=== PATIENT | female | born 1965 | race African-American/Black ===

== ENCOUNTER 2021-02-14 08:36 | Outpatient (REF) | payer OTHER, SELFPAY ==
--- NOTE | ~2021-02-14 | XR_ITS ---
EXAMINATION: XR knee LT 3V CLINICAL INFORMATION: Reason for Exam M25.569 - Pain in unspecified knee COMPARISON: None available at the time of this dictation. TECHNIQUE: Bilateral frontal, left lateral and patella sunrise view. FINDINGS: BONES: No fracture or dislocation is present. JOINTS: Mild narrowing of joint spaces suggest mild DJD. SOFT TISSUE: There are heavy vascular calcifications. XR/XR knee LT 3V IMPRESSION: Mild degenerative osteoarthritis involving primarily medial compartment.
== END 2021-02-14 08:37 | disposition home or self-care (01) ==
LOC: HO.HOSX 08:36
PROVIDERS: Visit Provider Physician Assistant
DX: M17.12 Unilateral primary osteoarthritis, left knee (principal); M25.562 Pain in left knee; Z88.1 Allergy status to other antibiotic agents; Z88.8 Allergy status to other drugs, medicaments and biological substances
CPT/HCPCS: 20610; 73562; J1040

== ENCOUNTER 2022-07-15 08:23 | Outpatient (REF) | payer OTHER, SELFPAY ==
--- NOTE | ~2022-07-15 | XR_ITS ---
EXAMINATION: XR HAND, RIGHT CLINICAL INFORMATION: Pain COMPARISON: None TECHNIQUE: PA, lateral, and oblique views of the right hand. FINDINGS: The bones and soft tissues are normal. No fracture. Alignment is anatomic. Joint spaces are maintained. No erosions or soft tissue calcifications. XR/XR hand RT min 3V IMPRESSION: Normal right hand.
== END 2022-07-15 08:24 | disposition home or self-care (01) ==
LOC: HO.HOSX 08:23
PROVIDERS: Visit Provider Orthopaedic Surgery
DX: M65.311 Trigger thumb, right thumb (principal)
CPT/HCPCS: 20550; 73130; J1100

== ENCOUNTER 2023-11-17 08:40 | Outpatient (AMB) | payer OTHER, SELFPAY ==
--- NOTE | 2023-11-17 08:43 | A.OFFVIS_ITS ---
Intake Intake Visit Reasons: Newprob-Left thumb pain- Intake Note: Lisa 58 yr old female who is right hand dominant, presents today for a new problem visit for her Left thumb pain. Patient reports her thumb strated to lock about 4 months ago and is very painful. S/P right thumb trigger injection from 10/15/[address] Flowers. Patient is requesting an injection today. Allergies amoxicillin Allergy (Unknown, Verified 11/17/23 08:51) unk doxycycline Allergy (Unknown, Verified 11/17/23 08:51) unk Erythromycin Allergy (Unknown, Uncoded 11/17/23 08:51) unk HPI Newprob-Left thumb pain- HPI Details Lisa is a 58 year old right hand dominant woman who returns with complaints of new left thumb locking. She says for ~4 months now her left thumb has been locking painfully on her. She found good relief from a right trigger thumb injection on 07/15/22, and would like to discuss an injection today. 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 Review of Systems Const All systems reviewed & are unremarkable except as noted in HPI and below Physical Exam Const General: no acute distress and alert Orientation/consciousness: patient oriented x3 Neuro General: patient oriented x3 Extrem Other: Evaluation of Left Upper Extremity: The patient is alert, oriented, and in no acute distress Neuro: Median, Ulnar, Radial nerves motor and sensory intact and sensation is normal to the tips of all digits Vascular: Cap refill brisk ROM: She can make a fist and extend all her digits Visible and palpable locking & catching of the thumb Tender over the a1 sky of the thumb Psych Appearance: grossly normal Affect: normal affect Attitude: cooperative Office Procedures Fracture Care Details: No fracture, injection Fracture Billing Code: Fracture Billing Code Assessment & Plan Assessment & Plan (1) Trigger thumb, right thumb: Code(s): M65.311 - Trigger thumb, right thumb (2) Trigger thumb, left thumb: Code(s): M65.312 - Trigger thumb, left thumb Plan Assessment & Plan: 1. Left trigger thumb I educated her about this condition I discussed operative and non-operative treatment options She wishes to proceed with an injection Injection #1: The risks and benefits of a steroid injection including but not limited to risk of damage to blood vessels, nerves, tendons, infection, skin bleaching, failure to improve symptoms, increased pain, and possible need for further injections or other intervention were discussed with the patient and the patient wishes to proceed with the steroid injection. Once consent was obtained, I sterilely prepped the area over the A1 sky of the flexor tendon sheath of the left thumb. I then injected the flexor tendon sheath with a combination of 1 mL of dexamethasone (4mg/ml), and 1% lidocaine. The patient tolerated the procedure well with no complications. If the patient continues to have locking and catching 4-6 weeks following this injection, they may call to schedule appointment to be seen for possible A1 sky release. Follow-up prn 2. Right trigger thumb, S/P injection Date of Injection: 07/15/22 Good resolution of her symptoms Scribed for Mae Flowers MD by Kwame Hernandez medical records field technician, on 11/17/23 at 9:10 AM, EST. Coding Level of Care Code Est Pt Level 4 (88108) Diagnoses Trigger thumb, right thumb M65.311 Trigger thumb, left thumb M65.312 CPT Codes Fracture Care - Fracture Billing Code: Fracture Billing Code ([id number])
== END 2023-11-17 09:18 | disposition home or self-care (01) ==
PROVIDERS: PCP Internal Medicine; Visit Provider Orthopaedic Surgery
DX: M65.311 Trigger thumb, right thumb (principal); M65.312 Trigger thumb, left thumb
CPT/HCPCS: 20550; 99213

== ENCOUNTER → 2023-11-17 08:40 | Outpatient (BNVA) | payer OTHER, SELFPAY | PROVIDERS: PCP Internal Medicine; Visit Provider Orthopaedic Surgery | DX: M65.312 Trigger thumb, left thumb (principal); M65.311 Trigger thumb, right thumb | CPT/HCPCS: 20550; J1100 ==

== ENCOUNTER 2024-03-08 12:31 | Outpatient (AMB) | payer OTHER, SELFPAY ==
--- NOTE | 2024-03-08 12:49 | A.OFFVIS_ITS ---
Intake Visit Reasons: OV-left thumb injection-last injection 11/17/23 Intake Note: Lisa 59 yr old female presents today for her left thumb injection s/p trigger injection from 11/17/23. States injection did not help, however she would like to repeat. Allergies amoxicillin Allergy (Unknown, Verified 11/17/23 08:51) unk doxycycline Allergy (Unknown, Verified 11/17/23 08:51) unk Erythromycin Allergy (Unknown, Uncoded 11/17/23 08:51) unk HPI HPI OV-left thumb injection-last injection 11/17/23: Details: Lisa is a 59 year old right hand dominant woman who returns to discuss her le ft trigger thumb, S/P injection on 11/17/23 She says she continues to have pain & locking of her thumb. She found no relief from her previous injection. She would like to try a repeat injection today as she is currently not interested in surgery. She reports numbness in the right thumb, and index finger. Symptoms intermittent, but daily, worse with activities. She denies ever having done a NCS. She found good relief from a right trigger thumb injection on 07/15/22. 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 Physical Exam Const General: no acute distress and alert Orientation/consciousness: patient oriented x3 Neuro General: patient oriented x3 Extrem Other: Evaluation of Left Upper Extremity: The patient is alert, oriented, and in no acute distress Neuro: Median, Ulnar, Radial nerves motor and sensory intact and sensation is normal to the tips of all digits Vascular: Cap refill brisk ROM: She can make a fist and extend all her digits Visible and palpable locking & catching of the thumb Tender over the a1 sky of the thumb Psych Appearance: grossly normal Affect: normal affect Attitude: cooperative Office Procedures Fracture Care Details: No fracture, injection Fracture Billing Code: Fracture Billing Code Assessment & Plan Assessment & Plan (1) Trigger thumb, right thumb: Code(s): M65.311 - Trigger thumb, right thumb Category: Medical (2) Trigger thumb, left thumb: Code(s): M65.312 - Trigger thumb, left thumb Category: Medical (3) Numbness and tingling in right hand: Code(s): R20.0 - Anesthesia of skin; R20.2 - Paresthesia of skin Category: Medical Plan Assessment & Plan: 1. Left trigger thumb, S/P injection Date of Injection: 11/17/23 I educated her about this condition She found no relief from her prior injection I discussed operative and non-operative treatment options The patient would like to proceed with a repeat injection today, as she is not ready to consider surgery. Injection #1: The risks and benefits of a steroid injection including but not limited to risk of damage to blood vessels, nerves, tendons, infection, skin bleaching, failure to improve symptoms, increased pain, and possible need for further injections or other intervention were discussed with the patient and the patient wishes to proceed with the steroid injection. Once consent was obtained, I sterilely prepped the area over the A1 sky of the flexor tendon sheath of the Left thumb. I then injected the flexor tendon sheath with a combination of 1 mL of dexamethasone (4mg/ml), and 1% lidocaine. The patient tolerated the procedure well with no complications. If the patient continues to have locking and catching 4-6 weeks following this injection, they may call to schedule appointment to discuss alternative treatment options 2. Right hand numbness In the median nerve distribution, particularly the thumb & index finger Symptoms intermittent, but daily, worse at night I educated hr about carpal & cubital tunnel syndrome I ordered a NCS to assess for peripheral nerve compression She will follow up when completed for review 3. Right trigger thumb, S/P injection Date of Injection: 07/15/22 Good resolution of her symptoms Scribed for Mae Flowers MD by Kwame Lubanszky, clinical medical transcriptionist, on 03/08/24 at 1:30 PM, EST. Orders: Orders NE nerve conduction velocity Today R20.0 - Anesthesia of skin, R20.2 - Paresthesia of skin NE electromyogram (EMG) Today R20.0 - Anesthesia of skin, R20.2 - Paresthesia of skin Coding Level of Care Code Est Pt Level 3 (01905) Diagnoses Trigger thumb, right thumb M65.311 Trigger thumb, left thumb M65.312 Numbness and tingling in right hand R20.0; R20.2 CPT Codes Fracture Care - Fracture Billing Code: Fracture Billing Code ([id number])
== END 2024-03-08 13:31 | disposition home or self-care (01) ==
PROVIDERS: PCP Internal Medicine; Visit Provider Orthopaedic Surgery
DX: M65.311 Trigger thumb, right thumb (principal); M65.312 Trigger thumb, left thumb; R20.0 Anesthesia of skin; R20.2 Paresthesia of skin
CPT/HCPCS: 20550; 99213

== ENCOUNTER → 2024-03-08 12:31 | Outpatient (BNVA) | payer OTHER, SELFPAY | PROVIDERS: PCP Internal Medicine; Visit Provider Orthopaedic Surgery | DX: M65.312 Trigger thumb, left thumb (principal); M65.311 Trigger thumb, right thumb; R20.0 Anesthesia of skin; R20.2 Paresthesia of skin | CPT/HCPCS: 20550; J1100 ==

== ENCOUNTER 2024-06-09 12:28 | Outpatient (AMB) | payer OTHER, SELFPAY ==
--- NOTE | 2024-06-09 12:30 | MHC.OFFVIS ---
Intake Visit Reasons: New prob right knee pain Intake Note: Lisa is a 59 year old female who presents today for a new problem visit with complaints of right knee pain. Patient reports that the right knee has been painful intermittently for about 4-5 months. She wears a brace for some support which does give he some stability. The knee is stiff after sitting with it bend for long periods of time, and pain is worsened with prolonged sitting or walking. She taked Naproxen and tylenol for her pain. She finds more relief with the Tylenol than naproxen. Allergies acetaminophen [From Percocet] Allergy (Mild, Verified 06/09/24 12:33) Itching oxycodone Allergy (Mild, Verified 06/09/24 12:33) Itching amoxicillin Allergy (Unknown, Verified 11/17/23 08:51) unk doxycycline Allergy (Unknown, Verified 11/17/23 08:51) unk Erythromycin Allergy (Unknown, Uncoded 11/17/23 08:51) unk HPI HPI New prob right knee pain: Details: This is a 59 yo F with several months of right knee pain. She denies injury and states the knee was swelling but has improved. She describes pain when standing from a seated position and the initiation of gait. This improves with time but then returns when she comes down. She denies injury. She is scheduled for spine surgery in the upcoming month and was hoping to get an injection today. She has had injections in her left knee which have been helpful in the past. 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 Negative Casa's. 0-130 degrees of motion. Office Procedures Joint Injection/Aspiration Joint Injection/Aspiration Details: Injected 1 mL of Decadron and 3 mL 1% lidocaine and 3 mL of 0.25% Marcaine. Site was prepped using aseptic technique. Patient tolerated the procedure well. Primary Site: right knee Approach Used: anterolateral Coding - Large joint Procedure code (CPT) selection complete Assessment & Plan Assessment & Plan (1) Localized osteoarthritis of right knee: Code(s): M17.11 - Unilateral primary osteoarthritis, right knee Category: Medical Plan: This is a 59-year-old woman with osteoarthritis of the right knee. I injected her right knee today. I discussed treatment options with her. At this time she is accustomed to living with some discomfort and acknowledges that she has arthritis. Hopefully this injection will be helpful. She can return to see me for repeat injections no sooner than 3 months or if her condition should deteriorate. Coding Level of Care Code Est Pt Level 3 (32052) Diagnoses Localized osteoarthritis of right knee M17.11 CPT Codes Coding - Large joint: 48504 - Large joint ([id number])
== END 2024-06-09 13:04 | disposition home or self-care (01) ==
PROVIDERS: PCP Internal Medicine; Visit Provider Orthopaedic Surgery
DX: M17.11 Unilateral primary osteoarthritis, right knee (principal)
CPT/HCPCS: 20610; 99213

== ENCOUNTER → 2024-06-09 12:28 | Outpatient (BNVA) | payer OTHER, SELFPAY | PROVIDERS: PCP Internal Medicine; Visit Provider Orthopaedic Surgery | DX: M17.11 Unilateral primary osteoarthritis, right knee (principal) | CPT/HCPCS: 20610; J0665; J1100 ==

== ENCOUNTER 2024-08-31 14:15 | Outpatient (AMB) | payer OTHER, SELFPAY ==
--- NOTE | 2024-08-31 14:28 | A.OFFVIS_ITS ---
Intake Visit Reasons: OV - Right Knee OA - Last Injection 06/09/24 Intake Note: Lisa is a 59 year old female who presents today for a follow up of her Right knee OA. She was last seen on 06/09/24 where the right knee was injected. Patient reports that the injection was not helpful and she would like to discuss a lternative treatment options. Allergies acetaminophen [From Percocet] Allergy (Mild, Verified 09/01/24 10:47) Itching oxycodone Allergy (Mild, Verified 09/01/24 10:47) Itching amoxicillin Allergy (Unknown, Verified 09/01/24 10:47) unk doxycycline Allergy (Unknown, Verified 09/01/24 10:47) unk Erythromycin Allergy (Unknown, Uncoded 08/31/24 14:28) unk HPI HPI OV - Right Knee OA - Last Injection 06/09/24: Details: Lisa is a 59 year old female who presents today for a follow up of her Right knee OA. She was last seen on 06/09/24 where the right knee was injected. Patient reports that the injection was not helpful and she would like to discuss alternative treatment options. [facility] Medical History Arthritis Pre-diabetes HTN (hypertension) Surgical History (Updated 09/01/24 @ 10:52 by Mili Myrick CMA) History of back surgery Hx of tonsillectomy History of cholecystectomy History of appendectomy Family History (Updated 09/01/24 @ 10:53 by Mili Myrick CMA) Mother Cancer Hypertension Abdominal seizure Father Family history unknown Social History (Updated 09/01/24 @ 10:52 by Mili Myrick CMA) Alcohol intake: current Alcohol intake frequency: holidays/special occasions only Alcohol type: wine Patient Tobacco Use Status: Never used Tobacco Substance Use Type: Marijuana Current occupational status: employed 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 Negative Casa's. 0-130 degrees of motion. Assessment & Plan Assessment & Plan (1) Localized osteoarthritis of right knee: Code(s): M17.11 - Unilateral primary osteoarthritis, right knee Category: Medical Plan: This is a 59-year-old woman with osteoarthritis of the right knee. Steroid injection was only briefly helpful. We discussed other treatment options and would like to proceed forward with viscosupplementation. Coding Level of Care Code Est Pt Level 3 (91627) Diagnoses Localized osteoarthritis of right knee M17.11
== END 2024-08-31 14:56 | disposition home or self-care (01) ==
PROVIDERS: PCP Internal Medicine; Visit Provider Orthopaedic Surgery
DX: M17.11 Unilateral primary osteoarthritis, right knee (principal)
CPT/HCPCS: 99213

== ENCOUNTER → 2024-08-31 14:15 | Outpatient (BNVA) | payer OTHER, SELFPAY | PROVIDERS: PCP Internal Medicine; Visit Provider Orthopaedic Surgery ==

== ENCOUNTER → 2024-09-01 10:13 | Outpatient (BNVA) | payer OTHER, SELFPAY | PROVIDERS: PCP Internal Medicine; Visit Provider Surgery ==

== ENCOUNTER 2024-09-18 11:36 | Outpatient (AMB) | payer OTHER, SELFPAY ==
--- NOTE | 2024-09-18 11:39 | MHC.OFFVISWM ---
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 *SEE COMMENTS* Allergies acetaminophen [From Percocet] Allergy (Mild, Verified 09/18/24 11:50) Itching oxycodone Allergy (Mild, Verified 09/18/24 11:50) Itching amoxicillin Allergy (Unknown, Verified 09/18/24 11:50) unk doxycycline Allergy (Unknown, Verified 09/18/24 11:50) unk Erythromycin Allergy (Unknown, Uncoded 09/18/24 11:50) unk Medication List - Last Reconciled 09/18/24 by Danial Cowan MD acetaminophen 500 mg PO Q6H PRN atorvastatin 80 mg PO DAILY cholecalciferol (vitamin D3) 50 mcg PO DAILY diazepam 2 mg PO BID PRN diclofenac sodium 75 mg PO BID dulaglutide (Trulicity) 1.5 mg subcut QWEEK fluticasone propionate 50 mcg/actuation (Flonase Allergy Relief) 1 spray intranasal DAILY hydrochlorothiazide 25 mg PO DAILY irbesartan 300 mg PO DAILY loratadine (Allergy Relief (loratadine)) 10 mg PO DAILY metformin 500 mg PO DAILY montelukast 10 mg PO QPM naproxen 375 mg PO BID PRN omeprazole 20 mg PO BID tramadol 50 mg PO DAILY valacyclovir (Valtrex) 1,000 mg PO DAILY HPI Comments Details: Previous weight loss efforts: Weight watchersNancy Wakes up: 6am, Sleeps: 9pm Breakfast: 9am (cereal, pancakes, eggs) Lunch: 12pm (Sandwichwes, soups) Dinner: 6pm (chicke, rice, potatoes, pasta) Snacks: 10am (banana, or apple), 3-4pm (fruit), 8pm (cereal) Exercise: none Fluids: Coffee 1cup/day with splenda, hot tea: 1 cup/day with honey, soda: none, juice: orange 2/wk, ETOH: daily (Sonya) [facility] Medical History (Updated 09/18/24 @ 13:03 by Danial Cowan MD) Non-insulin dependent type 2 diabetes mellitus GERD (gastroesophageal reflux disease) Herpes Anxiety DJD (degenerative joint disease) Hyperlipidemia BMI 35.0-35.9,adult Obesity Arthritis Pre-diabetes HTN (hypertension) Surgical History History of back surgery Hx of tonsillectomy History of cholecystectomy History of appendectomy Family History Mother Cancer Hypertension Abdominal seizure Father Family history unknown Social History Alcohol intake: current Alcohol intake frequency: holidays/special occasions only Alcohol type: wine Patient Tobacco Use Status: Never used Tobacco Substance Use Type: Marijuana Current occupational status: employed 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 , 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 Physical Exam Vital Signs: Last Vital Signs Temp 97.3 F 09/18/24 11:47 Pulse 89 09/18/24 11:47 BP 138/73 09/18/24 11:47 Pulse Ox 100 09/18/24 11:47 Oxygen Delivery Method Room Air 09/18/24 11:47 BMI result Body Mass Index 35.6 GI Inspection: Yes normal to inspection (android ) and Yes obesity Palpation (GI): Soft to palpation Extrem Right lower extremity: normal to inspection Left lower extremity: normal to inspection Assessment & Plan Assessment & Plan (1) Obesity: Code(s): E66.9 - Obesity, unspecified Category: Medical Qualifiers: Obesity type: due to excess calories Obesity classification: adult class 2 (BMI 35 - 39.9) Serious obesity comorbidity presence: with serious comorbidity Body mass index: BMI 35.0-35.9 Qualified Code(s): E66.812 - Obesity, class 2; E66.01 - Morbid (severe) obesity due to excess calories; Z68.35 - Body mass index [BMI] 35.0-35.9, adult Plan: 1.? Plan for lap sleeve gastrectomy. If diaphragmatic or ventral hernias are present at time of surgery, these will be repaired laparoscopically as well. Risks and complications include possible conversion to an open procedure, anastomotic leak, bleeding requiring transfusion, small bowel obstruction, , DVT and pulmonary embolism, cardiac, or pulmonary complications, as skilled nursing complications such as anastomotic ulcer, insufficient weight loss and vitamin deficiencies. I emphasized the importance of close follow-up, adherence to instructions and good communication. 2. You will receive a link of our software angel to generate an individualized nutritional and exercise plan specific for you. Please send me a screenshot of the plans you will generate Meal to include lean meat (beef, fish, pork, turkey, chicken), or bengali yogurt, or egg whites, or beans with a salad with olive oil and fruits (berries, pears, apples, kiwi). Avoid salt, breads, potatoes, rice, pasta, desserts. ?3. If you choose shakes, each shake would be drunk slowly, like coffee in a period of 2 hours. ?4. If you choose bars, cut each bar in 4 pieces and eat each piece in 30min ?to make each bar last 2 hours. ?5. I emphasized the importance of measuring accurately the food portion and measure it when serving the food in plate ?6. The meal portions include a specific number of forks of meat and salad. You always eat the meat portion but you can replace up to half of salad/vegetables portion with rice, potatoes or pasta, or a fruit ?if you like. The less you do it the better weight loss will be. ?7. One full-size fork is what it can be scooped on the fork without falling aside and not what can be bit with the fork. Use regular forks like those you find in a typical restaurant. ?8.? Please buy the body composition scale we discussed and send me weight measurements as soon as possible and then once a week. Always include your diet and exercise plan. 9. The best choice would be to purchase a stationary bike, elliptical or treadmill at home that can track calories. Let me know if you do so I can give you an exercise plan. ?10.?Start the Zepbound when you get your body composition scale once a week. Use a calorie-counting angel to track your daily calories to create a calorie deficit with a target of consuming 2030-1719 calories per day. We discussed the potential side effects of Zepbound such as nausea, vomiting, abdominal pain, diarrhea and constipation and you will need to contact me if any of these symptoms occur or for any other new symptom you may experience ?11. Goal is to lose at least 1.5-2lbs per week ?12. Goal to lose 10% of your weight before surgery, which is about 25lbs. Ultimate weight goal: 225lbs before surgery 13. Please follow the diet plan exactly without any change. If you don't like something about the plan or you feel hungry you need to communicate with me so I can help you revise the plan. You should not change the plan yourself. 14. To be scheduled for EGD due to the history of sleeve gastrectomy and anemia. The possibility of biopsies was discussed. Patient needs to avoid use of NSAIDs and aspirin for 1 week prior to EGD. You must be on liquids only the day before your endoscopy. Risks of perforation and bleeding was discussed with the patient. This will be an outpatient procedure with IV sedation. 15. Emphasized the importance of checking his blood glucose levels frequently and daily and to report to me any blood glucose below 100, so I can adjust his insulin and prevent hypoglycemic episodes. 16. Emphasized the importance of monitoring the blood pressure daily in am when wakes up and two more times throughout the day. If systolic blood pressure is 110 mmHg, or less I explained to the patient that needs to notify me. Also I explained the symptoms of orthostatic hypotension (dizziness and lightheadedness) for which the patient also needs to notify me. Medications: New tirzepatide (weight loss) (Zepbound) for 4 weeks 2.5 mg (0.5 mL) subcut QWEEK 2 mL 0RF E11.9 - Type 2 diabetes mellitus without complications, E66.01 - Morbid (severe) obesity due to excess calories, E66.812 - Obesity, class 2, Z68.35 - Body mass index [BMI] 35.0-35.9, adult
[2024-09-18 11:47] VITALS: BP 134/62; PULSE 83; TEMP 35.4; O2SAT 83; BMI 39.1
--- OUTSIDE RECORDS SUMMARY | 2024-09-20 15:16 | XMS_ITS | Continuity of Care Document ---
Author Organization [facility] [address], [address] [place] [address]- Care Team Providers Care Power And Recovery Supervisor Name Role Phone Diana Rabago MD Primary Care Physician Encounter [facility] Date(s): 07/24/24 - 08/23/[address] [place], [place] [address] Encounter Type: Triage Allergies, Adverse Reactions, Alerts Substance Criticality Severity Reaction Reaction Severity Status doxycycline rash Active clindamycin Active amoxicillin rash Active Percocet itchy Active Bactrim rash Active Peanuts Itch Active Seafood Itch Active oxyCODONE itchy Active erythromycin rash Active angiotensin converting enzym e inhibitors COUGH Active Levaquin rash Active Immunizations Given and Recorded Vaccine Date Status Refusal Reason influenza virus vaccine, inactivated 07/18/24 Give n influenza virus vaccine, inactivated 08/05/23 Hi rded influenza virus vaccine, inactivated 06/26/22 Hi rded influenza virus vaccine, inactivated 1 09/08/21 Gi queta influenza virus vaccine, inactivated 07/30/20 Give n influenza virus vaccine, inactivated 07/05/18 Give n influenza virus vaccine, inactivated 2 08/24/17 Gi queta influenza virus vaccine, inactivated 08/25/16 Give n influenza virus vaccine, inactivated 3 07/11/13 Gi queta influenza virus vaccine, inactivated 4 04/12/13 Gi queta influenza virus vaccine, inactivated 5 08/11/11 Gi queta SARS-CoV-2(COVID-19)mRNA-LNP vac([id number]) 08/05/23 Recorded pneumococcal 20-valent conjugate vaccine 10/19/22 Given [id number] 12y+ bivalent booster vax 06/26/22 Recorded SARS-CoV-2 (COVID-19) mRNA BNT-162b2 vac 08/26/21 Recorded SARS-CoV-2 (COVID-19) mRNA BNT-162b2 vac 01/20/21 Recorded SARS-CoV-2 (COVID-19) mRNA BNT-162b2 vac 12/30/20 Recorded Influenza Virus Vaccine (oldterm) 07/19/19 Recorde d Influenza Virus Vaccine (oldterm) 6 08/09/08 Given tetanus/diphtheria/pertussis, acel(Tdap) 7 10/25/15 Given FluLaval (oldterm) 07/30/10 Given tetanus-diphtheria toxoids (Td) 11/16/05 Given Pneumococcal Vaccine (oldterm) 01/26/05 Given 1Result Comment: [facility] [id number] 2Result Comment: [08/24/2017] [facility] [id number] 3Result Comment: [07/11/2013] given w/o incidense...mh 4Admin Note: per pt 5Admin Note: @ work 6Admin Note: sonofi pasteur, pt denies allergies and cold symptoms, inj given w/o incident 7Result Comment: [10/25/2015] givin with out incident Problem List Condition Confirmation Course Effective Dates Status H ealth Status Informant Abnormal anal Papanicolaou smear 1 Confirmed Active Anemia Confirmed Active Morbid obesity with BMI of 40.0-44.9, adult Confirmed Active Cholecystectomy Confirmed 03/01/06 Active Lumbar spine root compression Confirmed Active Cough variant asthma Confirmed Active Diabetes Confirmed Active Passage of loose stools Confirmed Active Endometrial hyperplasia Confirmed 03/01/06 Active Encounter for diagnostic colonoscopy due to change in bowel habits Confirmed Active MACARIO (generalized anxiety disorder) Confirmed 09/15/13 Active Gastroesophageal reflux disease with cough Confirmed 03/01/06 Active Hip pain Confirmed Active 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 Confirmed Active Hyperlipidemia Confirmed 03/01/06 Active Hypertension Confirmed 03/01/06 Active Lactose intolerance Confirmed 03/01/06 Active Lumbar radiculopathy Confirmed Active Anterolisthesis of lumbar spine Confirmed Active Lumbar spondylosis Confirmed Active Microalbuminuric diabetic nephropathy Confirmed 03/01/06 Active Myofascial pain syndrome Confirmed 03/01/06 Active Lower extremity pain Confirmed Active Severe obesity (BMI 35.0-39.9) with comorbidity Confirmed Active Shoulder pain Confirmed Active Smoker Confirmed Active Low back pain Confirmed Active 1HPV positive Social History Social History Type Response Smoking Status Former smoker; Tobac co user in household: No; Other: 2-3 cigs a dayquit may 2017; entered on: 08/24/17 Sex Sex Representation Female (finding) Patient Care team information Care Team Personnel Name: Juliette North RN Position: [facility] RN Member Role: Primary Care Nurse Name: Diana Rabago MD Position: [facility] Physician - Primary Care Member Role: PCP Address: [address] [place] [address] Adult and Pediatric Medicine [address] Telecom: Name: Annette Morales RN Position: S RN Member Role: Primary Care Nurse Name: Ivett Arroyo RN Position: S RN Member Role: Primary Care Nurse Name: Roseanna Sweet RN Position: S RN Member Role: Primary Care Nurse Name: Alejandra Ovalles RN Position: S RN Member Role: Primary Care Nurse Name: Steve Ibarra Position: S RN Member Role: Primary Care Nurse Name: Delbert Shelton RN Position: S RN Member Role: Primary Care Nurse Name: Jacqui Torre RN Position: [facility] OB RN Member Role: Primary Care Nurse Care Team Related Persons Name: LUCIAN GLEZ Name: LUCIAN GLEZ AND SHAQUILLE Name: CAROLYN CLINE Insurance Providers Guarantor name: EDWIN CLINE [facility] Information #: 1 Payer: [facility] H61 Member Number: NA Policy Number: NA Group Number: NA
--- OUTSIDE RECORDS SUMMARY | 2024-09-20 15:16 | XMS_ITS | Continuity of Care Document ---
Author Organization [facility] Address [address] [place] [address]- Care Team Providers Care System Safety Manager Name Role Phone Diana Rabago MD Primary Care Physician Encounter [facility] Date(s): 08/07/24 - 09/06/24 [facility] [address] [place], [place] [address] Encounter Type: Triage Allergies, Adverse Reactions, Alerts Substance Criticality Severity Reaction Reaction Severity Status doxycycline rash Active clindamycin Active Percocet itchy Active oxyCODONE itchy Active erythromycin rash Active amoxicillin rash Active angiotensin converting enzym e inhibitors COUGH Active Levaquin rash Active Bactrim rash Active Peanuts Itch Active Seafood Itch Active Immunizations Given and Recorded Vaccine Date [...] vaccine, inactivated 5 08/11/11 Gi queta SARS-CoV-2(COVID-19)mRNA-LNP vac([id number]) 08/05/23 Recorded pneumococcal 20-valent conjugate vaccine 10/19/22 Given [id number] 12y+ bivalent booster vax 06/26/22 Recorded SARS-CoV-2 (COVID-19) mRNA BNT-162b2 vac 08/26/21 Recorded SARS-CoV-2 (COVID-19) mRNA BNT-162b2 vac 01/20/21 Recorded SARS-CoV-2 (COVID-19) mRNA BNT-162b2 vac 12/30/20 Recorded Influenza Virus Vaccine (oldterm) 07/19/19 Recorde d Influenza Virus Vaccine (oldterm) 6 08/09/08 Given tetanus/diphtheria/pertussis, acel(Tdap) 7 10/25/15 Given FluLaval (oldterm) 07/30/10 Given tetanus-diphtheria toxoids (Td) 11/16/05 Given Pneumococcal Vaccine (oldterm) 01/26/05 Given 1Result Comment: [facility] [id number] 2Result Comment: [08/24/2017] [facility] [id number] 3Result Comment: [07/11/2013] given w/o incidense...mh 4Admin Note: per pt 5Admin Note: @ work 6Admin Note: sonofi pasteur, pt denies allergies and cold symptoms, inj given w/o incident 7Result Comment: [10/25/2015] theodora with out incident Problem List Condition Confirmation [...] Team Personnel Name: Juliette North RN Position: S RN Member Role: Primary Care Nurse Name: Diana Rabago MD Position: [facility] Physician - Primary Care Member Role: PCP Address: [address] [place] [address] Adult and Pediatric Medicine [address] Telecom: Name: Annette Morales RN Position: [facility] RN Member Role: Primary Care Nurse Name: Ivett Arroyo RN Position: S RN Member Role: Primary Care Nurse Name: Roseanna Sweet RN Position: S RN Member Role: Primary Care Nurse Name: Alejandra Ovalles RN Position: [facility] RN Member Role: Primary Care Nurse Name: Steve Ibarra Position: S RN Member Role: Primary Care Nurse Name: Delbert Shelton RN Position: S RN Member Role: Primary Care Nurse Name: Jacqui Torre RN Position: [facility] OB RN Member Role: Primary Care Nurse Care Team Related Persons Name: LUCIAN GLEZ Name: LUCIAN GLEZ AND SHAQUILLE Name: CAROLYN CLINE Insurance Providers Guarantor name: EDWIN CLINE [facility] Information #: 1 Payer: [facility] H61 Member Number: NA Policy Number: NA Group Number: NA
--- OUTSIDE RECORDS SUMMARY | 2024-09-20 15:17 | XMS_ITS | Continuity of Care Document ---
Author Organization [facility] Address [address] [place] [address] [address], [address] [place] [address]- Care Team Providers Care Continuous Washer Operator Name Role Phone Diana Rabago MD Primary Care Phys[id number] - 08/28/[address] [place], [place] [address] Attending Physician: Anushka Christianson DO Referring Physician: Diana Rabago MD Encounter Type: Office Visit Allergies, Adverse Reactions, Alerts Substance Criticality Severity Reaction Reaction Severity Status doxycycline rash Active clindamycin Active Seafood Itch Active oxyCODONE itchy Active erythromycin rash Active amoxicillin rash Active angiotensin converting enzym e inhibitors COUGH Active Percocet itchy Active Levaquin rash Active Bactrim rash Active Peanuts Itch Active Immunizations Given and Recorded Vaccine [...] vaccine, inactivated 5 08/11/11 Gi queta SARS-CoV-2(COVID-19)mRNA-LNP vac([id number]) 08/05/23 Recorded pneumococcal 20-valent conjugate vaccine 10/19/22 Given [id number] 12y+ bivalent booster vax 06/26/22 Recorded SARS-CoV-2 (COVID-19) mRNA BNT-162b2 vac 08/26/21 Recorded SARS-CoV-2 (COVID-19) mRNA BNT-162b2 vac 01/20/21 Recorded SARS-CoV-2 (COVID-19) mRNA BNT-162b2 vac 12/30/20 Recorded Influenza Virus Vaccine (oldterm) 07/19/19 Recorde d Influenza Virus Vaccine (oldterm) 6 08/09/08 Given tetanus/diphtheria/pertussis, acel(Tdap) 7 10/25/15 Given FluLaval (oldterm) 07/30/10 Given tetanus-diphtheria toxoids (Td) 11/16/05 Given Pneumococcal Vaccine (oldterm) 01/26/05 Given 1Result Comment: [facility] [id number] 2Result Comment: [08/24/2017] [facility] [phone] 3Result Comment: [07/11/2013] given w/o incidense...mh 4Admin [...] Low back pain Confirmed Active 1HPV positive Vital Signs Most recent to oldest [Reference Range]: 1 Height 170.18 cm (08/21/24 11:32 AM) Weight 113 kg (08/21/24 11:32 AM) Body Mass Index [18.5-24.99 kg/m2] 39.02 kg/m2 *>HHI* (08/21/24 11:32 AM) Social History Social History Type Response Smoking Status Former smoker; Tobac co user in household: No; Other: 2-3 cigs a dayquit may 2017; entered on: 08/24/17 Sex Sex Representation Female (finding) Patient Care team information Care Team Personnel Name: Juliette North RN Position: [facility] RN Member Role: Primary Care Nurse Name: Diana Rabago MD Position: [facility] Physician - Primary Care Member Role: PCP Address: [address] [place] [address] Adult and Pediatric [address] Telecom: Name: Annette Morales RN Position: [facility] RN Member Role: Primary Care Nurse [...] Care Nurse Name: Jacqui Torre RN Position: [facility] OB RN Member Role: Primary Care Nurse Care Team Related Persons Name: LUCIAN GLEZ Name: LUCIAN GLEZ AND SHAQUILLE Name: CAROLYN CLINE Insurance Providers Guarantor name: EDWIN CLINE [facility] Information #: 1 Payer: [facility] Member Number: [id number] Policy Number: DIANA Group Number: [id number] Health Plan Information #: 2 Payer: R H61 Member Number: [id number] Policy Number: DIANA Group Number: NA
--- OUTSIDE RECORDS SUMMARY | 2024-09-20 15:17 | XMS_ITS | Continuity of Care Document ---
Author Organization [facility] Address [address] [place] [address]- Care Team Providers Care Oral Pathologist Name Role Phone Diana Rabago MD Primary Care Physician [id number] - 08/24/24 [facility] [address] [place], [place] [address] Attending Physician: Diana Rabago MD Encounter Type: Office Visit Allergies, Adverse Reactions, Alerts Substance Criticality Severity Reaction Reaction Severity Status doxycycline rash Active clindamycin Active oxyCODONE itchy Active erythromycin rash Active [...] vaccine, inactivated 5 08/11/11 Gi queta SARS-CoV-2(COVID-19)mRNA-LNP vac([id number]) 08/05/23 Recorded pneumococcal 20-valent conjugate vaccine 10/19/22 Given [id number] 12y+ bivalent booster vax 06/26/22 Recorded SARS-CoV-2 (COVID-19) mRNA BNT-162b2 vac 08/26/21 Recorded SARS-CoV-2 (COVID-19) mRNA BNT-162b2 vac 01/20/21 Recorded SARS-CoV-2 (COVID-19) mRNA BNT-162b2 vac 12/30/20 Recorded Influenza Virus Vaccine (oldterm) 07/19/19 Recorde d Influenza Virus Vaccine (oldterm) 6 08/09/08 Given tetanus/diphtheria/pertussis, acel(Tdap) 7 10/25/15 Given FluLaval (oldterm) 07/30/10 Given tetanus-diphtheria toxoids (Td) 11/16/05 Given Pneumococcal Vaccine (oldterm) 01/26/05 Given 1Result Comment: [facility] [id number] 2Result Comment: [08/24/2017] [facility] [id number] 3Result Comment: [07/11/2013] given w/o incidense...mh 4Admin [...] oldest [Reference Range]: 1 Height 170.18 cm (08/17/24 3:07 PM) Weight 113.5 kg (08/17/24 3:07 PM) Oxygen Saturation [94-100 %] 100 % (08/17/24 3:07 PM) Pulse Rate [55-90 bpm] 71 bpm (08/17/24 3:07 PM) Body Mass Index [18.5-24.99 kg/m2] 39.19 kg/m2 *>HHI* (08/17/24 3:07 PM) Blood Pressure [90-138/55-84 mm Hg] 138/ 81mm Hg (08/17/24 3:07 PM) Mode of Delivery (Oxygen) Room air (08/17/24 3:07 PM) Blood pressure sites Arm, right (08/17/24 3:07 PM) Dry Weight 113.5 kg (08/17/24 3:07 PM) Weight Obtained Via Standing scale (08/17/24 3:07 PM) Dry Weight Obtained Via Standing scale (08/17/24 3:07 PM) Social History Social History Type Response Smoking Status Former smoker; Tobac co user in household: No; Other: 2-3 cigs a dayquit may 2017; entered on: 08/24/17 Sex Sex Representation Female (finding) Note * Lisbet Patterson: PERFORM Event Display: Patient Education/Instruction Authored Date: [id number] Ambulatory Adult Visit Summary [facility] [address] [place] [address] Name: EDWIN CLINE : 1965?? Visit: 08/17/2024 14:58?? Ambulatory Visit Instructions ?? Your Care Team Primary Care Provider Diana Rabago MD? This Visit Provider Diana Rabago MD Your Diagnosis Severe obesity (BMI 35.0-39.9) with comorbidity Lumbar spondylosis Cough variant asthma Vitals Signs Pulse Rate: 71 bpm Height: 170.18 cm Systolic Blood Pressure: 138 mm Hg Weight: 113.5 kg Diastolic Blood Pressure: 81 mm Hg Body Mass Index:??39.19 kg/m2??Critical Oxygen Saturation: 100 % Body surface area: 2.32 What to do next Instructions From Your Provider INCREASE TRULICITY to 1.5 mcg a week for weight loss use naproxen for??7 days then stop?? headache are related to your jaw.?? Scheduled Follow-Up Appointments Wednesday 11:30 AM EST ?? With: Anushka Christianson DO Where: [address] [place] [address]- Status: Pending Wednesday 1:30 PM EST ?? With: Nasima Carbajal Where: [facility] Status: Pending 2023 12:30 PM EST ?? With: Afua Ortega Where: [facility] Status: Pending Wednesday 3:20 PM EST ?? With: Diana Rabago MD Where: [facility] [address] [place] [address]- Status: Pending Wednesday 11:40 AM EST ?? With: Ashley Christopher MD Where: [facility] [address] [place] [address]- Status: Pending Medications The list below reflects the information in our records and provided by you today along with any changes made during this visit. Please continue your medications until treatment is completed or stopped by your provider. If this is different from the information you have or there are other questions,please contact the prescribing provider. What How Much When Why Instructions Changed Acetaminophen/ Butalbital/ Caffeine (acetaminophen/ butalbital/ caffeine 325 mg-50 mg-40 mg oral tablet) 1 tab(s) Oral Twice a day as needed for as needed Duration: 7 Days not more than 3 days a week ?? Changed Fluticasone Nasal (fluticasone 50 mcg/ inh nasal spray) 2 spray(s) Nasal Daily Severe obesity (BMI 35.0-39.9) with comorbidity Lumbar spondylosis Duration: 30 Days Pickup at [id number] Changed dulaglutide (Trulicity Pen 1.5 mg/ 0.5 mL subcutaneous solution) 0.5 Milliliter Subcutaneous Injection Every week Duration: 90 Days rotate injection sites ?? Printed Prescription Unchanged Acetaminophen (acetaminophen 500 mg oral tablet) 2 tab(s) Oral 3 times a day Unchanged Atorvastatin (atorvastatin 80 mg oral tablet) 1 tab(s) Oral Daily Unchanged Budesonide-Formoterol (Symbicort 160mcg/ 4.5mcg Inhaler) 2 puff(s) Oral Twice a day Duration: 30 Days Unchanged Cholecalciferol (Vitamin D3 1000 intl units oral tablet) 1 tab(s) Oral Daily Unchanged Diazepam (diazepam 2 mg oral tablet) Unchanged Diazepam (diazepam 2 mg oral tablet) 1 tab(s) Oral 3 times a day Unchanged Docusate (Colace sodium 100 mg oral capsule) 1 capsule Oral Twice a day as needed for for constipation Duration: 30 Days Unchanged Fluoxetine (FLUoxetine 40 mg oral capsule) 1 capsule Oral Daily Unchanged Gabapentin (gabapentin 300 mg oral capsule) 2 capsule Oral Twice a day Unchanged Hydrochlorothiazide (hydrochlorothiazide 25 mg oral tablet) 1 tab(s) Oral Daily Unchanged Irbesartan (irbesartan 300 mg oral tablet) 1 tab(s) Oral Daily Unchanged Loratadine (loratadine 10 mg oral tablet) 1 tab(s) Oral Daily rx resent to pharm ?? Unchanged Metformin (metFORMIN 500 mg oral tablet) 1 tab(s) Oral Daily with meals ?? Unchanged Miscellaneous Rx (ONE TOUCH ULTRA METER) See instructions USE TO TEST BLOOD SUGAR ONCE DAILY FOR E11.9. ?? Unchanged Miscellaneous Rx (ONE TOUCH ULTRA TEST STRIPS) See instructions USE TO TEST BLOOD SUGAR ONCE DAILY FOR E11.9. ?? Unchanged Montelukast (montelukast 10 mg oral tablet) 1 tab(s) Oral Daily IN THE PM. ?? Unchanged Omeprazole (omeprazole 20 mg oral enteric coated capsule) See instructions TAKE 1 CAPSULE BY MOUTH TWICE DAILY ?? Unchanged ValACYclovir (Valtrex 500 mg oral tablet) 2 tab(s) Oral Every 24 hours Duration: 30 Days Pharmacy Information [facility] #[id number]: [address] [place], [place] [phone] Medications and Immunizations Administered Medications Given During Visit No medications given during this visit.?? Allergies (NKA means No Known Allergies) Bactrim??(rash) Levaquin??(rash) Peanuts??(Itch) Percocet??(itchy) Seafood??(Itch) amoxicillin??(rash) angiotensin converting enzyme inhibitors??(COUGH) clindamycin doxycycline??(rash) erythromycin??(rash) oxyCODONE??(itchy) Common Emergency Awareness Tips IS IT A STROKE? Act FAST and Check for these signs: FACE Does the face look uneven? ARM Does one arm drift down? SPEECH Does their speech sound strange? TIME Call at any sign of stroke ?? Heart Attack Signs Chest discomfort: Most heart attacks involve discomfort in the center of the chest and lasts more than a few minutes, or goes away and comes back. It can feel like uncomfortable pressure, squeezing, fullness or pain. Discomfort in upper body: Symptoms can include pain or discomfort in one or both arms, back, neck, jaw or stomach. Shortness of breath: With or without discomfort. Other signs: Breaking out in a cold sweat, nausea, or lightheaded. Remember, MINUTES DO MATTER. If you experience any of these heart attack warning signs, call to get immediate medical attention! ?? Smoking can increase your chances of developing chronic health problems and can cause harmful effects to other family members in your house. If you smoke, you are strongly encouraged to quit. Please call [employer] [facility] at [phone] or 6-641-531DNAtriX ([phone]) or log in to [email or web address] for referrals to smoking cessation programs. ?? The National Suicide Prevention Hotline is available 03/05 if you or someone you know needs to find a reason to keep living. By calling 0-632-782-Delphix (4347) you'll be connected to a skilled, trained counselor at a crisis center in your area. [facility] [employer] Portal You can view and manage your care through the patient portal or by using a health care angel of your choosing. [facility] is a website that allows you to securely view your medical information including your hospital discharge summary, office visit summaries, medications and follow-up visits. You can also request appointments, renew medications, and request access to your medical information using a health care angel of your choosing, or just ask a question. You can enroll at [email or web address] or register during your next office visit. [facility], in keeping with [facility] guidance, no longer requires face masks for staff, patientsor visitors in most situations. Similiar to time spent indoors at other locations, there is the chance that you were exposed to repiratory viruses during your time with us (such as flu or COVID-19). If you develop symptoms concerning for a viral respiratory infection, please seek testing (and treatment if indicated) from your medical provider or home test kit. ?? Disclaimer: The information provided is of a general nature and is intended to be used in conjunction with the recommendations and advice of your health care practitioner. Every effort has been made to ensure that the information provided is accurate and complete at the time it is provided to you however, as your needs change, or, as new information becomes available, different or additional instructions may be required. ?? If you have questions, please consult with your primary care provider or pharmacist, as appropriate. This information is not intended to serve as substitution for assessment and evaluation by a qualified health care provider. If you do not have a primary care provider, you may find a [facility] provider by calling [facility] Link at [phone]. Patient Care team information Care Team Personnel Name: Julitete North RN Position: [facility] RN Member Role: Primary Care Nurse Name: Diana Rabago MD Position: [facility] Physician - Primary Care Member Role: PCP Address: [address] [place] [address] Adult and Pediatric [address] Telecom: Name: Annette Morales RN Position: S RN Member Role: Primary Care Nurse Name: Ivett Aroryo RN Position: S RN Member Role: Primary Care Nurse Name: Roseanna Sweet RN Position: S RN Member Role: Primary Care Nurse Name: Alejandra Ovalles RN Position: S RN Member Role: Primary Care Nurse Name: Steve Ibarra Position: S RN Member Role: Primary Care Nurse Name: Delbert Shelton RN Position: S RN Member Role: Primary Care Nurse Name: Jacqui Torre RN Position: [facility] OB RN Member Role: Primary Care Nurse Care Team Related Persons Name: LUCIAN GLEZ Name: LUCIAN GLEZ AND SHAQUILLE Name: CAROLYN CLINE Insurance Providers Guarantor name: EDWIN CLINE Health Plan Information #: 1 Payer: [facility] [id number] Member Number: [id number] Policy Number: NA Group Number: [id number] Health Plan Information #: 2 Payer: [facility] H61 Member Number: [id number] Policy Number: NA Group Number: NA
--- OUTSIDE RECORDS SUMMARY | 2024-09-20 15:17 | XMS_ITS | Continuity of Care Document ---
Author Organization [facility] Address [address] [place] [address]- Care Team Providers Care Nurse Practitioner Name Role Phone Diana Rabago MD Primary Care Physician [place] [facility] [place]17/24 - 09/16/24 [facility] [address] [place], [place] [address] Attending Physician: Denise Delacruz Encounter Type: Triage Allergies, Adverse Reactions, Alerts [...] vaccine, inactivated 5 08/11/11 Gi queta SARS-CoV-2(COVID-19)mRNA-LNP vac([id number]) 08/05/23 Recorded pneumococcal 20-valent conjugate vaccine 10/19/22 Given [id number] 12y+ bivalent booster vax 06/26/22 Recorded SARS-CoV-2 (COVID-19) mRNA BNT-162b2 vac 08/26/21 Recorded SARS-CoV-2 (COVID-19) mRNA BNT-162b2 vac 01/20/21 Recorded SARS-CoV-2 (COVID-19) mRNA BNT-162b2 vac 12/30/20 Recorded Influenza Virus Vaccine (oldterm) 07/19/19 Recorde d Influenza Virus Vaccine (oldterm) 6 08/09/08 Given tetanus/diphtheria/pertussis, acel(Tdap) 7 10/25/15 Given FluLaval (oldterm) 07/30/10 Given tetanus-diphtheria toxoids (Td) 11/16/05 Given Pneumococcal Vaccine (oldterm) 01/26/05 Given 1Result Comment: [facility] [phone] 2Result Comment: [08/24/2017] [facility] [phone] 3Result Comment: [07/11/2013] given w/o incidense...mh 4Admin [...] on: 08/24/17 Sex Sex Representation Female (finding) Laboratory * Event Display: ECHOCARDIOGRAPHER Pap Test Authored Date: [id number] Cardiology * Lian Winter: PERFORM Event Display: Cardiovascular Results Scanned Authored Date: [id number] * Lydia Flores: PERFORM Event Display: Cardiovascular Results Scanned Authored Date: [id number] * Marizol Saldana: PERFORM Event Display: Cardiovascular Results Scanned Authored Date: [id number] Radiology * Anuradha Coburn: PERFORM Event Display: Radiology Results Scanned Authored Date: [id number] * Ramez , Lhea: PERFORM Event Display: Radiology Results Scanned Authored Date: [id number] Patient Care team information Care Team Personnel Name: Juliette North RN Position: [facility] RN Member Role: Primary Care Nurse Name: Diana Rabago MD Position: [facility] Physician - Primary Care Member Role: PCP Address: [address] [place] [address] Adult and Pediatric [address] Telecom: Name: Annette Morales RN Position: [facility] RN Member Role: Primary Care Nurse Name: Ivett Arroyo RN Position: S RN Member Role: Primary Care Nurse Name: Roseanna Sweet RN Position: [facility] RN Member Role: Primary Care Nurse Name: Alejandra Ovalles RN Position: [facility] RN Member Role: Primary Care Nurse Name: Steve Ibarra Position: S RN Member Role: Primary Care Nurse Name: Delbert Shelton RN Position: [facility] RN Member Role: Primary Care Nurse Name: Jacqui Torre RN Position: [facility] OB RN Member Role: Primary Care Nurse Care Team Related Persons Name: LUCIAN GLEZ Name: LUCIAN GLEZ AND SHAQUILLE Name: CAROLYN CLINE Insurance Providers Guarantor name: EDWIN CLINE [facility] Plan Information #: 1 Payer: [facility] H61 Member Number: NA Policy Number: NA Group Number: NA
== END 2024-09-18 13:08 | disposition home or self-care (01) ==
PROVIDERS: PCP Internal Medicine; Visit Provider Surgery
DX: E66.812 Obesity, class 2 (principal); E66.01 Morbid (severe) obesity due to excess calories; Z68.39 Body mass index [BMI] 39.0-39.9, adult
CPT/HCPCS: 99204

== ENCOUNTER 2024-09-18 11:36 | Outpatient (REF) | payer OTHER, SELFPAY ==
--- NOTE | ~2024-09-18 | XR_ITS ---
EXAMINATION: XR CHEST CLINICAL INFORMATION: Body mass index [BMI] 35.0-35.9, adult Z68.35. COMPARISON: None available TECHNIQUE: 2 views of the chest were obtained. FINDINGS: No focal consolidation, pulmonary edema, or pleural effusion. Normal cardiomediastinal silhouette. XR/XR chest 2V IMPRESSION: No acute cardiopulmonary findings. Electronically signed by: Chapincito Hanna MD 10/26/2024 02:[address] [facility]
--- NOTE | 2024-09-18 14:02 | ECG_ITS ---
Test Reason : BMI Blood Pressure : / mmHG Vent. Rate : 068 BPM Atrial Rate : 068 BPM P-R Int : 168 ms QRS Dur : 072 ms QT Int : 396 ms P-R-T Axes : 048 -04 013 degrees QTc Int : 421 ms Normal sinus rhythm Low voltage QRS Cannot rule out Inferior infarct , age undetermined Abnormal ECG No previous ECGs available Referred By: Danial Cowan Electronically Signed By:SENTHIL BOSS MD
== END 2024-09-18 11:37 | disposition home or self-care (01) ==
LOC: HO.XRAY 11:36
PROVIDERS: PCP Internal Medicine; Visit Provider Surgery
DX: E66.812 Obesity, class 2 (principal); Z68.35 Body mass index [BMI] 35.0-35.9, adult; E66.01 Morbid (severe) obesity due to excess calories; E11.9 Type 2 diabetes mellitus without complications; E78.5 Hyperlipidemia, unspecified; I10 Essential (primary) hypertension
CPT/HCPCS: 71046; 93005

== ENCOUNTER → 2024-09-18 14:02 | Outpatient (BNV) | payer OTHER, SELFPAY | PROVIDERS: PCP Internal Medicine; Visit Provider Internal Medicine Cardiovascular Disease | DX: E66.01 Morbid (severe) obesity due to excess calories (principal); Z68.35 Body mass index [BMI] 35.0-35.9, adult | CPT/HCPCS: 93010 ==

== ENCOUNTER 2024-09-21 10:42 | Outpatient (REF) | payer OTHER, SELFPAY ==
[2024-09-21 11:26] LABS: MANUAL DIFF FLAG NO
[2024-09-21 11:44] LABS: Basophils Percent Auto 0.3 % (0-2); Eosinophils Absolute Auto 0.1 X10*3/uL (0.0-0.4); Eosinophils Percent Auto 1.6 % (0-4); Hematocrit 33.1 % (37.0-47.0); Hemoglobin 11.1 g/dl (12.0-16.0); Imm Gran Abs Auto 0.01 X10*3/uL (0.00-0.03); Imm Gran Pct Auto 0.2 % (0.0-0.4); Lymphocytes Absolute Auto 2.9 X10*3/uL (1.2-4.9); Lymphocytes Percent Auto 46.6 % (20-40); Mean Corpuscular HGB Conc 33.5 g/dl (31.0-35.0); Mean Corpuscular Hemoglobin 29.8 pg (27.0-33.0); Mean Corpuscular Volume 88.7 fL (80.0-98.0); Mean Platelet Volume 9.6 fL (9.4-12.3); Monocytes Absolute Auto 0.6 X10*3/uL (0.1-1.2); Monocytes Percent Auto 8.8 % (2-11); Neutrophils Absolute Auto 2.6 x10*3/uL (2.0-8.3); Neutrophils Percent Auto 42.5 % (45-73); Platelet Count 300 X10*3/uL (160-400); Red Blood Count 3.73 X10*6/uL (4.20-5.50); Red Cell Distribution Width 14.4 % (11.0-16.0); White Blood Count 6.2 X10*3/uL (4.8-10.8)
[2024-09-21 11:52] LABS: Estimated Average Glucose 128 mg/dL; Hemoglobin A1c % 6.1 % (<6.0); Total Hemoglobin (HGBA1C) 2865.1244 umol/L
[2024-09-21 12:29] LABS: Alanine Aminotransferase 34 U/L (0-31); Alkaline Phosphatase 116 U/L (39-117); Anion Gap 11 (12-20); Aspartate Amino Transferase 32 U/L (5-31); Bilirubin Total 0.3 mg/dL (0.0-1.0); Blood Urea Nitrogen 13 mg/dL (9-16); C Reactive Protein 1.18 mg/dL (< or = 0.50); Calcium 9.9 mg/dL (8.4-10.2); Carbon Dioxide 29 mmol/L (22-29); Chloride 105 mmol/L (96-108); Cholesterol 167 mg/dL (<200); Estimated Glomerular Filt Rate > 60; Glucose Random 98 mg/dL (60-115); HDL Cholesterol 50 mg/dL (>40); Iron 61 mcg/dL (30-160); LDL Cholesterol Calculated 98 mg/dL (<100); Percent Iron Saturation 20 % (15-50); Potassium 3.8 mmol/L (3.3-5.1); Sodium 141 mmol/L (135-145); Total Iron Binding Capacity 310 mcg/dL (228-428); Total Protein 7.4 g/dL (6.5-8.0); Triglycerides 95 mg/dL (<150); Unsaturated Iron Binding 249 ug/dL
[2024-09-21 12:35] LABS: Ferritin 66 ng/mL (10-250); TSH reflex Free T4 0.75 uIU/mL (0.32-4.0); Vitamin D 25-OH Total 39.9 ng/mL (>30)
[2024-09-21 12:46] LABS: Folate 14.5 ng/mL (> or = 4.0); Vitamin B12 660 pg/mL (200-900)
[2024-09-21 12:59] LABS: Insulin 13 uU/mL (2-29)
[2024-09-23 18:47] LABS: Zinc 72 mcg/dL (60-130)
[2024-09-26 02:53] LABS: Vitamin A 76 mcg/dL (38-98)
[2024-09-28 06:09] LABS: Vitamin B1 11 nmol/L (8-30)
== END 2024-09-21 10:43 | disposition home or self-care (01) ==
LOC: HO.LAB 10:42
PROVIDERS: PCP Internal Medicine; Visit Provider Surgery
DX: E66.812 Obesity, class 2 (principal); Z68.35 Body mass index [BMI] 35.0-35.9, adult; E66.01 Morbid (severe) obesity due to excess calories; E11.9 Type 2 diabetes mellitus without complications; E78.5 Hyperlipidemia, unspecified; I10 Essential (primary) hypertension; E66.9 Obesity, unspecified
CPT/HCPCS: 36415; 80053; 80061; 82306; 82607; 82728; 82746; 83036; 83525; 83540; 84425; 84443; 84590; 84630; 85025; 86140

== ENCOUNTER 2024-09-27 07:27 | Day surgery (SDC) | payer OTHER, SELFPAY ==
--- NOTE | 2024-09-25 13:35 | HO.ANESPROP2 ---
Documented by User: Amber Jiménez NP 09/25/24 13:36 HPI - Anesthesia Eval Consult details Narrative: 59yo F for Upper Endoscopy Anesthesia Pre-Procedure Meds Is the patient on any of the following meds?: GLP1/DPP4 PMFSH Active Problems Active Problems: All Active Problems Abnormal EKG (Acute) Non-insulin dependent type 2 diabetes mellitus (Acute) GERD (gastroesophageal reflux disease) (Acute) Herpes (Acute) Anxiety (Acute) DJD (degenerative joint disease) (Acute) HTN (hypertension) (Acute) Hyperlipidemia (Acute) BMI 35.0-35.9,adult (Acute) Obesity (Acute) Localized osteoarthritis of right knee (Acute) Numbness and tingling in right hand (Acute) Trigger thumb, left thumb (Acute) Trigger thumb, right thumb (Acute) Osteoarthritis of left knee (Acute) Past Medical History Medical History Non-insulin dependent type 2 diabetes mellitus GERD (gastroesophageal reflux disease) Herpes Anxiety DJD (degenerative joint disease) Hyperlipidemia BMI 35.0-35.9,adult Obesity Arthritis Pre-diabetes HTN (hypertension) Family History Family History Mother Cancer Hypertension Abdominal seizure Father Family history unknown Surgical History Surgical History History of back surgery Hx of tonsillectomy History of cholecystectomy History of appendectomy Social History Social History Alcohol intake: current Alcohol intake frequency: holidays/special occasions only Alcohol type: wine Patient Tobacco Use Status: Former Tobacco user Tobacco use type: Cigarette Use of substances other than those prescribed or required for medical reasons: Yes Substance Use Type: Marijuana Are you DNR?: No Advance Directives: No Advance Directives Information Provided: Yes Nutrition Risks: No Nutritional Risk Patient : No Current occupational status: employed 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 , 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 Meds Allergies Allergy/AdvReac Type Severity Reaction Status Date / Time acetaminophen [From Percocet] Allergy Mild Itching Verified 09/18/24 11:50 amoxicillin Allergy Mild Itching Verified 09/27/24 08:06 doxycycline Allergy Mild Itching Verified 09/27/24 08:06 oxycodone Allergy Mild Itching Verified 09/18/24 11:50 Erythromycin Allergy Mild Itching Uncoded 09/27/24 08:06 Home Medications ?Medication ?Instructions ?Recorded ?Confirmed ?Last Taken ?Type cholecalciferol (vitamin D3) 50 50 mcg PO DAILY 02/14/21 09/18/24 Unknown History mcg (2,000 unit) capsule fluticasone propionate 50 1 spray intranasal DAILY 02/14/21 09/18/24 Unknown History mcg/actuation nasal spray,suspension (Flonase Allergy Relief) hydrochlorothiazide 25 mg tablet 25 mg PO DAILY 02/14/21 09/18/24 Unknown History loratadine 10 mg tablet (Allergy 10 mg PO DAILY 02/14/21 09/18/24 Unknown History Relief (loratadine)) naproxen 375 mg tablet 375 mg PO BID PRN 02/14/21 09/18/24 Unknown History omeprazole 20 mg capsule,delayed 20 mg PO BID 02/14/21 09/18/24 Unknown History release valacyclovir 1 gram tablet 1,000 mg PO DAILY 02/14/21 09/18/24 Unknown History (Valtrex) atorvastatin 80 mg tablet 80 mg PO DAILY 07/15/22 09/18/24 Unknown History diclofenac sodium 75 mg 75 mg PO BID 07/15/22 09/18/24 Unknown History tablet,delayed release irbesartan 300 mg tablet 300 mg PO DAILY 07/15/22 09/18/24 Unknown History metformin 500 mg tablet 500 mg PO DAILY 11/17/23 09/18/24 Unknown History acetaminophen 500 mg capsule 500 mg PO Q6H PRN 09/01/24 09/18/24 Unknown History diazepam 2 mg tablet 2 mg PO BID PRN 09/01/24 09/18/24 Unknown History montelukast 10 mg tablet 10 mg PO QPM 09/01/24 09/18/24 Unknown History dulaglutide 1.5 mg/0.5 mL 1.5 mg subcut QWEEK 09/18/24 09/18/24 09/17/24 History subcutaneous pen injector (Trulicity) tramadol 50 mg tablet 50 mg PO DAILY 09/18/24 09/18/24 Unknown History Assessment and Plan Assessment Anesthesia Assessment: Chart Reviewed Documented by User: Lizbeth Ha MD 09/27/24 08:41 HPI - Anesthesia Eval Anesthesia Pre-Procedure Meds Is the patient on any of the following meds?: GLP1/DPP4 (Last dose of dulaglutide 09/17/24) [facility] Past Medical History Medical History Non-insulin dependent type 2 diabetes mellitus GERD (gastroesophageal reflux disease) Herpes Anxiety DJD (degenerative joint disease) Hyperlipidemia BMI 35.0-35.9,adult Obesity Arthritis Pre-diabetes HTN (hypertension) Family History Family History Mother Cancer Hypertension Abdominal seizure Father Family history unknown Family history of problems with anesthesia: No Surgical History Surgical History History of back surgery Hx of tonsillectomy History of cholecystectomy History of appendectomy History of Problems with Anesthesia: No Social History Social History Alcohol intake: current Alcohol intake frequency: holidays/special occasions only Alcohol type: wine Patient Tobacco Use Status: Former Tobacco user Tobacco use type: Cigarette Use of substances other than those prescribed or required for medical reasons: Yes Substance Use Type: Marijuana Are you DNR?: No Advance Directives: No Advance Directives Information Provided: Yes Nutrition Risks: No Nutritional Risk Patient : No Current occupational status: employed 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 , 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 Meds Allergies Allergy/AdvReac Type Severity Reaction Status Date / Time acetaminophen [From Percocet] Allergy Mild Itching Verified 09/18/24 11:50 amoxicillin Allergy Mild Itching Verified 09/27/24 08:06 doxycycline Allergy Mild Itching Verified 09/27/24 08:06 oxycodone Allergy Mild Itching Verified 09/18/24 11:50 Erythromycin Allergy Mild Itching Uncoded 09/27/24 08:06 Home Medications ?Medication ?Instructions ?Recorded ?Confirmed ?Last Taken ?Type cholecalciferol (vitamin D3) 50 50 mcg PO DAILY 02/14/21 09/18/24 Unknown History mcg (2,000 unit) capsule fluticasone propionate 50 1 spray intranasal DAILY 02/14/21 09/18/24 Unknown History mcg/actuation nasal spray,suspension (Flonase Allergy Relief) hydrochlorothiazide 25 mg tablet 25 mg PO DAILY 02/14/21 09/18/24 Unknown History loratadine 10 mg tablet (Allergy 10 mg PO DAILY 02/14/21 09/18/24 Unknown History Relief (loratadine)) naproxen 375 mg tablet 375 mg PO BID PRN 02/14/21 09/18/24 Unknown History omeprazole 20 mg capsule,delayed 20 mg PO BID 02/14/21 09/18/24 Unknown History release valacyclovir 1 gram tablet 1,000 mg PO DAILY 02/14/21 09/18/24 Unknown History (Valtrex) atorvastatin 80 mg tablet 80 mg PO DAILY 07/15/22 09/18/24 Unknown History diclofenac sodium 75 mg 75 mg PO BID 07/15/22 09/18/24 Unknown History tablet,delayed release irbesartan 300 mg tablet 300 mg PO DAILY 07/15/22 09/18/24 Unknown History metformin 500 mg tablet 500 mg PO DAILY 11/17/23 09/18/24 Unknown History acetaminophen 500 mg capsule 500 mg PO Q6H PRN 09/01/24 09/18/24 Unknown History diazepam 2 mg tablet 2 mg PO BID PRN 09/01/24 09/18/24 Unknown History montelukast 10 mg tablet 10 mg PO QPM 09/01/24 09/18/24 Unknown History dulaglutide 1.5 mg/0.5 mL 1.5 mg subcut QWEEK 09/18/24 09/18/24 09/17/24 History subcutaneous pen injector (Trulicity) tramadol 50 mg tablet 50 mg PO DAILY 09/18/24 09/18/24 Unknown History Exam Height,Weight and Vital Signs: Height 5 ft 7 in Weight 111.13 kg Vital Signs Temp Pulse Resp BP Pulse Ox O2 Del Method 09/27/24 08:20 96.8 F 83 16 112/70 99 Room Air Pertinent Lab Results Pertinent Lab Results: Lab Results 09/27/24 Range/Units 08:23 POC Glucose 125 H (60-115) mg/dL Airway Mallampati Class: II TM Dist: >3cm Neck ROM: Full Loose/Missing/Broken Teeth: Yes (Top front tooth chipped. Missing several teeth. Denies loose teeth) Heart: RRR Lungs: CTAB Assessment and Plan Assessment Anesthesia Assessment: Anesthesia Plan Discussed and Chart Reviewed Final Anesthetic Review Family History of Problems with Anesthesia: No History of Problems with Anesthesia: No NPO: Yes ASA Class: III Final Preanesthetic Review: No Changes in Pt Med Stat, Meds/Allgs Chart Reviewed, Consent Obtained/Reviewed and Anes Risks/Benef Reviewed Patient Risk: Intermediate Procedure Risk: Low Assessment/Block/Sedation in SS: Assess/Block/Sedation-SS Anesthetic Plan Anesthetic Plan: TIVA Disposition: Standard PACU
--- OUTSIDE RECORDS SUMMARY | 2024-09-27 07:30 | XMS_ITS | Continuity of Care Document ---
Author Organization [facility] Address [address] [place], [place] [address]rishi galaviz, [address] [place] [address]- Care Team Providers Care Police Communications Operator Name Role Phone Diana Rabago MD Primary Care Physician [phone] Encounter [facility] Date(s): 08/22/24 - 09/21/[address] [place], [place] [address] Encounter Type: Triage Allergies, Adverse Reactions, Alerts Substance Criticality Severity Reaction Reaction Severity Status doxycycline rash Active clindamycin Active erythromycin rash Active angiotensin converting enzym e inhibitors COUGH Active Percocet itchy Active oxyCODONE itchy Active amoxicillin rash Active Levaquin rash Active Bactrim rash Active [...] vaccine, inactivated 5 08/11/11 Gi queta SARS-CoV-2(COVID-19)mRNA-LNP vac([id number]) 08/05/23 Recorded pneumococcal 20-valent conjugate vaccine 10/19/22 Given [id number] 12y+ bivalent booster vax 06/26/22 Recorded SARS-CoV-2 (COVID-19) mRNA BNT-162b2 vac 08/26/21 Recorded SARS-CoV-2 (COVID-19) mRNA BNT-162b2 vac 01/20/21 Recorded SARS-CoV-2 (COVID-19) mRNA BNT-162b2 vac 12/30/20 Recorded Influenza Virus Vaccine (oldterm) 07/19/19 Recorde d Influenza Virus Vaccine (oldterm) 6 08/09/08 Given tetanus/diphtheria/pertussis, acel(Tdap) 7 10/25/15 Given FluLaval (oldterm) 07/30/10 Given tetanus-diphtheria toxoids (Td) 11/16/05 Given Pneumococcal Vaccine (oldterm) 01/26/05 Given 1Result Comment: [facility] [phone] 2Result Comment: [08/24/2017] [facility] [phone] 3Result Comment: [07/11/2013] given w/o incidense...mh 4Admin [...] Team Personnel Name: Juliette North RN Position: [facility] RN Member Role: Primary Care Nurse Name: Diana Rabago MD Position: [facility] Physician - Primary Care Member Role: PCP Address: [address] [place] [address] Adult and Pediatric Medicine [address] Telecom: Name: Annette Morales RN Position: [...] Care Nurse Name: Jacqui Torre RN Position: [facility] OB RN Member Role: Primary Care Nurse Care Team Related Persons Name: LUCIAN GLEZ Name: LUCIAN GLEZ AND SHAQUILLE Name: CAROLYN CLINE Insurance Providers Guarantor name: EDWIN CLINE Health Plan Information #: 1 Payer: [facility] H61 Member Number: NA Policy Number: NA Group Number: NA
[2024-09-27 07:59] VITALS: BMI 38.4
[2024-09-27 08:20] VITALS: BP 112/70; PULSE 83; RESP 16; TEMP 36; O2SAT 99
[2024-09-27 08:27] LABS: Glucose, Whole Blood 125 mg/dL (60-115)
--- NOTE | 2024-09-27 08:29 | MHC.SHP ---
Pre-Procedural Eval Section A - 24 Hr Update-Section A only Date of Service: 09/27/24 The patient is an INPATIENT: No The patient has been examined within 24 hours of the surgical procedure. The History & Physical has been completed within 30 days and I have reviewed it.: No Section B - Complete if H&P > 30 days Chief Complaint: Morbid (severe) obesity due to excess calories Details of Present Illness: GERD Relevant Family History (Specify if Yes): No Relevant Social History: None Present Medications: None Medical History: No relevant PMH History of Previous Operations: No relevant previous surgery Allergies: Allergies Allergy/AdvReac Type Severity Reaction Status Date / Time acetaminophen [From Percocet] Allergy Mild Itching Verified 09/18/24 11:50 amoxicillin Allergy Mild Itching Verified 09/27/24 08:06 doxycycline Allergy Mild Itching Verified 09/27/24 08:06 oxycodone Allergy Mild Itching Verified 09/18/24 11:50 Erythromycin Allergy Mild Itching Uncoded 09/27/24 08:06 Review of Systems Sugical H&P ROS: Negative: Constitution, Cardiovascular, Respiratory, Neurological, Psychiatric, Hem-Onc, Allergic/Immunologic, Gastrointestinal, Genitourinary, Musculoskeletal, Integumentary, Endocrine and Eyes/Ears/Nose/Throat Exam Surgical H&P Exam: Normal: HEENT, Normal: Heart, Normal: Lungs, Normal: Extremities, Normal: Abdomen, Normal: Skin and Normal: Neurological Plan Diagnosis/Plan: Unchanged (EGD to assess etiology of GERD. Risks of bleeding and perforation were discussed with the patient and she is in agreement with the plan.) I have reviewed the history and physical and performed a pertinent physical examination on my patient. No changes have occurred unless specified. Time Spent With Patient Time: Total time managing care of this patient today ____ minutes.
[2024-09-27] MEDS: Lactated Ringers 1,000 ML 80 ML IVCONT (08:33)
--- NOTE | 2024-09-27 08:34 | P.BOP_ITS ---
Brief Operative Note Date of Service: 09/27/24 Pre-op diagnosis: GERD Post-op diagnosis: same (& diaphragmatic hernia) Procedure: PROCEDURE DATE: 09/26/2024 PREOPERATIVE DIAGNOSIS: GERD POSTOPERATIVE DIAGNOSIS: ?Same as above. 1) Diaphragmatic hernia PROCEDURE: Smnobjdm-[id number]-[id number] with biopsies Surgeon: ?Ferdinand Cowan M.D.. Ph.D. Customer Relations Consultant: None ? Anesthesia: IV sedation Estimated blood loss: ?Minimal FINDINGS AND PROCEDURE: ? OPERATIVE INDICATIONS: ?The patient is a 59 year old female known to me who is interested in bariatric surgery. The patient has GERD. Based on this information I recommended an upper endoscopy to evaluate the patient's symptoms. Risks and complications of the surgery were discussed with the patient in advance particularly the possibility of perforation or bleeding that may require surgical intervention. The patient understood the risks and was in agreement with the plan. ? PROCEDURE: After informed consent was obtained by the patient, the patient was ?transferred to the Operating Room and was placed in the supine position.? After successful induction of IV sedation, a mouth block was inserted and the patient was placed in the left lateral decubitus position. An upper endoscopy was performed next, the oropharynx and esophagus appeared within the normal limits. There was a small 2-3cm diaphragmatic hernia. The z- line was smooth. Two biopsies were obtained from the distal esophagus 2-3 cm proximal to the GE junction and two additional biopsies from the GE junction. The stomach was entered and it appeared to be of normal size. There was no gastr itis. There was no stricture or ulcer. A biopsy was obtained from the gastric fundus and antrum. No significant bleeding was noted from any of the biopsy sites. Retroflexion of the scope confirmed the presence of a small diaphragmatic hernia. The scope was then advanced into the duodenum which appeared to be normal as well. At that point the duodenum ?and the stomach were decompressed and the scope was withdrawn from the patient's mouth. The patient extubated and was transferred in stable condition to the Recovery Room for further care. I was present and performed all steps of the procedure. There were no residents to assist with this case. Ferdinand Cowan M.D., Ph.D. Surgeon: Danial Cowan MD Anesthesia: local Was an Customer Relations Consultant used for this Procedure?: No Estimated blood loss (mL): 0 IV fluids (mL): 400 Urine output (mL): 0 (No Connelly to record output) Pathology: other (1) antrum x1, 2) fundus x1, 3) GE junction x2, 4) distal esophagus x2) Condition: stable Disposition: PACU
[2024-09-27 09:13] VITALS: BP 98/87; PULSE 89; RESP 16; TEMP 36.2; O2SAT 99
[2024-09-27 09:28] VITALS: BP 108/69; PULSE 73; RESP 16; TEMP 36.3; O2SAT 99
== END 2024-09-27 10:21 | disposition home or self-care (01) ==
PROVIDERS: PCP Internal Medicine; Visit Provider Surgery
PROC: 0DJ08ZZ Inspection of Upper Intestinal Tract, Via Natural or Artificial Opening Endoscopic (ICD-10-PCS; CPT 43235; principal; 2024-09-27 08:50)
DX: K21.9 Gastro-esophageal reflux disease without esophagitis (principal); K44.9 Diaphragmatic hernia without obstruction or gangrene; E66.01 Morbid (severe) obesity due to excess calories; Z68.35 Body mass index [BMI] 35.0-35.9, adult; E11.9 Type 2 diabetes mellitus without complications; I10 Essential (primary) hypertension; F41.9 Anxiety disorder, unspecified; M19.90 Unspecified osteoarthritis, unspecified site; B00.9 Herpesviral infection, unspecified; Z79.1 Long term (current) use of non-steroidal anti-inflammatories (NSAID); Z79.84 Long term (current) use of oral hypoglycemic drugs; Z79.85 Long-term (current) use of injectable non-insulin antidiabetic drugs; Z79.899 Other long term (current) drug therapy; Z88.1 Allergy status to other antibiotic agents; Z88.5 Allergy status to narcotic agent; Z90.49 Acquired absence of other specified parts of digestive tract; Z98.890 Other specified postprocedural states; Z87.891 Personal history of nicotine dependence
CPT/HCPCS: 43239; 82947; 88305; 88313; 88342; J1596; J2704

== ENCOUNTER → 2024-09-27 07:27 | Outpatient (BNV) | payer OTHER, SELFPAY | PROVIDERS: PCP Internal Medicine; Visit Provider Surgery | DX: K44.9 Diaphragmatic hernia without obstruction or gangrene (principal) | CPT/HCPCS: 43239 ==

== ENCOUNTER → 2024-09-29 11:53 | Outpatient (BNVA) | payer OTHER, SELFPAY | PROVIDERS: PCP Internal Medicine; Visit Provider Counselor Mental Health ==

== ENCOUNTER → 2024-09-29 11:53 | Outpatient (AMB) | payer OTHER, SELFPAY ==
--- OUTSIDE RECORDS SUMMARY | 2024-09-29 11:55 | XMS_ITS | Continuity of Care Document ---
Author Organization [facility] Address [address] [address]- Care Team Providers Care Die Stamping Press Operator Name Role Phone Diana Rabago MD Primary Care Physician Encounter [facility] Date(s): 08/29/24 - 09/28/24 [facility] [address] [place] [id number] Encounter Type: Triage Allergies, Adverse Reactions, Alerts Substance Criticality Severity Reaction Reaction Severity Status doxycycline rash Active clindamycin Active erythromycin rash Active amoxicillin rash Active angiotensin converting enzym e inhibitors COUGH Active Percocet itchy Active Levaquin rash Active Bactrim rash Active Peanuts Itch Active Seafood Itch Active oxyCODONE itchy Active Immunizations Given and Recorded Vaccine Date [...] influenza virus vaccine, inactivated 4 04/12/13 Gi qeuta influenza virus vaccine, inactivated 5 08/11/11 Gi queta SARS-CoV-2(COVID-19)mRNA-LNP vac(sxy614) 08/05/23 Recorded pneumococcal 20-valent conjugate vaccine 10/19/22 Given [id number] 12y+ bivalent booster vax 06/26/22 Recorded SARS-CoV-2 (COVID-19) mRNA BNT-162b2 vac 08/26/21 Recorded SARS-CoV-2 (COVID-19) mRNA BNT-162b2 vac 01/20/21 Recorded SARS-CoV-2 (COVID-19) mRNA BNT-162b2 vac 12/30/20 Recorded Influenza Virus Vaccine (oldterm) 07/19/19 Recorde d Influenza Virus Vaccine (oldterm) 6 08/09/08 Given tetanus/diphtheria/pertussis, acel(Tdap) 7 10/25/15 Given FluLaval (oldterm) 07/30/10 Given tetanus-diphtheria toxoids (Td) 11/16/05 Given Pneumococcal Vaccine (oldterm) 01/26/05 Given 1Result Comment: [facility] [phone] 2Result Comment: [08/24/2017] [facility] [phone] 3Result Comment: [07/11/2013] given w/o incidense...mh 4Admin [...] Team Personnel Name: Juliette North RN Position: [facility] RN Member Role: Primary Care Nurse Name: Diana Rabago MD Position: [facility] Physician - Primary Care Member Role: PCP Address: [address] [place] [address] Adult and Pediatric Medicine [address] Telecom: Name: Annette Morales RN Position: [...] Care Nurse Name: Jacqui Torre RN Position: [facility] OB RN Member Role: Primary Care Nurse Care Team Related Persons Name: LUCIAN GLEZ Name: LUCIAN GLEZ AND SHAQUILLE Name: CAROLYN CLINE Insurance Providers Guarantor name: EDWIN CLINE [facility] Information #: 1 Payer: [facility] H61 Member Number: NA Policy Number: NA Group Number: NA
--- OUTSIDE RECORDS SUMMARY | 2024-09-29 11:55 | XMS_ITS | Continuity of Care Document ---
Author Organization [facility] Address [address] [address]- Care Team Providers Care Orchestra Conductor Name Role Phone Diana Rabago MD Primary Care Physician [phone] En[place] [facility] Date(s): 08/29/24 - 09/28/24 [facility] [address] [place] [address] Encounter Type: Triage Allergies, Adverse Reactions, Alerts [...] vaccine, inactivated 5 08/11/11 Gi queta SARS-CoV-2(COVID-19)mRNA-LNP vac([id number]) 08/05/23 Recorded pneumococcal 20-valent conjugate vaccine 10/19/22 Given [id number] 12y+ bivalent booster vax 06/26/22 Recorded SARS-CoV-2 (COVID-19) mRNA BNT-162b2 vac 08/26/21 Recorded SARS-CoV-2 (COVID-19) mRNA BNT-162b2 vac 01/20/21 Recorded SARS-CoV-2 (COVID-19) mRNA BNT-162b2 vac 12/30/20 Recorded Influenza Virus Vaccine (oldterm) 07/19/19 Recorde d Influenza Virus Vaccine (oldterm) 6 08/09/08 Given tetanus/diphtheria/pertussis, acel(Tdap) 7 10/25/15 Given FluLaval (oldterm) 07/30/10 Given tetanus-diphtheria toxoids (Td) 11/16/05 Given Pneumococcal Vaccine (oldterm) 01/26/05 Given 1Result Comment: [facility] [id number] 2Result Comment: [08/24/2017] [facility] [phone] 3Result Comment: [07/11/2013] given w/o incidense...mh 4Admin [...] Team Personnel Name: Juliette North RN Position: [facility] RN Member Role: Primary Care Nurse Name: Diana Rabago MD Position: [facility] Physician - Primary Care Member Role: PCP Address: [address] [place] [address] Adult and Pediatric Medicine [address] Telecom: Name: Annette Morales RN Position: [...] Care Nurse Name: Jacqui Torre RN Position: [facility] OB RN Member Role: Primary Care Nurse Care Team Related Persons Name: LUCIAN GLEZ Name: LUCIAN GLEZ AND SHAQUILLE Name: CAROLYN CLINE Insurance Providers Guarantor name: EDWIN CLINE [facility] Information #: 1 Payer: [facility] H61 Member Number: NA Policy Number: NA Group Number: NA
--- OUTSIDE RECORDS SUMMARY | 2024-09-29 11:55 | XMS_ITS | Continuity of Care Document ---
Author Organization [facility] Address [address] [place] [address]- Care Team Providers Care Automobile Parker Name Role Phone Diana Rabago MD Primary Care Physician [place] [facility] [place] 08/29/24 - 09/28/24 [facility] [address] [place], [place] [address] Encounter Type: Triage Allergies, Adverse Reactions, [...] vaccine, inactivated 5 08/11/11 Gi queta SARS-CoV-2(COVID-19)mRNA-LNP vac([id number]) 08/05/23 Recorded pneumococcal 20-valent conjugate vaccine 10/19/22 Given [id number] 12y+ bivalent booster vax 06/26/22 Recorded SARS-CoV-2 (COVID-19) mRNA BNT-162b2 vac 08/26/21 Recorded SARS-CoV-2 (COVID-19) mRNA BNT-162b2 vac 01/20/21 Recorded SARS-CoV-2 (COVID-19) mRNA BNT-162b2 vac 12/30/20 Recorded Influenza Virus Vaccine (oldterm) 07/19/19 Recorde d Influenza Virus Vaccine (oldterm) 6 08/09/08 Given tetanus/diphtheria/pertussis, acel(Tdap) 7 10/25/15 Given FluLaval (oldterm) 07/30/10 Given tetanus-diphtheria toxoids (Td) 11/16/05 Given Pneumococcal Vaccine (oldterm) 01/26/05 Given 1Result Comment: [facility] [id number] 2Result Comment: [08/24/2017] [facility] [phone] 3Result Comment: [07/11/2013] given w/o incidense...mh 4Admin [...] Team Personnel Name: Juliette North RN Position: [facility] RN Member Role: Primary Care Nurse Name: Diana Rabago MD Position: [facility] Physician - Primary Care Member Role: PCP Address: [address] [place] [address] Adult and Pediatric Medicine [address] Telecom: Name: Annette Morales RN Position: [...] CLINE Insurance Providers Guarantor name: EDWIN CLINE [facility] Information #: 1 Payer: [facility] H61 Member Number: NA Policy Number: NA Group Number: NA
--- OUTSIDE RECORDS SUMMARY | 2024-09-29 11:55 | XMS_ITS | Continuity of Care Document ---
Author Organization 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 [address] [place], [place] [address] Encounter Diagnosis Diabetes(Discharge Diagnosis) - 09/20/24 Cough variant asthma(Discharge Diagnosis) - 09/20/24 MACARIO (generalized anxiety disorder)(Discharge Diagnosis) - 09/20/24 Morbid obesity with BMI of 40.0-44.9, adult(Discharge Diagnosis) - 09/20/24 Attending Physician: Diana Rabago MD Encounter Type: Office Visit Allergies, Adverse Reactions, Alerts Substance Criticality Severity Reaction Reaction Severity Status doxycycline rash Active clindamycin Active angiotensin converting enzym e inhibitors COUGH Active Percocet itchy Active oxyCODONE itchy Active erythromycin rash Active amoxicillin rash Active Levaquin rash Active [...] vaccine, inactivated 5 08/11/11 Gi queta SARS-CoV-2(COVID-19)mRNA-LNP vac([id number]) 08/05/23 Recorded pneumococcal 20-valent conjugate vaccine 10/19/22 Given [id number] 12y+ bivalent booster vax 06/26/22 Recorded SARS-CoV-2 [...] (oldterm) 01/26/05 Given 1Result Comment: [facility] [id number] 2Result Comment: [08/24/2017] [facility] [phone] 3Result Comment: [07/11/2013] given w/o incidense... 4Admin Note: per pt 5Admin Note: @ [...] Low back pain Confirmed Active 1HPV positive Diagnosis Diagnosis Type Effective Dates Health Status Cl inical Service Informant Diabetes Discharge Diagnosis 09/20/24 Cough variant asthma Discharge Diagnosis 09/20/24 MACARIO (generalized anxiety disorder) Discharge Diagnosis 09/20/24 Morbid obesity with BMI of 40.0-44.9, adult Discharge Diagnosis 09/20/24 Vital Signs Most recent to oldest [Reference Range]: 1 Height 170.18 cm (09/20/24 3:24 PM) Weight 114.6 kg (09/20/24 3:24 PM) Oxygen Saturation [94-100 %] 98 % (09/20/24 3:24 PM) Pulse Rate [55-90 bpm] 98 bpm *H* (09/20/24 3:24 PM) Body Mass Index [18.5-24.99 kg/m2] 39.57 kg/m2 *>HHI* (09/20/24 3:24 PM) Blood Pressure [90-138/55-84 mm Hg] 122/ 74mm Hg (09/20/24 3:24 PM) Blood pressure sites Arm, left (09/20/24 3:24 PM) Weight Obtained Via Standing scale (09/20/24 3:24 PM) Social History Social History Type Response Smoking Status Former smoker; Tobac co user in household: No; Other: 2-3 cigs a dayquit may 2017; entered on: 08/24/17 Sex Sex Representation Female (finding) Note * Lisbet Patterson: PERFORM Event Display: Patient Education/Instruction Authored Date: Ambulatory Adult Visit Summary [facility] [address] [place], [place] [id number] Name: EDWIN CLINE : 1965?? Visit: 09/20/2024 15:15?? Ambulatory Visit Instructions ?? Your Care Team Primary Care Provider Diana Rabago MD? This Visit Provider Diana Rabago MD Your Diagnosis Diabetes Cough variant asthma MACARIO (generalized anxiety disorder) Morbid obesity with BMI of 40.0-44.9, adult Vitals Signs Pulse Rate:??98 bpm??High Height: 170.18 cm Systolic Blood Pressure: 122 mm Hg Weight: 114.6 kg Diastolic Blood Pressure: 74 mm Hg Body Mass Index:??39.57 kg/m2??Critical Oxygen Saturation: 98 % Body surface area: 2.33 What to do next Instructions From Your Provider once Ozempic gets approved stop Trulicity to??Ozempic??0.5 mg once a week for 1 month; if minimal weight loss < 4 lb; call for dose increase?? Scheduled Follow-Up Appointments 2023 12:00 PM EST ?? With: Kwame Pate Where: [facility] Status: Pending Wednesday 12:45 PM EST ?? With: Anushka Christianson DO Where: [facility] [address] [place] [address] [place] [address]- Status: Pending Wednesday 2:00 PM EST ?? Where: [address] [place] [address]- Status: Pending Wednesday 11:40 AM EST ?? With: Ashley Christopher MD Where: [facility] [address] [place] [address]- Status: Pending Future Orders Basic Metabolic Panel - Routine, Once, 09/20/24 15:46:00 EST, Order for Today, [facility], Blood?? Hemoglobin A1C (Monitoring) - Routine, Once, 09/20/24 15:46:00 EST, Order for Today, [facility], Blood?? Medications The list below reflects the information in our records and provided by you today along with any changes made during this visit. Please continue your medications until treatment is completed or stopped by your provider. If this is different from the information you have or there are other questions,please contact the prescribing provider. What How Much When Why Instructions New semaglutide (Ozempic 2 mg/ 3 mL (0.25 mg or 0.5 mg dose) subcutaneous solution) 0.5 Milligram Subcutaneous Injection Every week Refills: 2 rotate injection sites ?? Pickup at [email or web address] #[email or web address] Unchanged Acetaminophen (acetaminophen 500 mg oral tablet) 2 tab(s) Oral 3 times a day Unchanged Atorvastatin (atorvastatin 80 mg oral tablet) 1 tab(s) Oral Daily Pickup at [email or web address] #[id number] Unchanged Budesonide-Formoterol (Symbicort 160mcg/ 4.5mcg Inhaler) 2 puff(s) Oral Twice a day Duration: 30 Days Unchanged Cholecalciferol (Vitamin D3 1000 intl units oral tablet) 1 tab(s) Oral Daily Unchanged Docusate (docusate sodium 100 mg oral capsule) 1 capsule Oral Twice a day Pickup at [email or web address] #28084 Unchanged Fluoxetine (FLUoxetine 40 mg oral capsule) 1 capsule Oral Daily Pickup at [email or web address] #48880 Unchanged Fluticasone Nasal (fluticasone 50 mcg/ inh nasal spray) 2 spray(s) Nasal Daily Severe obesity (BMI 35.0-39.9) with comorbidity Lumbar spondylosis Duration: 30 Days Unchanged Gabapentin (gabapentin 300 mg oral capsule) [...] tab(s) Oral Daily IN THE PM. ?? Pickup at [email or web address] #21654 Unchanged Naproxen (naproxen 500 mg oral tablet) 1 tab(s) Oral Twice a day Pickup at [facility] #[id number] Unchanged Omeprazole (omeprazole 20 mg oral enteric coated capsule) See instructions TAKE 1 CAPSULE BY MOUTH TWICE DAILY ?? Unchanged ValACYclovir (Valtrex 500 mg oral tablet) 2 tab(s) Oral Every 24 hours Duration: 30 Days Pharmacy Information [facility] #[id number]: [address], [place] [id number] [phone] ?? What How Much When Comments Stop Taking Diazepam (diazepam 2 mg oral tablet) Stop Taking Diazepam (diazepam 2 mg oral tablet) 1 tab(s) Oral 3 times a day Test Performed Below is a partial list of the tests performed during your Visit. You may have had other tests and procedures not included in this list. Please discuss all test results with your provider. Basic Metabolic Panel?-- Results Pending -- Hemoglobin A1C (Monitoring)?-- Results Pending -- Medications and Immunizations Administered Medications Given During [...] are strongly encouraged to quit. Please call [facility] at [phone] or [phone] ([phone]) or log in to [email or web address] for referrals to smoking cessation programs. ?? The National Suicide Prevention Hotline is available 03/05 if you or someone you know needs to find a reason to keep living. By calling 3-492-904-[facility] (5380) you'll be connected to a skilled, trained counselor at a crisis center in your area. [facility] You can view and manage your care through the patient portal or by using a health care angel of your choosing. [employer] is a website that allows you to securely view your medical information including your hospital discharge summary, office visit summaries, medications and follow-up visits. You can also request appointments, renew medications, and request access to your medical information using a health care angel of your choosing, or just ask a question. You can enroll at [email or web address] or register during your next office visit. [facility], in keeping with [facility] guidance, [...] primary care provider, you may find a [facility] provider by calling [facility] at [phone]. Patient Care team information Care Team Personnel Name: uJliette North RN Position: [facility] RN Member Role: Primary Care Nurse Name: Diana Rabago MD Position: [facility] Physician - Primary Care Member Role: PCP Address: [address] [place] [address] Adult and Pediatric Medicine [place], [place] [address] Telecom: Name: Annette Morales RN Position: [facility] RN Member Role: Primary Care Nurse Name: Ivett Arroyo RN Position: S RN Member Role: Primary Care Nurse Name: Roseanna Sweet RN Position: S RN Member Role: Primary Care Nurse Name: Alejandra Ovalles RN Position: [facility] RN Member Role: Primary Care Nurse Name: Steve Ibarra Position: S RN Member Role: Primary Care Nurse Name: Delbert Shelton RN Position: S RN Member Role: Primary Care Nurse Name: Jacqui Torre RN Position: [facility] OB RN Member Role: Primary Care Nurse Care Team Related Persons Name: LUCIAN GLEZ Name: LUCIAN GLEZ AND SHAQUILLE Name: CAROLYN CLINE Insurance Providers Guarantor name: EDWIN CLINE Health Plan Information #: 1 Payer: [facility] H61 Member Number: [id number] Policy Number: NA Group Number: [id number] Health Plan Information #: 2 Payer: [facility] H61 Member Number: [id number] Policy Number: NA Group Number: NA
--- NOTE | 2024-09-29 12:00 | A.OFFWM_ITS ---
Intake Intake Visit Reasons: OV BH Intake Allergies acetaminophen [From Percocet] Allergy (Mild, Verified 09/18/24 11:50) Itching amoxicillin Allergy (Mild, Verified 09/27/24 08:06) Itching doxycycline Allergy (Mild, Verified 09/27/24 08:06) Itching oxycodone Allergy (Mild, Verified 09/18/24 11:50) Itching Erythromycin Allergy (Mild, Uncoded 09/27/24 08:06) Itching PFSH Medical History Non-insulin dependent type 2 diabetes mellitus GERD (gastroesophageal reflux disease) Herpes Anxiety DJD (degenerative joint disease) Hyperlipidemia BMI 35.0-35.9,adult Obesity Arthritis Pre-diabetes HTN (hypertension) Surgical History History of back surgery Hx of tonsillectomy History of cholecystectomy History of appendectomy Family History Mother Cancer Hypertension Abdominal seizure Father Family history unknown Social History Alcohol intake: current Alcohol intake frequency: holidays/special occasions only Alcohol type: wine Patient Tobacco Use Status: Former Tobacco user Tobacco use type: Cigarette Substance Use Type: Marijuana Current occupational status: employed 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 Presenting Concerns Referral Source [facility] - Provider. Reason for referral Completion of behavioral health assessment as part of process for weight-loss surgery. Precipitating Event Obesity. 249Lbs as of 09/18/2024 Living Situation Current Living Situation Own At risk of losing current housing? No Satisfied with current living situation? Yes Comments PT lives with her and sister. she owns a duplex and another sister lives in the other side. Food/Weight/Diet Expectations of change Initial goal to lose 10% of her weight before surgery, which is about 25lbs. Ultimate weight goal: 225lbs before surgery Most recent weight 245Lbs PT is implementing the following: Current meal plan: Using the angel. Mostly doing modest plan. combination of shakes and 1 meal at day. Exercise plan: Walking. History/Relationship with food Example of meals before starting the program: Breakfast: Lunch: Dinner: Snacks: Drinks/Liquids: History/Relationship with weight In the last 10 years, the patient's Lowest weight was and highest History/Relationship with dieting WW, did it for 9 months. Lost 40Lbs. Atkins, did 2 phases. Lost couple Lbs. Intermittent fasting, recently. Was losing 3Lbs at week. Did it off and on for couple months. Portion Control diets. Social History Family history and relationship PT is over 30 years ago. No children. She has 9 siblings. 2 Mother . Never met father. She gets along well with family. Parental/Familial sludge control attendant obligations None. Developmental history and status None reported. Currently WNL. Social support . Community support Some co-worker, family. Worship/Spirituality Christianity. Legal Involvement and History Current or historical involvement with the legal system? None. Education Highest grade completed 12th. GED. Preferred learning style Auditory, Verbal, Written, Learn by doing and Visual Currently enrolled in educational program? No Educational Interests/Skills Healthcare. 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 She's scheduled to return in October. ) Wants help to find employment? No Meaningful activities Cooking, read. Financial Situation Describe current financial situation Comfortable and Occasional struggle Financial assistance? None Service Service? No Mental Health and Addiction Treatment Comments Alcohol:1-2 times every other week. Before back surgery she was drinking daily. 1-2 shots of roman and 1 can of beer. Cigarettes/Tobacco: None currently. Was a smoker. Cannabis/Edibles: Both. Edibles 1 at night daily, smokes 1 joint at week. Current/Past addictive behavior concerns? No (Does scratch tickets daily.) Psychiatric history PT denies ever been counseling, or any type of MH treatment, also never in crisis or inpatient for mental health. There is no history and/or current concern about SI/SA and self-harm or other harm. Questionnaires PHQ-9 Over the last 2 weeks, how often have you been bothered by any of the following problems? 1. Little interest or pleasure in doing things: not at all 2. Feeling down, depressed, or hopeless: several days 3. Trouble falling or staying asleep, or sleeping too much: several days 4. Feeling tired or having little energy: several days 5. Poor appetite or overeating: several days 6. Feeling bad about yourself - or that you are a failure or have let yourself or your family down: not at all 7. Trouble concentrating on things, such as reading the newspaper or watching television: not at all 8. Moving or speaking so slowly that other people could have noticed. Or the opposite - being so fidgety or restless that you have been moving around a lot more than usual: several days 9. Thoughts that you would be better off or of hurting yourself in some way: not at all Total score: 5 Depression Screening Interpretation: Positive Depression Screening Done: Yes Source: Developed by Drs. Wang Prado, Shivani Alvarez, Giacomo Ladd and colleagues, with an educational evelyn from [email or web address]. Binge Eating Scale Group 1 A. I don't feel self-conscious about my wt. or body size when I'm with others. B. I feel concerned about how I look to others, but it normally does not make me fell disappointed with myself C. I do get self-conscious about my appearance and wt. which makes me feel disappointed in myself. D. I feel very self-conscious about my wt. and frequently I feel intense shame and disgust for myself. I try to avoid social contacts because of my self- consciousness. Response Group 1: A Group 2 A. I don't have any difficulty eating slowly in the proper manner. B. Although I seem to gobble down foods, I don't end up feeling stuffed because of eating to much. C. At times, I tend to eat quickly and then, I feel uncomfortably full afterwards. D. I have the habit of bolting down my food, without really chewing it. When this happens I usually feel uncomfortably stuffed because I've eaten to much. Response Group 2: A Group 3 A. I feel capable to control my eating urges when I want to. B. I feel like I have failed to control my eating more than the average person. C. I feel utterly helpless when it comes to feeling in control of my eating urges. D. Because I feel so helpless about controlling my eating I have become very desperate about trying to get control. Response Group 3: B Group 4 A. I don't have the habit of eating when I'm bored. B. I sometimes eat when I'm bored, but often I'm able to get busy and get my mind off food. C. I have a regular habit of eating when I'm bored, but occasionally, I can use some other activity to get my mind off eating. D. I have a strong habit of eating when I'm bored. Nothing seems to help me breath the habit. Response Group 4: A Group 5 A. I'm usually physically hungry when I eat something. B. Occasionally, I eat something on impulse even though I really am not hungry. C. I have the regular habit of eating foods, that I might not really enjoy, to satisfy a hungry feeling even though physically, I don't need the food. D. Although I'm not physically hungry, I get a hungry feeling in my mouth that only seems to be satisfied when I eat a food, like sandwich, that fills my mouth. Sometimes, when I eat the food to satisfy my mouth hunger, I then spit the food out so I won't gain weight. Response Group 5: A Group 6 A. I don't feel any guilt or self-hate after I overeat. B. After I overeat, occasionally I feel guilt or self-hate. C. Almost all the time I experience strong guilt or self-hate after I overeat. Response Group 6: A Group 7 A. I don't lose total control of my eating when dieting even after periods when I overeat. B. Sometimes when I eat a forbidden food on a diet, I feel like I blew it and eat even more. C. Frequently, I have the habit of saying to myself, I've blown it now, why not go all the way, when I overeat on a diet. When that happens I eat more. D. I have a regular habit of starting a strict diets for myself but I break the diets by going on an eating binge. My life seems to be either a feast or famine. Response Group 7: A Group 8 A. I rarely eat so much food that I feel uncomfortably stuffed afterwards. B. Usually about once a month, I each such a quantity of food, I end up feeling very stuffed. C. I have regular periods during the month when I eat large amounts of food, either at mealtime or at snacks. D. I eat so much food that I regularly feel quite uncomfortable after eating and sometimes a bit nauseous. Response Group 8: B Group 9 A. My level of calorie intake does not go up very high or go down very low on a regular basis. B. Sometimes after I overeat, I will try to reduce my caloric intake to almost nothing to compensate for the excess calories I've eaten. C. I have a regular habit of overeating during the night. It seems that my routine is not to be hungry in the morning but overeat in the evening. D. In my adult years, I have had week-long periods where I practically starve myself. This follows periods when I overeat. It seems I live a life of either feast or famine. Response Group 9: B Group 10 A. I usually am able to stop eating when I want to. I know when enough is enough. B. Every so often, I experience a compulsion to eat which I can't seem to control. C. Frequently, I experience strong urges to eat which I seem unable to control, but at other times I can control my eating urges. D. I feel incapable of controlling urges to eat. I have a fear of not being able to stop eating voluntarily. Response Group 10: C Group 11 A. I don't have any problem stopping eating when I feel full. B. I usually can stop eating when I feel full but occasionally overeat leaving me feeling uncomfortably stuffed. C. I have a problem stopping eating once I start and usually I feel uncomfortably stuffed after I eat a meal. D. Because I have a problem not being able to stop eating when I want, I sometimes have to induce vomiting to relieve my stuffed feeling. Response Group 11: B Group 12 A. I seem to eat just as much when I'm with others, Family social gatherings as when I'm by myself. B. Sometimes, when I'm with other persons, I don't eat as much as I want to eat because I'm self-conscious about my eating. C. Frequently, I eat only a small amount of food when others are present, because I'm very embarrassed about my eating. D. I feel so ashamed about overeating that I pick times to overeat when I know no one will see me. I feel like a closet eater. Response Group 12: A Group 13 A. I eat three meals a day with only an occasional between meal snack. B. I eat 3 meals a day, but I also normally snack between meals. C. When I am snacking heavily, I get in the habit of skipping regular meals. D. There are regular periods when I seem to be continually eating, with no planned meals. Response Group 13: A Group 14 A. I don't think much about trying to control unwanted eating urges. B. At least some of the time, I feel my thoughts are pre-occupied with trying to control my eating urges. C. I feel that frequently I spend much time thinking about how much I ate or about trying not to eat anymore. D. It seems to me that most of my waking hours are pre-occupied by thoughts about eating or not eating. I feel like I'm constantly struggling not to eat. Response Group 14: C Group 15 A. I don't think about food a great deal. B. I have strong craving for food but they last only for brief periods of time. C. I have days when I can't seem to think about anything else but food. D. Most of my days seem to be pre-occupied with thoughts about food. I feel like I live to eat. Response Group 15: B Group 16 A. I usually know whether or not I'm physically hungry. I take the right portion of food to satisfy me. B. Occasionally, I feel uncertain about knowing whether or not I'm physically hungry. A these times it's hard to know how much food I should take to satisfy me. C. Even though I might know how many calories I should eat, I don't have any idea what is a normal amount of food for me. Response Group 16: A Binge Eating Score: 9 Score less than 17 Minimal Risk Score between 18-26 Moderate Risk Score between 27-46 High Risk Assessment & Plan Assessment & Plan (1) Adjustment disorder, unspecified: Code(s): F43.20 - Adjustment disorder, unspecified Plan PT not cleared yet, she will be seen again to continue assessment. PT informed she needs to work on quitting cigarettes and cannabis before surgery. [facility] C[facility] Level of Care Code New Pt Psy Diag Eval (15826) Patient Type New Diagnoses Adjustment disorder, unspecified F43.20 Time Spent (min) 60
== END ==
PROVIDERS: PCP Internal Medicine; Visit Provider Counselor Mental Health
DX: F43.20 Adjustment disorder, unspecified (principal)
CPT/HCPCS: 90791

== ENCOUNTER 2024-10-02 14:20 | Outpatient (AMB) | payer OTHER, SELFPAY ==
--- NOTE | 2024-10-02 14:29 | A.OFFVIS_ITS ---
Intake Visit Reasons: Inj-Right Knee Durolane Intake Note: Lisa is a 59 year old female who presents today for a Right Knee Durolane injection. Allergies acetaminophen [From Percocet] Allergy (Mild, Verified 09/18/24 11:50) Itching amoxicillin Allergy (Mild, Verified 09/27/24 08:06) Itching doxycycline Allergy (Mild, Verified 09/27/24 08:06) Itching oxycodone Allergy (Mild, Verified 09/18/24 11:50) Itching Erythromycin Allergy (Mild, Uncoded 09/27/24 08:06) Itching HPI HPI Inj-Right Knee Durolane: Details: Lisa is a 59 year old female who presents today for a Right Knee Durolane injection. [facility] Medical History Non-insulin dependent type 2 diabetes mellitus GERD (gastroesophageal reflux disease) Herpes Anxiety DJD (degenerative joint disease) Hyperlipidemia BMI 35.0-35.9,adult Obesity Arthritis Pre-diabetes HTN (hypertension) Surgical History History of back surgery Hx of tonsillectomy History of cholecystectomy History of appendectomy Family History Mother Cancer Hypertension Abdominal seizure Father Family history unknown Social History Alcohol intake: current Alcohol intake frequency: holidays/special occasions only Alcohol type: wine Patient Tobacco Use Status: Former Tobacco user Tobacco use type: Cigarette Substance Use Type: Marijuana Current occupational status: employed 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 Site was prepped using aseptic technique. Patient tolerated the procedure well. Shoulders, Hips, Knees, Knee Large Joint Injection [id number]: Right Knee Coding Procedure code (CPT) selection complete Assessment & Plan Assessment & Plan (1) Localized osteoarthritis of right knee: Code(s): M17.11 - Unilateral primary osteoarthritis, right knee Category: Medical Plan: Injected right knee Durolane. Coding Level of Care Code Est Pt Level 2 (02686) Diagnoses Localized osteoarthritis of right knee M17.11 CPT Codes Shoulders, Hips, Knees, - Knee Large Joint Injection : Right Knee ([id number])
== END 2024-10-02 15:17 | disposition home or self-care (01) ==
PROVIDERS: PCP Internal Medicine; Visit Provider Orthopaedic Surgery
DX: M17.11 Unilateral primary osteoarthritis, right knee (principal)
CPT/HCPCS: 20610

== ENCOUNTER → 2024-10-02 14:20 | Outpatient (BNVA) | payer OTHER, SELFPAY | PROVIDERS: PCP Internal Medicine; Visit Provider Orthopaedic Surgery | DX: M17.11 Unilateral primary osteoarthritis, right knee (principal) | CPT/HCPCS: 20610; J7318 ==

== ENCOUNTER 2024-10-03 09:13 | Outpatient (REF) | payer OTHER, SELFPAY ==
--- OUTSIDE RECORDS SUMMARY | 2024-10-03 09:17 | XMS_ITS | Continuity of Care Document ---
Author Organization [facility] y Address [address] [place] [address] [address], [address] [place] [address]- Care Team Providers Care [employer] Certified Network Professional Name Role Phone Diana Rabago MD Primary [id number] Date[facility]s): [facility]/25/24 - 10/02/24 [facility] [address] [place] [address] Drive [address] [place], [place] [address] Attending Physician: Anushka Christianson DO Referring Physician: [...] vaccine, inactivated 5 08/11/11 Gi queta SARS-CoV-2(COVID-19)mRNA-LNP vac([id number]) 08/05/23 Recorded pneumococcal 20-valent conjugate vaccine 10/19/22 Given [id number] 12y+ bivalent booster vax 06/26/22 Recorded SARS-CoV-2 (COVID-19) mRNA BNT-162b2 vac 08/26/21 Recorded SARS-CoV-2 (COVID-19) mRNA BNT-162b2 vac 01/20/21 Recorded SARS-CoV-2 (COVID-19) mRNA BNT-162b2 vac 12/30/20 Recorded Influenza Virus Vaccine (oldterm) 07/19/19 Recorde d Influenza Virus Vaccine (oldterm) 6 08/09/08 Given tetanus/diphtheria/pertussis, acel(Tdap) 7 10/25/15 Given FluLaval (oldterm) 07/30/10 Given tetanus-diphtheria toxoids (Td) 11/16/05 Given Pneumococcal Vaccine (oldterm) 01/26/05 Given 1Result Comment: [facility] [id number] 2Result Comment: [08/24/2017] [facility] [id number] 3Result Comment: [07/11/2013] given w/o incidense...mh 4Admin [...] oldest [Reference Range]: 1 Height 170.18 cm (09/25/24 12:34 PM) Weight 114 kg (09/25/24 12:34 PM) Body Mass Index [18.5-24.99 kg/m2] 39.36 kg/m2 *>HHI* (09/25/24 12:34 PM) Social History Social History Type Response Smoking Status Former smoker; Tobac co user in household: No; Other: 2-3 cigs a dayquit may 2017; entered on: 08/24/17 Sex Sex Representation Female (finding) Patient Care team information Care Team Personnel Name: Juliette North RN Position: [facility] RN Member Role: Primary Care Nurse Name: Diana Rabago MD Position: [facility] Physician - Primary Care Member Role: PCP Address: [address] [place] [address] Adult and Pediatric [address] Telecom: Name: Annette Morales RN Position: [facility] RN Member Role: Primary Care Nurse [...] Care Nurse Name: Jacqui Torre RN Position: [facility] OB RN Member Role: Primary Care Nurse Care Team Related Persons Name: LUCIAN GLEZ Name: LUCIAN GLEZ AND SHAQUILLE Name: CAROLYN CLINE Insurance Providers Guarantor name: EDWIN CLINE [facility] Information #: 1 Payer: [facility] Member Number: 1922 Policy Number: DIANA Group Number: [id number] Health Plan Information #: 2 Payer: [id number] Member Number: [id number] Policy Number: DIANA Group Number: NA
== END 2024-10-03 09:14 | disposition home or self-care (01) ==
LOC: HO.US 09:13
PROVIDERS: PCP Internal Medicine; Visit Provider Surgery
DX: E66.812 Obesity, class 2 (principal); E66.01 Morbid (severe) obesity due to excess calories; Z68.35 Body mass index [BMI] 35.0-35.9, adult; E11.9 Type 2 diabetes mellitus without complications; E78.5 Hyperlipidemia, unspecified; I10 Essential (primary) hypertension
CPT/HCPCS: 76700; 76981

== ENCOUNTER → 2024-10-03 09:18 | Outpatient (BNV) | payer OTHER, SELFPAY | PROVIDERS: PCP Internal Medicine; Visit Provider Radiology Diagnostic Radiology | DX: R16.0 Hepatomegaly, not elsewhere classified (principal); K76.0 Fatty (change of) liver, not elsewhere classified | CPT/HCPCS: 76700; 76981 ==

== ENCOUNTER → 2024-10-10 07:41 | Outpatient (REF) | payer OTHER, SELFPAY ==
--- NOTE | 2024-10-10 07:46 | CA_ITS ---
Transthoracic Echocardiogram Patient (Last, First, Middle): Lisa Villatoro, Gender: Female Date of : 1965 Age: 59 Procedure Date: 10/10/2024 Procedure Type: Transthoracic Echocardiogram Location: OP Height: 170.18 cm Weight: 109.32 kg BSA: 2.19 m2 Heart Rate: bpm BP: 118 / 70 mmHg Hide Selector: TO Referring MD: Danial Cowan MD Accounts Specialist: Isidro Moon MD Symptoms: R94.31 - Abnormal electrocardiogram [ECG] [EKG] Study Quality: Adequate w contrast ECG Rhythm: Sinus Conclusions: - Mildly enlarged left atrium otherwise normal study Findings Procedure Information Contrast agent, definity, is being given per protocol without apparent complications. Left Ventricle Normal left ventricular size, thickness, and systolic function. The visually estimated ejection fraction is between 60-65%. Spectral Doppler is indicative of a normal filling pattern. Right Ventricle Normal right ventricular cavity size. Atria The left atrium is mildly dilated. Interatrial shunt cannot be excluded. The right atrium is normal in size. Aortic Valve Normal aortic valve structure and function. There is no aortic valve stenosis. There is no aortic valve regurgitation. Mitral Valve Normal mitral valve structure and function. There is trace mitral valve regurgitation. There is no mitral valve stenosis. Pulmonic Valve The pulmonic valve was not well visualized. Tricuspid Valve Likely normal tricuspid valve structure and function. There is trace tricuspid valve regurgitation. The right ventricular systolic pressure is normal. The right ventricular systolic pressure is 26 mmHg. Normal right atrial pressure. There is no evidence of pulmonary hypertension. Great Vessels All visible segments of the aorta are normal in size. The pulmonary artery was not well visualized. There is no dilatation of the ascending aorta measuring 2.70 cm. Venous The inferior vena cava is normal in size and collapses greater than 50% with inspiration. Pericardium/Pleural There is no evidence of pericardial effusion. Prior Study Comparison No prior study available for comparison. Measurements 2D Linear Measurements IVSd: 0.84 0.6-0.9/0.6-1.0 cm LVIDd: 4.56 3.9-5.3/4.2-5.9 cm LVIDd Index: 2.08 2.4-3.2/2.2-3.1 cm/m2 LVIDs: 3.16 2.0-3.6 cm LVPWd: 0.74 0.7-1.1 cm LA Diam: 3.60 2.7-3.8/3.0-4.0 cm LAIDs Index: 1.64 1.5-2.3 cm/m2 LV Mass: 142.12 67-162/88-224 g LV Mass Index: 64.90 43-95/49-115 g/m2 LVOT Diam: 2.10 3.0+(-)1.3 cm 2D Systolic Function EF 4C: 68.00 >55% EF 2C: 60.00 >55% EF BiP: 64.30 >55% Mitral Valve MV Pk E: 0.63 MV PK A: 0.49 MV Decel Time: 150.00 E/A: 1.30 E'Lateral: 6.96 E'Medial: 5.87 E/E' Med: 10.70 E/E' Lat: 9.10 PHT: 44.00 MVA PHT: 5.00 Decel Marin: 4.20 Aortic Valve AoV Pk Surjit: 1.42 AoV Mn Surjit: 0.91 AoV VTI: 0.29 AoV Pk Grad: 8.00 Aov Mn Grad: 4.00 SILAS Cont.VTI: 2.56 LVOT LVOT Pk Surjit: 1.04 LVOT Mn Surjit: 0.63 LVOT VTI: 0.22 LVOT Pk Grad: 4.00 LVOT Mn Grad: 2.00 LVOT Diam: 2.10 LVOT Area: 3.46 Diastolic Function MV Pk E: 0.63 MV Pk A: 0.49 E/A: 1.30 E'Medial: 5.87 E/E' Med: 10.70 E' Laterial: 6.96 E/E' Lat: 9.10 Right Ventricle TAPSE (mm): 21.70 TVS' Surjit: 10.20 Tricuspid Valve TR Pk Surjit: 2.40 TR Pk Grad: 23.00 RA Press: 3.00 RVSP: 26.00 Great Vessels Aorta Sinus of Valsalva: 3.13 2.0-3.5 cm Ao Asc: 2.70 2.1-3.4 cm Updated in Other Vendor System with Status of Final Isidro Moon MD electronically signed on 10/10/2024 12:29:13 PM with status of Final
== END ==
LOC: HO.CARD 07:41
PROVIDERS: PCP Internal Medicine; Visit Provider Surgery
DX: R94.31 Abnormal electrocardiogram [ECG] [EKG] (principal)
CPT/HCPCS: 93306; Q9957

== ENCOUNTER → 2024-10-10 07:46 | Outpatient (BNV) | payer OTHER, SELFPAY | PROVIDERS: PCP Internal Medicine; Visit Provider Internal Medicine Cardiovascular Disease | DX: I51.7 Cardiomegaly (principal); R94.31 Abnormal electrocardiogram [ECG] [EKG] | CPT/HCPCS: 93306 ==

== ENCOUNTER 2024-11-01 09:17 | Outpatient (AMB) | payer OTHER, SELFPAY ==
--- NOTE | 2024-11-01 09:05 | A.OFFWM_ITS ---
Intake Intake Visit Reasons: VIDEO Intake Part 2 Allergies acetaminophen [From Percocet] Allergy (Mild, Verified 09/18/24 11:50) Itching amoxicillin Allergy (Mild, Verified 09/27/24 08:06) Itching doxycycline Allergy (Mild, Verified 09/27/24 08:06) Itching oxycodone Allergy (Mild, Verified 09/18/24 11:50) Itching Erythromycin Allergy (Mild, Uncoded 09/27/24 08:06) Itching PFSH Medical History Non-insulin dependent type 2 diabetes mellitus GERD (gastroesophageal reflux disease) Herpes Anxiety DJD (degenerative joint disease) Hyperlipidemia BMI 35.0-35.9,adult Obesity Arthritis Pre-diabetes HTN (hypertension) Surgical History History of back surgery Hx of tonsillectomy History of cholecystectomy History of appendectomy Family History Mother Cancer Hypertension Abdominal seizure Father Family history unknown Social History Alcohol intake: current Alcohol intake frequency: holidays/special occasions only Alcohol type: wine Patient Tobacco Use Status: Former Tobacco user Tobacco use type: Cigarette Substance Use Type: Marijuana Current occupational status: employed 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 PT reports that her motivation for weight-loss surgery is to improve her quality of life and address her back issues. She notes that she has been obese for most of her life, but it has not been a major concern for her, despite some associated medical issues. PT indicates that she cannot pursue weight-loss surgery in the immediate future due to a recent back surgery and limited paid time off (PTO). She plans to proceed with surgery after February 2025. The patient denies any history of mental health treatment or previous hospitalizations or crises related to behavioral health. She also denies any recent or past concerns regarding suicidal ideation, self-harm, or harm to others. PT reports that she was granted a medical cannabis card a few years ago to manage arthritis-related pain. She also disclosed that she used to drink alcohol almost daily before her back surgery last year. However, she has recognized the benefits of alcohol abstinence and has no intention of drinking in the future. Regarding cannabis use, she reports limiting consumption due to increased hunger when smoking. There is no evidence of significant stress or emotional eating, and the Binge Eating Scale (BES) scores suggest a low risk for binge eating behavior. Additionally, the PHQ-9 scores show no active symptoms or concerns related to depression. The mental status exam is within normal limits, indicating that the patient?s functioning is not impaired. At this time, the patient is cleared from a behavioral health standpoint and will be seen for follow-up 1-2 weeks post-operatively for ongoing support. Presenting Concerns Referral Source [facility] - Provider. Reason for referral Completion of behavioral health assessment as part of process for weight-loss surgery. Precipitating Event Obesity. 249Lbs as of 09/18/2024 Living Situation Current Living Situation Own At risk of losing current housing? No Satisfied with current living situation? Yes Comments PT lives with her and sister. she owns a duplex and another sister lives in the other side. Food/Weight/Diet Expectations of change The initial goal to lose 10% of her weight before surgery, which is about 25lbs. Ultimate weight goal: 225lbs before surgery. Initial weight was 249Lbs as of 09/18/2024 Current weight 10/30/2024: 236Lbs PT is implementing the following: Current meal plan: Using the angel. Mostly doing modest plans. combination of shakes and 1 meal a day. Exercise plan: Walking. History/Relationship with food PT reports she likes to cook, has recipe books, and enjoys food. However, she has noticed when she smokes cannabis, she gets hungrier. Also in the past, she used to eat very fast. And was eating cereal at night. PT reports she doesn't use food to reward herself or uplift her mood. However, at times, when upset, she tends to eat more. At work, she does some cooking activities such as preparing food or baking things like cookies. Example of meals before starting the program: Breakfast: coffee and a banana - if at home would be eggs and toast. Lunch: soup, sandwich, or leftovers. Dinner: rice, beans, chicken, veggies. Depends on her mood. She likes fresh foods. Night eating: sweets like reeses, snickers, popsicles. Drinks/Liquids: water, favor water, coffee or tea. History/Relationship with weight PT reports she has always been overweight. in 7th grade she was 170Lbs. In HS she become less active. PT reports she doesn't remember the last time she was under 200 lbs. In the last 10 years, the patient's Lowest weight was 230Lbs and highest 253Lbs History/Relationship with dieting WW, did it for 9 months. Lost 40Lbs. Atkins, did 2 phases. Lost couple Lbs. Intermittent fasting, recently. Was losing 3Lbs at week. Did it off and on for couple months. Portion Control diets. Binge Eating Do you frequently eat large amounts of food in short periods of time, not feeling physically hungry? No Do you feel out of control when you eat a large amount of food in a short period of time? No Do you eat large amounts of food rapidly and typically alone? No Night Eating Do you wake up at least once during the night to eat? No If you wake up in the night, do you find that it is necessary to eat something in order to fall back asleep? No Do you have little or no appetite in the morning and feel very hungry in the evening, often overeating between dinner and when you go to bed? Yes Social History Family history and relationship PT is over 30 years ago. No children. She has 9 siblings. 2 Mother . Never met father. She gets along well with family. Parental/Familial ophthalmology surgical technician obligations None. Developmental history and status None reported. Currently WNL. Social support . Community support Some co-worker, family. Christian/Spirituality Tenriism. Cultural/Ethnic information . Legal Involvement and History Current or historical involvement with the legal system? None. Education Highest grade completed 12th. GED. Preferred learning style Auditory, Verbal, Written, Learn by doing and Visual Currently enrolled in educational program? No Educational Interests/Skills Healthcare. 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 She's scheduled to return by the end of October. ) Wants help to find employment? No Meaningful activities Cooking, read. Financial Situation Describe current financial situation Comfortable and Occasional struggle Financial assistance? None Service Service? No Mental Health and Addiction Treatment Comments Alcohol:1-2 times every other week. Before back surgery she was drinking daily. 1-2 shots of roman and 1 can of beer. Cigarettes/Tobacco: None currently. Was a smoker. Cannabis/Edibles: Both. Edibles 1 at night daily, smokes 1 joint at week. Current/Past addictive behavior concerns? No (Does scratch tickets daily.) Psychiatric history PT denies ever been counseling, or any type of MH treatment, also never in crisis or inpatient for mental health. There is no history and/or current concern about SI/SA and self-harm or other harm. Medical and Physical Health Summary Additional Medical History not covered in history None additional. Sexual History concerns None reported. Physical exam in the last year? Yes (PT follows up with her PCP every 4 months. ) Pain Screening Current pain? Yes Pain in the last few months? Yes Comments PT has back issues, she had a surgery last year and has some restrictions still. She is also still out of work. Unable to lift more than 10Lbs. Medications Is the patient compliant with medications? Yes Does the patient have Nix Guardian in place? Not applicable Does the patient use complimentary health approaches? Yes (PT has the medical card for cannabis due to arthritis.) Trauma/Abuse History History of trauma? No Questionnaires PHQ-9 Over the last 2 weeks, how often have you been bothered by any of the following problems? 1. Little interest or pleasure in doing things: several days 2. Feeling down, depressed, or hopeless: several days (due to pain.) 3. Trouble falling or staying asleep, or sleeping too much: several days (Having a disorganized sleep schedule due to being off of work and pain.) 4. Feeling tired or having little energy: not at all 5. Poor appetite or overeating: several days ( Poor appetite) 6. Feeling bad about yourself - or that you are a failure or have let yourself or your family down: not at all 7. Trouble concentrating on things, such as reading the newspaper or watching television: not at all 8. Moving or speaking so slowly that other people could have noticed. Or the opposite - being so fidgety or restless that you have been moving around a lot more than usual: not at all 9. Thoughts that you would be better off or of hurting yourself in some way: not at all Total score: 4 Depression Screening Interpretation: Negative Depression Screening Done: Yes 90904 - PHQ-9 Billing: Yes Source: Developed by Drs. Wang Prado, Shivani Alvarez, Giacomo Ladd and colleagues, with an educational evelyn from [employer]. Binge Eating Scale Group 1 A. I don't feel self-conscious about my wt. or body size when I'm with others. B. I feel concerned about how I look to others, but it normally does not make me fell disappointed with myself C. I do get self-conscious about my appearance and wt. which makes me feel disappointed in myself. D. I feel very self-conscious about my wt. and frequently I feel intense shame and disgust for myself. I try to avoid social contacts because of my self- consciousness. Response Group 1: A Group 2 A. I don't have any difficulty eating slowly in the proper manner. B. Although I seem to gobble down foods, I don't end up feeling stuffed because of eating to much. C. At times, I tend to eat quickly and then, I feel uncomfortably full afterwards. D. I have the habit of bolting down my food, without really chewing it. When this happens I usually feel uncomfortably stuffed because I've eaten to much. Response Group 2: A Group 3 A. I feel capable to control my eating urges when I want to. B. I feel like I have failed to control my eating more than the average person. C. I feel utterly helpless when it comes to feeling in control of my eating urges. D. Because I feel so helpless about controlling my eating I have become very desperate about trying to get control. Response Group 3: B Group 4 A. I don't have the habit of eating when I'm bored. B. I sometimes eat when I'm bored, but often I'm able to get busy and get my mind off food. C. I have a regular habit of eating when I'm bored, but occasionally, I can use some other activity to get my mind off eating. D. I have a strong habit of eating when I'm bored. Nothing seems to help me breath the habit. Response Group 4: A Group 5 A. I'm usually physically hungry when I eat something. B. Occasionally, I eat something on impulse even though I really am not hungry. C. I have the regular habit of eating foods, that I might not really enjoy, to satisfy a hungry feeling even though physically, I don't need the food. D. Although I'm not physically hungry, I get a hungry feeling in my mouth that only seems to be satisfied when I eat a food, like sandwich, that fills my mouth. Sometimes, when I eat the food to satisfy my mouth hunger, I then spit the food out so I won't gain weight. Response Group 5: A Group 6 A. I don't feel any guilt or self-hate after I overeat. B. After I overeat, occasionally I feel guilt or self-hate. C. Almost all the time I experience strong guilt or self-hate after I overeat. Response Group 6: A Group 7 A. I don't lose total control of my eating when dieting even after periods when I overeat. B. Sometimes when I eat a forbidden food on a diet, I feel like I blew it and eat even more. C. Frequently, I have the habit of saying to myself, I've blown it now, why not go all the way, when I overeat on a diet. When that happens I eat more. D. I have a regular habit of starting a strict diets for myself but I break the diets by going on an eating binge. My life seems to be either a feast or famine. Response Group 7: A Group 8 A. I rarely eat so much food that I feel uncomfortably stuffed afterwards. B. Usually about once a month, I each such a quantity of food, I end up feeling very stuffed. C. I have regular periods during the month when I eat large amounts of food, either at mealtime or at snacks. D. I eat so much food that I regularly feel quite uncomfortable after eating and sometimes a bit nauseous. Response Group 8: B Group 9 A. My level of calorie intake does not go up very high or go down very low on a regular basis. B. Sometimes after I overeat, I will try to reduce my caloric intake to almost nothing to compensate for the excess calories I've eaten. C. I have a regular habit of overeating during the night. It seems that my routine is not to be hungry in the morning but overeat in the evening. D. In my adult years, I have had week-long periods where I practically starve myself. This follows periods when I overeat. It seems I live a life of either feast or famine. Response Group 9: B Group 10 A. I usually am able to stop eating when I want to. I know when enough is enough. B. Every so often, I experience a compulsion to eat which I can't seem to control. C. Frequently, I experience strong urges to eat which I seem unable to control, but at other times I can control my eating urges. D. I feel incapable of controlling urges to eat. I have a fear of not being able to stop eating voluntarily. Response Group 10: C Group 11 A. I don't have any problem stopping eating when I feel full. B. I usually can stop eating when I feel full but occasionally overeat leaving me feeling uncomfortably stuffed. C. I have a problem stopping eating once I start and usually I feel uncomfortably stuffed after I eat a meal. D. Because I have a problem not being able to stop eating when I want, I sometimes have to induce vomiting to relieve my stuffed feeling. Response Group 11: B Group 12 A. I seem to eat just as much when I'm with others, Family social gatherings as when I'm by myself. B. Sometimes, when I'm with other persons, I don't eat as much as I want to eat because I'm self-conscious about my eating. C. Frequently, I eat only a small amount of food when others are present, because I'm very embarrassed about my eating. D. I feel so ashamed about overeating that I pick times to overeat when I know no one will see me. I feel like a closet eater. Response Group 12: A Group 13 A. I eat three meals a day with only an occasional between meal snack. B. I eat 3 meals a day, but I also normally snack between meals. C. When I am snacking heavily, I get in the habit of skipping regular meals. D. There are regular periods when I seem to be continually eating, with no planned meals. Response Group 13: A Group 14 A. I don't think much about trying to control unwanted eating urges. B. At least some of the time, I feel my thoughts are pre-occupied with trying to control my eating urges. C. I feel that frequently I spend much time thinking about how much I ate or about trying not to eat anymore. D. It seems to me that most of my waking hours are pre-occupied by thoughts about eating or not eating. I feel like I'm constantly struggling not to eat. Response Group 14: C Group 15 A. I don't think about food a great deal. B. I have strong craving for food but they last only for brief periods of time. C. I have days when I can't seem to think about anything else but food. D. Most of my days seem to be pre-occupied with thoughts about food. I feel like I live to eat. Response Group 15: B Group 16 A. I usually know whether or not I'm physically hungry. I take the right portion of food to satisfy me. B. Occasionally, I feel uncertain about knowing whether or not I'm physically hungry. A these times it's hard to know how much food I should take to satisfy me. C. Even though I might know how many calories I should eat, I don't have any idea what is a normal amount of food for me. Response Group 16: A Binge Eating Score: 9 Score less than 17 Minimal Risk Score between 18-26 Moderate Risk Score between 27-46 High Risk Assessment & Plan Assessment & Plan (1) Adjustment disorder, unspecified: Code(s): F43.20 - Adjustment disorder, unspecified Plan At this time, the patient is cleared from a behavioral health standpoint and will be seen for follow-up 1-2 weeks post-operatively for ongoing support. Telehealth Telehealth Telehealth Platform: [employer] Location of provider rendering services: other Location of patient: address on file Patient Identification confirmed using: Name, : Yes Telehealth method: video Patient verbally consented to treatment: Yes Patient verbally consented to billing insurance company: Yes Patient informed of any privacy concerns related to visit: Yes Minutes spent on Phone/Video with Pt.: 55 Coding Level of Care Code Established Pt Tele Psytx >53 mins ([id number]) Patient Type Established Diagnoses Adjustment disorder, unspecified F43.20 Additional Codes PHQ-9 - 62574 - PHQ-9 Billing: Yes ([id number]) Time Spent (min) 55
--- OUTSIDE RECORDS SUMMARY | 2024-11-01 09:47 | XMS_ITS ---
Author Organization [facility] Address Unknown Allergies, Adverse Reactions, Alerts Substance Reaction Status Noted Date Resolved Date Seafood active 06/29/2024 Percocet active 06/29/2024 Peanuts active 06/29/2024 oxyCODONE active 06/29/2024 Levaquin active 06/29/2024 Erythromycin active 06/29/2024 Doxycycline active 06/29/2024 Clindamycin active 06/29/2024 Bactrim active 06/29/2024 angiotensin converting enzyme inhibitors active 06/29/2024 Amoxicillin active 06/29/2024 Problems Problem Status Start Date End Date ENCOUNTER FOR SURGICAL AFTER CARE FOLLOWING SURGERY ON THE NERVOUS SYSTEM (Primary) (Z48.811 - ICD-10-CM) ACTIVE 06/29/2024 SPONDYLOLISTHESIS, LUMBAR REGION (M43.16 - ICD-10-CM) ACTIVE 06/29/2024 MUSCLE WEAKNESS (GENERALIZED) (M62.81 - ICD-10-CM) ACT MARYCHUY 06/30/2024 UNSTEADINESS ON FEET (R26.81 - ICD-10-CM) ACTIVE 06/30/2024 TYPE 2 DIABETES MELLITUS WIT H DIABETIC NEUROPATHY, UNSPECIFIED (E11.40 - ICD-10-CM) ACTIVE 06/29/2024 HERPESVIRAL INFECTION, UNSPECIFIED (B00.9 - ICD-10-CM) ACTIVE 06/29/2024 ESSENTIAL (PRIMARY) HYPERTENSION (I10 - ICD-10-CM) ACT MARYCHUY 06/29/2024 HYPERLIPIDEMIA, UNSPECIFIED (E78.5 - ICD-10-CM) ACTIVE 06/29/2024 GASTRO-ESOPHAGEAL REFLUX DIS EASE WITHOUT ESOPHAGITIS (K21.9 - ICD-10-CM) ACTIVE 06/29/2024 ANEMIA, UNSPECIFIED (D64.9 - ICD-10-CM) ACTIVE 0 06/29/2024 GENERALIZED ANXIETY DISORDER (F41.1 - ICD-10-CM) ACTIV E 06/29/2024 TYPE 2 DIABETES MELLITUS WIT HOUT COMPLICATIONS (E11.9 - ICD-10-CM) ACTIVE 06/29/2024 UNSPECIFIED ASTHMA, UNCOMPLICATED (J45.909 - ICD-10-CM ) ACTIVE 06/29/2024 OBSTRUCTIVE SLEEP APNEA (YAMILETH LT) (PEDIATRIC) (G47.33 - ICD-10-CM) ACTIVE 06/29/2024 INTERVERTEBRAL DISC DISORDER S WITH RADICULOPATHY, LUMBAR REGION (M51.16 - ICD-10-CM) ACTIVE 06/29/2024 Encounters Encounter Performer Performer Role Encounter Diagnoses Location Date Discharge - Discharged to home or self care - [facility] [place] - Private home/apt. with home health services [facility] 06/29/2024 06:36 pm EDT - 07/07/2024 04:30 pm EDT Immunizations Vaccine Date SARS-COV-2 (COVID-19) 01/20/2021 12:00 a m EDT SARS-COV-2 (COVID-19) 12/30/2020 12:00 a m EDT Prevnar 20 Pneumococcal conjugate (PCV20 ) 10/19/2022 12:00 am EST SARS-COV-2 (COVID-19 BOOSTER) 08/05/2023 12:00 am EDT SARS-COV-2 (COVID-19 BOOSTER) 06/26/2022 12:00 am EDT SARS-COV-2 (COVID-19 BOOSTER) 08/26/2021 12:00 am EST influenza, unspecified formulation 08/05 12:00 am EDT Social History
--- OUTSIDE RECORDS SUMMARY | 2024-11-01 09:47 | XMS_ITS | Continuity of Care Document ---
Author Organization [facility] Address [address] [place] [address]- Care Team Providers Care Cardiovascular Or Nurse Name Role Phone Diana Rabago MD Primary Care Physician Encounter [facility] [place](s): 09/13/24 - 10/13/24 [facility] [address] [place], [place] [address] Encounter Type: Triage Allergies, Adverse Reactions, [...] Gi queta influenza virus vaccine, inactivated 5 11/1/11 Gi queta SARS-CoV-2(COVID-19)mRNA-LNP vac([id number]) 08/05/23 Recorded pneumococcal 20-valent conjugate vaccine 10/19/22 Given [id number] 12y+ bivalent booster vax 06/26/22 Recorded SARS-CoV-2 (COVID-19) mRNA BNT-162b2 vac 08/26/21 Recorded SARS-CoV-2 (COVID-19) mRNA BNT-162b2 vac 01/20/21 Recorded SARS-CoV-2 (COVID-19) mRNA BNT-162b2 vac 12/30/20 Recorded Influenza Virus Vaccine (oldterm) 07/19/19 Recorde d Influenza Virus Vaccine (oldterm) 6 08/09/08 Given tetanus/diphtheria/pertussis, acel(Tdap) 7 10/25/15 Given FluLaval (oldterm) 07/30/10 Given tetanus-diphtheria toxoids (Td) 11/16/05 Given Pneumococcal Vaccine (oldterm) 01/26/05 Given 1Result Comment: [facility] [id number] 2Result Comment: [08/24/2017] [facility] [id number] 3Result Comment: [07/11/2013] given w/o incidense...mh 4Admin [...] Team Personnel Name: Juliette North RN Position: [facility] RN Member Role: Primary Care Nurse Name: Diana Rabago MD Position: [facility] Physician - Primary Care Member Role: PCP Address: [address] [place] [address] Adult and Pediatric Medicine [address] Telecom: Name: Annette Morales RN Position: [facility] RN Member Role: Primary Care [...] Care Nurse Name: Jacqui Torre RN Position: [facility] OB RN Member Role: Primary Care Nurse Care Team Related Persons Name: LUCIAN GLEZ Name: LUCIAN GLEZ AND SHAQUILLE Name: CAROLYN CLINE Insurance Providers Guarantor name: [facility] Information #: 1 Payer: [facility] H61 Member Number: NA Policy Number: NA Group Number: NA
--- OUTSIDE RECORDS SUMMARY | 2024-11-01 09:47 | XMS_ITS | Continuity of Care Document ---
Author Organization [facility] Neurosurger y [address], [address] [place] [address]- Care Team Providers Care Pocket Creaser Name Role Phone Diana Rabago MD Primary Care Physician [place] [facility] [place] 09/19/24 - 10/19/[address] [place], [place] [address] Encounter Type: Triage Allergies, Adverse Reactions, Alerts Substance Criticality Severity Reaction Reaction Severity Status doxycycline rash Active clindamycin Active Peanuts Itch Active oxyCODONE itchy Active erythromycin rash Active amoxicillin rash Active angiotensin converting enzym e inhibitors COUGH Active Percocet itchy Active Levaquin rash Active Bactrim rash Active Seafood Itch Active Immunizations Given and [...] vaccine, inactivated 5 08/11/11 Gi queta SARS-CoV-2(COVID-19)mRNA-LNP vac([id number]) 08/05/23 Recorded pneumococcal 20-valent conjugate vaccine 10/19/22 Given [id number] 12y+ bivalent booster vax 06/26/22 Recorded SARS-CoV-2 (COVID-19) mRNA BNT-162b2 vac 08/26/21 Recorded SARS-CoV-2 (COVID-19) mRNA BNT-162b2 vac 01/20/21 Recorded SARS-CoV-2 (COVID-19) mRNA BNT-162b2 vac 12/30/20 Recorded Influenza Virus Vaccine (oldterm) 07/19/19 Recorde d Influenza Virus Vaccine (oldterm) 6 08/09/08 Given tetanus/diphtheria/pertussis, acel(Tdap) 7 10/25/15 Given FluLaval (oldterm) 07/30/10 Given tetanus-diphtheria toxoids (Td) 11/16/05 Given Pneumococcal Vaccine (oldterm) 01/26/05 Given 1Result Comment: [facility] 60996-606-00 2Result Comment: [08/24/2017] [facility] 56146-276-48 3Result Comment: [07/11/2013] given w/o incidense...mh 4Admin [...] Team Personnel Name: Juliette North RN Position: [facility] RN Member Role: Primary Care Nurse Name: Diana Rabago MD Position: [facility] Physician - Primary Care Member Role: PCP Address: [address] [place] [address] Adult and Pediatric Medicine [address] Telecom: Name: Annette Morales RN Position: [...] Care Nurse Name: Jacqui Torre RN Position: [facility] OB RN Member Role: Primary Care Nurse Care Team Related Persons Name: LUCIAN GLEZ Name: LUCIAN GLEZ AND SHAQUILLE Name: CAROLYN CLINE Insurance Providers Guarantor name: EDWIN CLINE [facility] Information #: 1 Payer: [facility] H61 Member Number: NA Policy Number: NA Group Number: NA
--- OUTSIDE RECORDS SUMMARY | 2024-11-01 09:47 | XMS_ITS | Continuity of Care Document ---
Author Organization [facility] Neurosurger y [address], [address] [place] [address]- Care Team Providers Care Medical Laboratory Assistant Name Role Phone Diana Rabago MD Primary Care Physician [phone] [place]counter [facility] Date(s): 09/26/24 - 10/26/[address] [place], [place] [address] Encounter Type: Triage Allergies, Adverse Reactions, Alerts [...] vaccine, inactivated 5 08/11/11 Gi queta SARS-CoV-2(COVID-19)mRNA-LNP vac([id number]) 08/05/23 Recorded pneumococcal 20-valent conjugate vaccine 10/19/22 Given [id number] 12y+ bivalent booster vax 06/26/22 Recorded SARS-CoV-2 (COVID-19) mRNA BNT-162b2 vac 08/26/21 Recorded SARS-CoV-2 (COVID-19) mRNA BNT-162b2 vac 01/20/21 Recorded SARS-CoV-2 (COVID-19) mRNA BNT-162b2 vac 12/30/20 Recorded Influenza Virus Vaccine (oldterm) 07/19/19 Recorde d Influenza Virus Vaccine (oldterm) 6 08/09/08 Given tetanus/diphtheria/pertussis, acel(Tdap) 7 10/25/15 Given FluLaval (oldterm) 07/30/10 Given tetanus-diphtheria toxoids (Td) 11/16/05 Given Pneumococcal Vaccine (oldterm) 01/26/05 Given 1Result Comment: [facility] 32475-876-75 2Result Comment: [08/24/2017] [facility] [phone] 3Result Comment: [07/11/2013] given w/o incidense...mh 4Admin [...] Team Personnel Name: Juliette North RN Position: [facility] RN Member Role: Primary Care Nurse Name: Diana Rabago MD Position: [facility] Physician - Primary Care Member Role: PCP Address: [address] [place] [address] Adult and Pediatric Medicine [address] Telecom: Name: Annette Morales RN Position: [...] Care Nurse Name: Jacqui Torre RN Position: [facility] OB RN Member Role: Primary Care Nurse Care Team Related Persons Name: LUCIAN GLEZ Name: LUCIAN GLEZ AND [place]QUILLE Name: CAROLYN CLINE Insurance Providers Guarantor name: EDWIN CLINE [facility] Information #: 1 Payer: [facility] H61 Member Number: NA Policy Number: NA Group Number: NA
--- OUTSIDE RECORDS SUMMARY | 2024-11-01 09:47 | XMS_ITS | Continuity of Care Document ---
Author Organization [facility] Neurosurger y [address], [address] [place] [address]- Care Team Providers Care Quill Fixer Name Role Phone Diana Rabago MD Primary Care Physician Encounter [facility] Date(s): 09/27/24 - 10/27/[address] [place], [place] [address] Encounter Type: Triage Allergies, Adverse [...] vaccine, inactivated 5 08/11/11 Gi queta SARS-CoV-2(COVID-19)mRNA-LNP vac([id number]) 08/05/23 Recorded pneumococcal 20-valent conjugate vaccine 10/19/22 Given [id number] 12y+ bivalent booster vax 06/26/22 Recorded SARS-CoV-2 (COVID-19) mRNA BNT-162b2 vac 08/26/21 Recorded SARS-CoV-2 (COVID-19) mRNA BNT-162b2 vac 01/20/21 Recorded SARS-CoV-2 (COVID-19) mRNA BNT-162b2 vac 12/30/20 Recorded Influenza Virus Vaccine (oldterm) 07/19/19 Recorde d Influenza Virus Vaccine (oldterm) 6 08/09/08 Given tetanus/diphtheria/pertussis, acel(Tdap) 7 10/25/15 Given FluLaval (oldterm) 07/30/10 Given tetanus-diphtheria toxoids (Td) 11/16/05 Given Pneumococcal Vaccine (oldterm) 01/26/05 Given 1Result Comment: [facility] [phone] 2Result Comment: [08/24/2017] [facility] [phone] 3Result Comment: [07/11/2013] given w/o incidense...mh 4Admin [...] Team Personnel Name: Juliette North RN Position: [facility] RN Member Role: Primary Care Nurse Name: Diana Rabago MD Position: [facility] Physician - Primary Care Member Role: PCP Address: [address] [place] [address] Adult and Pediatric Medicine [address] Telecom: Name: Annette Morales RN Position: [...] Care Nurse Name: Jacqui Torre RN Position: [facility] OB RN Member Role: Primary Care Nurse Care Team Related Persons Name: LUCIAN LGEZ Name: LUCIAN GLEZ AND SHAQUILLE Name: CAROLYN CLINE Insurance Providers Guarantor name: EDWIN CLINE [facility] Information #: 1 Payer: [facility] H61 Member Number: NA Policy Number: NA Group Number: NA
--- OUTSIDE RECORDS SUMMARY | 2024-11-01 09:47 | XMS_ITS | Continuity of Care Document ---
Author Organization [facility] Address [address] [place] [address]- Care Team Providers Care Improvement Manager Name Role Phone Diana Rabago MD Primary Care Physician Encounter [facility] Date(s): 09/23/24 - 10/23/24 [facility] [address] [place], [place] [address] Encounter Type: Triage Allergies, Adverse Reactions, [...] vaccine, inactivated 5 11/1/11 Gi queta SARS-CoV-2(COVID-19)mRNA-LNP vac([id number]) 08/05/23 Recorded pneumococcal 20-valent conjugate vaccine 10/19/22 Given [id number] 12y+ bivalent booster vax 06/26/22 Recorded SARS-CoV-2 (COVID-19) mRNA BNT-162b2 vac 08/26/21 Recorded SARS-CoV-2 (COVID-19) mRNA BNT-162b2 vac 01/20/21 Recorded SARS-CoV-2 (COVID-19) mRNA BNT-162b2 vac 12/30/20 Recorded Influenza Virus Vaccine (oldterm) 07/19/19 Recorde d Influenza Virus Vaccine (oldterm) 6 08/09/08 Given tetanus/diphtheria/pertussis, acel(Tdap) 7 10/25/15 Given FluLaval (oldterm) 07/30/10 Given tetanus-diphtheria toxoids (Td) 11/16/05 Given Pneumococcal Vaccine (oldterm) 01/26/05 Given 1Result Comment: [facility] [phone] 2Result Comment: [08/24/2017] [facility] [phone] 3Result Comment: [07/11/2013] given w/o incidense...mh 4Admin [...] Team Personnel Name: Juliette North RN Position: [facility] RN Member Role: Primary Care Nurse Name: Diana Rabago MD Position: [facility] Physician - Primary Care Member Role: PCP Address: [address] [place] [address] Adult and Pediatric Medicine [address] Telecom: Name: Annette Morales RN Position: [facility] RN Member Role: Primary Care [...] Care Nurse Name: Jacqui Torre RN Position: [facility] OB RN Member Role: Primary Care Nurse Care Team Related Persons Name: LUCIAN GLEZ Name: LUCIAN GLEZ AND SHAQUILLE Name: CAROLYN CLINE Insurance Providers Guarantor name: EDWIN CLINE [facility] Information #: 1 Payer: [facility] H61 Member Number: NA Policy Number: NA Group Number: NA
== END 2024-11-01 10:15 | disposition home or self-care (01) ==
LOC: HO.HBST 09:17
PROVIDERS: PCP Internal Medicine; Visit Provider Counselor Mental Health
DX: F43.20 Adjustment disorder, unspecified (principal)
CPT/HCPCS: 90837

== ENCOUNTER → 2024-11-01 09:17 | Outpatient (BNVA) | payer OTHER, SELFPAY | PROVIDERS: PCP Internal Medicine; Visit Provider Counselor Mental Health ==

== ENCOUNTER 2024-12-07 14:28 | Outpatient (AMB) | payer OTHER, SELFPAY ==
--- NOTE | 2024-12-07 14:30 | MHC.OFFVIS ---
Intake Visit Reasons: OV- Right Knee OA follow up Intake Note: Lisa is a 59 year old female who presents today for a follow up of her Right Knee OA. Right Knee Durolane injection was administered on 10/02/24. Patient reports that the gel injection was helpful but is has become less helpful recently. Her pain is mostly felt in the posterior aspect of the knee and at night. She has been wearing a brace which has been helpful. She is taking Naproxen for her pain, which does help. Allergies acetaminophen [From Percocet] Allergy (Mild, Verified 09/18/24 11:50) Itching amoxicillin Allergy (Mild, Verified 09/27/24 08:06) Itching doxycycline Allergy (Mild, Verified 09/27/24 08:06) Itching oxycodone Allergy (Mild, Verified 09/18/24 11:50) Itching Erythromycin Allergy (Mild, Uncoded 09/27/24 08:06) Itching HPI HPI OV- Right Knee OA follow up: Details: Gerardo was doing well for about 2 months after her recent viscosupplementation injection but started having pain again. She controls that with ibuprofen. She describes swelling and pain that have improved over the past week. She states she felt good after the viscosupplementation and was doing well for about 2 months. Her primary care told her to take NSAIDs all the time. She has using them sparingly. [facility] Medical History Non-insulin dependent type 2 diabetes mellitus GERD (gastroesophageal reflux disease) Herpes Anxiety DJD (degenerative joint disease) Hyperlipidemia BMI 35.0-35.9,adult Obesity Arthritis Pre-diabetes HTN (hypertension) Surgical History History of back surgery Hx of tonsillectomy History of cholecystectomy History of appendectomy Family History Mother Cancer Hypertension Abdominal seizure Father Family history unknown Social History Alcohol intake: current Alcohol intake frequency: holidays/special occasions only Alcohol type: wine Patient Tobacco Use Status: Former Tobacco user Tobacco use type: Cigarette Substance Use Type: Marijuana Current occupational status: employed 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 Walking comfortably. Assessment & Plan Assessment & Plan (1) Localized osteoarthritis of right knee: Code(s): M17.11 - Unilateral primary osteoarthritis, right knee Category: Medical Plan: Is a very pleasant 59-year-old woman with right knee osteoarthritis. She has been managed with intermittent viscosupplementation. I would recommend that she could see me back in 4 months and we can continue this treatment. If her pain drastically worsened she can come back sooner her steroids but she has not found these helpful and she is diabetic Coding Level of Care Code Est Pt Level 3 (88672) Diagnoses Localized osteoarthritis of right knee M17.11
--- OUTSIDE RECORDS SUMMARY | 2024-12-07 17:41 | XMS_ITS | Continuity of Care Document ---
Author Organization [facility] Address [address] [place] [address]- Care Team Providers Care Set Up And Charger Name Role Phone Diana Rabago MD Primary Care Physician Encounter [facility] Date(s): 11/02/24 - 12/02/24 [facility] [address] [place], [place] [address] Attending Physician: Denise Delacruz Encounter Type: Triage [...] vaccine, inactivated 5 08/11/11 Gi queta SARS-CoV-2(COVID-19)mRNA-LNP vac([id number]) 08/05/23 Recorded pneumococcal 20-valent conjugate vaccine 10/19/22 Given [id number] 12y+ bivalent booster vax 06/26/22 Recorded SARS-CoV-2 (COVID-19) mRNA BNT-162b2 vac 08/26/21 Recorded SARS-CoV-2 (COVID-19) mRNA BNT-162b2 vac 01/20/21 Recorded SARS-CoV-2 (COVID-19) mRNA BNT-162b2 vac 12/30/20 Recorded Influenza Virus Vaccine (oldterm) 07/19/19 Recorde d Influenza Virus Vaccine (oldterm) 6 08/09/08 Given tetanus/diphtheria/pertussis, acel(Tdap) 7 10/25/15 Given FluLaval (oldterm) 07/30/10 Given tetanus-diphtheria toxoids (Td) 11/16/05 Given Pneumococcal Vaccine (oldterm) 01/26/05 Given 1Result Comment: [facility] 84159-797-05 2Result Comment: [08/24/2017] [facility] [phone] 3Result Comment: [07/11/2013] given w/o incidense...mh 4Admin [...] Representation Female (finding) Laboratory * Event Display: Non BH Lab Results Authored Date: * Event Display: Non BH Lab Results Authored Date: * Event Display: Non BH Lab Results Authored Date: * Event Display: Non BH Lab Results Authored Date: * Event Display: PIPE MACHINE OPERATOR Pap Test Authored Date: Cardiology * Lian Winter: PERFORM Event Display: Cardiovascular Results Scanned Authored Date: * Lydia Flores: PERFORM Event Display: Cardiovascular Results Scanned Authored Date: * Marizol Saldana: PERFORM Event Display: Cardiovascular Results Scanned Authored Date: Radiology * Event Display: Ultrasound Abdomen, Non-BH Authored Date: * Anuradha Coburn: PERFORM Event Display: Radiology Results Scanned Authored Date: * Colon , Lhea: PERFORM Event Display: Radiology Results Scanned Authored Date: Patient Care team information Care Team Personnel Name: Juliette North RN Position: S RN Member Role: Primary Care Nurse Name: Diana Rabago MD Position: S Physician - Primary Care Member Role: PCP Address: [address] [place] [address] Adult and Pediatric Medicine [address] Telecom: Name: Annette Morales RN Position: S RN Member Role: Primary Care Nurse Name: Ivett Arroyo RN Position: [facility] RN Member Role: Primary Care Nurse Name: Roseanna Sweet RN Position: S RN Member Role: Primary Care Nurse Name: Alejandra Ovalles RN Position: [facility] RN Member Role: Primary Care Nurse Name: Steve Ibarra Position: [facility] RN Member Role: Primary Care Nurse Name: Delbert Shelton RN Position: [facility] RN Member Role: Primary Care Nurse Name: Jacqui Torre RN Position: [facility] OB RN Member Role: Primary Care Nurse Care Team Related Persons Name: LUCIAN GLEZ Name: LUCIAN GLEZ AND SHAQUILLE Name: CAROLYN CLINE Insurance Providers Guarantor name: EDWIN [facility] Information #: 1 Payer: [facility] H61 Member Number: NA Policy Number: NA Group Number: NA
--- OUTSIDE RECORDS SUMMARY | 2024-12-07 17:41 | XMS_ITS | Continuity of Care Document ---
Author Organization [facility] Address [address] [place] [address]- Care Team Providers Care Bumper And Painter Name Role Phone Diana Rabago MD Primary Care Physician [phone] [place] [facility] Date(s): 11/06/24 - 12/06/[address] [address]- Encounter Type: Triage Allergies, Adverse Reactions, Alerts [...] vaccine, inactivated 5 08/11/11 Gi queta SARS-CoV-2(COVID-19)mRNA-LNP vac([id number]) 08/05/23 Recorded pneumococcal 20-valent conjugate vaccine 10/19/22 Given [id number] 12y+ bivalent booster vax 06/26/22 Recorded SARS-CoV-2 (COVID-19) mRNA BNT-162b2 vac 08/26/21 Recorded SARS-CoV-2 (COVID-19) mRNA BNT-162b2 vac 01/20/21 Recorded SARS-CoV-2 (COVID-19) mRNA BNT-162b2 vac 12/30/20 Recorded Influenza Virus Vaccine (oldterm) 07/19/19 Recorde d Influenza Virus Vaccine (oldterm) 6 08/09/08 Given tetanus/diphtheria/pertussis, acel(Tdap) 7 10/25/15 Given FluLaval (oldterm) 07/30/10 Given tetanus-diphtheria toxoids (Td) 11/16/05 Given Pneumococcal Vaccine (oldterm) 01/26/05 Given 1Result Comment: [facility] [id number] 2Result Comment: [08/24/2017] [facility] [phone] 3Result Comment: [07/11/2013] given w/o incidense...mh 4Admin Note: per pt 5Admin Note: @ work 6Admin Note: sonofi pasteur, pt denies allergies and cold symptoms, inj given w/o incident 7Result Comment: [10/25/2015] gijessica with out incident Problem List Condition Confirmation [...] Name: Juliette North RN Position: [facility] RN Member Role: Primary Care Nurse Name: Diana Rabago MD Position: [facility] Physician - Primary Care Member Role: PCP Address: [address] [place] [address] Adult and Pediatric Medicine [address] Telecom: Name: Annette Morales RN Position: [facility] RN Member Role: Primary Care Nurse [...] Name: Jacqui Torre RN Position: [facility] OB RN Member Role: Primary Care Nurse Care Team Related Persons Name: LUCIAN GLEZ Name: LUCIAN GLEZ AND SHAQUILLE Name: CAROLYN CLINE Insurance Providers Guarantor name: EDWIN CLINE [facility] Information #: 1 Payer: [facility] H61 Member Number: NA Policy Number: NA Group Number: NA
--- OUTSIDE RECORDS SUMMARY | 2024-12-07 17:41 | XMS_ITS | Continuity of Care Document ---
Author Organization [facility] Address [address] [place] [address]- Care Team Providers Care Appeals Specialist Name Role Phone Diana Rabago MD Primary Care Physician Encounter [facility] Date(s): 11/01/24 - 12/01/24 [facility] [address] [place], [place] [address] Encounter Type: Triage Allergies, Adverse [...] vaccine, inactivated 5 11/1/11 Gi queta SARS-CoV-2(COVID-19)mRNA-LNP vac([id number]) 08/05/23 Recorded pneumococcal 20-valent conjugate vaccine 10/19/22 Given [id number] 12y+ bivalent booster vax 06/26/22 Recorded SARS-CoV-2 (COVID-19) mRNA BNT-162b2 vac 08/26/21 Recorded SARS-CoV-2 (COVID-19) mRNA BNT-162b2 vac 01/20/21 Recorded SARS-CoV-2 (COVID-19) mRNA BNT-162b2 vac 12/30/20 Recorded Influenza Virus Vaccine (oldterm) 07/19/19 Recorde d Influenza Virus Vaccine (oldterm) 6 08/09/08 Given tetanus/diphtheria/pertussis, acel(Tdap) 7 10/25/15 Given FluLaval (oldterm) 07/30/10 Given tetanus-diphtheria toxoids (Td) 11/16/05 Given Pneumococcal Vaccine (oldterm) 01/26/05 Given 1Result Comment: [facility] [phone] 2Result Comment: [08/24/2017] [facility] [phone] 3Result Comment: [07/11/2013] given w/o incidense...mh 4Admin [...] Team Personnel Name: Juliette North RN Position: [facility] RN Member Role: Primary Care Nurse Name: Diana Rabago MD Position: [facility] Physician - Primary Care Member Role: PCP Address: [address] [place] [address] Adult and Pediatric Medicine [address] Telecom: Name: Annette Morales RN Position: [facility] RN Member Role: Primary Care Nurse [...] Care Nurse Name: Jacqui Torre RN Position: [facility] OB RN Member Role: Primary Care Nurse Care Team Related Persons Name: LUCIAN GLEZ Name: LUCIAN GLEZ AND SHAQUILLE Name: CAROLYN CLINE Insurance Providers Guarantor name: EDWIN CLINE [facility] Information #: 1 Payer: [facility] H61 Member Number: NA Policy Number: NA Group Number: NA
--- OUTSIDE RECORDS SUMMARY | 2024-12-07 17:41 | XMS_ITS | Continuity of Care Document ---
Author Organization [facility] Address [address] [place] [address]- Care Team Providers Care Medical Transcription Editor Name Role Phone Diana Rabago MD Primary Care Physician [phone] Encounter [facility] Date(s): 10/18/24 - 11/17/24 [facility] [address] [place], [place] [address] Encounter Type: Triage Allergies, [...] vaccine, inactivated 5 11/1/11 Gi queta SARS-CoV-2(COVID-19)mRNA-LNP vac([id number]) 08/05/23 Recorded pneumococcal 20-valent conjugate vaccine 10/19/22 Given [id number] 12y+ bivalent booster vax 06/26/22 Recorded SARS-CoV-2 [...] Given 1Result Comment: [facility] [phone] 2Result Comment: [08/24/2017] [facility] [phone] 3Result Comment: [07/11/2013] given w/o incidense...mh 4Admin [...] Primary Care Member Role: PCP Address: [address] [place] [address] Adult and Pediatric Medicine [address] Telecom: Name: Annette Morales RN Position: [...] EDWIN CLINE [facility] Information #: 1 Payer: [facility] H61 Member Number: NA Policy Number: NA Group Number: NA
--- OUTSIDE RECORDS SUMMARY | 2024-12-07 17:41 | XMS_ITS | Continuity of Care Document ---
Author Organization [facility] y [address], [address] [place] [address]- Care Team Providers Care Quality Control Assessor Name Role Phone Diana Rabago MD Primary Care Physician [phone] Encounter [facility] Date(s): 11/06/24 - 11/13/[address] [place], [place] [address] Attending Physician: Anushka Christianson DO Encounter Type: Office Visit Allergies, Adverse Reactions, [...] vaccine, inactivated 5 08/11/11 Gi queta SARS-CoV-2(COVID-19)mRNA-LNP vac([id number]) 08/05/23 Recorded pneumococcal 20-valent conjugate vaccine 10/19/22 Given [id number] 12y+ bivalent booster vax 06/26/22 Recorded SARS-CoV-2 (COVID-19) mRNA BNT-162b2 vac 08/26/21 Recorded SARS-CoV-2 (COVID-19) mRNA BNT-162b2 vac 01/20/21 Recorded SARS-CoV-2 (COVID-19) mRNA BNT-162b2 vac 12/30/20 Recorded Influenza Virus Vaccine (oldterm) 07/19/19 Recorde d Influenza Virus Vaccine (oldterm) 6 08/09/08 Given tetanus/diphtheria/pertussis, acel(Tdap) 7 10/25/15 Given FluLaval (oldterm) 07/30/10 Given tetanus-diphtheria toxoids (Td) 11/16/05 Given Pneumococcal Vaccine (oldterm) 01/26/05 Given 1Result Comment: [facility] [id number] 2Result Comment: [08/24/2017] [facility] [id number] 3Result Comment: [07/11/2013] given w/o incidense...mh 4Admin [...] oldest [Reference Range]: 1 Height 170.18 cm (11/06/24 2:16 PM) Weight 114 kg (11/06/24 2:16 PM) Body Mass Index [18.5-24.99 kg/m2] 39.36 kg/m2 *>HHI* (11/06/24 2:16 PM) Social History Social History Type Response Smoking Status Former smoker; Tobac co user in household: No; Other: 2-3 cigs a dayquit may 2017; entered on: 08/24/17 Sex Sex Representation Female (finding) Patient Care team information Care Team Personnel Name: Juliette North RN Position: [facility] RN Member Role: Primary Care Nurse Name: Diana Rabago MD Position: [facility] Physician - Primary Care Member Role: PCP Address: [address] [place] [address] Adult and Pediatric Medicine [address] Telecom: Name: Annette Morales RN Position: [facility] RN Member Role: Primary Care Nurse Name: Ivett Arroyo RN Position: [facility] RN Member Role: Primary Care Nurse Name: Roseanna Sweet RN Position: [facility] RN Member Role: Primary Care Nurse Name: Alejandra Ovalles RN Position: [facility] RN Member Role: Primary Care Nurse Name: Steve Ibarra Position: S RN Member Role: Primary Care Nurse Name: Delbert Shelton RN Position: S RN Member Role: Primary Care Nurse Name: Jacqui Torre RN Position: [facility] OB RN Member Role: Primary Care Nurse Care Team Related Persons Name: LUCIAN GLEZ Name: LUCIAN GLEZ AND SHAQUILLE Name: CAROLYN CLINE Insurance Providers Guarantor name: EDWIN HALL Health Plan Information #: 1 Payer: [facility] H61 Member Number: [id number] Policy Number: NA Group Number: [id number] Health Plan Information #: 2 Payer: [facility] H61 Member Number: [id number] Policy Number: NA Group Number: NA
--- OUTSIDE RECORDS SUMMARY | 2024-12-07 17:41 | XMS_ITS | Continuity of Care Document ---
Author Organization [facility] Address [address] [place] [address]- Care Team Providers Care Stunt Double Name Role Phone Diana Rabago MD Primary Care Physician [phone] Encounter [facility] Date(s): 10/12/24 - 11/11/24 [facility] [address] [place], [place] [address] Encounter Type: Triage Allergies, Adverse Reactions, [...] vaccine, inactivated 5 08/11/11 Gi queta SARS-CoV-2(COVID-19)mRNA-LNP vac([id number]) 08/05/23 Recorded pneumococcal 20-valent conjugate vaccine 10/19/22 Given [id number] 12y+ bivalent booster vax 06/26/22 Recorded SARS-CoV-2 (COVID-19) mRNA BNT-162b2 vac 08/26/21 Recorded SARS-CoV-2 (COVID-19) mRNA BNT-162b2 vac 01/20/21 Recorded SARS-CoV-2 (COVID-19) mRNA BNT-162b2 vac 12/30/20 Recorded Influenza Virus Vaccine (oldterm) 07/19/19 Recorde d Influenza Virus Vaccine (oldterm) 6 08/09/08 Given tetanus/diphtheria/pertussis, acel(Tdap) 7 10/25/15 Given FluLaval (oldterm) 07/30/10 Given tetanus-diphtheria toxoids (Td) 11/16/05 Given Pneumococcal Vaccine (oldterm) 01/26/05 Given 1Result Comment: [facility] [phone] 2Result Comment: [08/24/2017] [facility] [phone] 3Result Comment: [07/11/2013] given w/o incidense...mh 4Admin [...] Team Personnel Name: Juliette North RN Position: [facility] RN Member Role: Primary Care Nurse Name: Diana Rabago MD Position: [facility] Physician - Primary Care Member Role: PCP Address: [address] [place] [address] Adult and Pediatric Medicine [address] Telecom: Name: Annette Morales RN Position: [facility] RN Member Role: Primary Care [...] Care Nurse Name: Jacqui Torre RN Position: [facility] OB RN Member Role: Primary Care Nurse Care Team Related Persons Name: LUCIAN GLEZ Name: LUCIAN GLEZ AND [place]QUIL[place] Name: CAROLYN CLINE Insurance Providers Guarantor name: EDWIN CLINE [facility] Information #: 1 Payer: [facility] H61 Member Number: NA Policy Number: NA Group Number: NA
--- OUTSIDE RECORDS SUMMARY | 2024-12-07 17:41 | XMS_ITS | Continuity of Care Document ---
Author Organization [facility] Address [address] [place] [address]- Care Team Providers Care Registry Rn Name Role Phone Diana Rabago MD Primary Care Physician Encounter [facility] Date(s): 10/13/24 - 11/12/24 [facility] [address] [place], [place] [address] Encounter Type: Triage Allergies, Adverse [...] vaccine, inactivated 5 11/1/11 Gi queta SARS-CoV-2(COVID-19)mRNA-LNP vac([id number]) 08/05/23 Recorded pneumococcal 20-valent conjugate vaccine 10/19/22 Given [id number] 12y+ bivalent booster vax 06/26/22 Recorded SARS-CoV-2 (COVID-19) mRNA BNT-162b2 vac 08/26/21 Recorded SARS-CoV-2 (COVID-19) mRNA BNT-162b2 vac 01/20/21 Recorded SARS-CoV-2 (COVID-19) mRNA BNT-162b2 vac 12/30/20 Recorded Influenza Virus Vaccine (oldterm) 07/19/19 Recorde d Influenza Virus Vaccine (oldterm) 6 08/09/08 Given tetanus/diphtheria/pertussis, acel(Tdap) 7 10/25/15 Given FluLaval (oldterm) 07/30/10 Given tetanus-diphtheria toxoids (Td) 11/16/05 Given Pneumococcal Vaccine (oldterm) 01/26/05 Given 1Result Comment: [facility] [id number] 2Result Comment: [08/24/2017] [facility] [phone] 3Result Comment: [07/11/2013] given w/o incidense...mh 4Admin [...] Name: Juliette North RN Position: [facility] RN Member Role: Primary Care Nurse Name: Diana Rabago MD Position: [facility] Physician - Primary Care Member Role: PCP Address: [address] [place] [address] Adult and Pediatric Medicine [address] Telecom: Name: Annette Morales RN Position: [facility] RN Member Role: Primary Care Nurse Name: [...] Name: Jacqui Torre RN Position: [facility] OB RN Member Role: Primary Care Nurse Care Team Related Persons Name: LUCIAN GLEZ Name: LUCIAN GLEZ AND [place]QUIL[place] Name: CAROLYN CLINE Insurance Providers Guarantor name: EDWIN CLINE [facility] Information #: 1 Payer: [facility] H61 Member Number: NA Policy Number: NA Group Number: NA
--- OUTSIDE RECORDS SUMMARY | 2024-12-07 17:41 | XMS_ITS | Continuity of Care Document ---
Author Organization [facility] Address [address] [place] [address]- Care Team Providers Care Materials Clerk Name Role Phone Diana Rabago MD Primary Care Physician [phone] Encounter [facility] Date(s): 08/08/24 - 12/06/24 [facility] [address] [address] Attending Physician: Ashley Christopher MD Admitting Physician: Ashley Christopher MD Referring Physician: Diana Rabago MD Encounter Type: Pre-OutPatient One Time Allergies, Adverse Reactions, Alerts Substance Criticality Severity Reaction Reaction Severity Status doxycycline rash Active clindamycin Active oxyCODONE itchy Active Seafood Itch Active erythromycin rash Active amoxicillin rash Active [...] vaccine, inactivated 5 08/11/11 Gi queta SARS-CoV-2(COVID-19)mRNA-LNP vac([id number]) 08/05/23 Recorded pneumococcal 20-valent conjugate vaccine 10/19/22 Given [id number] 12y+ bivalent booster vax 06/26/22 Recorded SARS-CoV-2 (COVID-19) mRNA BNT-162b2 vac 08/26/21 Recorded SARS-CoV-2 (COVID-19) mRNA BNT-162b2 vac 01/20/21 Recorded SARS-CoV-2 (COVID-19) mRNA BNT-162b2 vac 12/30/20 Recorded Influenza Virus Vaccine (oldterm) 07/19/19 Recorde d Influenza Virus Vaccine (oldterm) 6 08/09/08 Given tetanus/diphtheria/pertussis, acel(Tdap) 7 10/25/15 Given FluLaval (oldterm) 07/30/10 Given tetanus-diphtheria toxoids (Td) 11/16/05 Given Pneumococcal Vaccine (oldterm) 01/26/05 Given 1Result Comment: [facility] [id number] 2Result Comment: [08/24/2017] [facility] [id number] 3Result Comment: [07/11/2013] given w/o incidense...mh 4Admin [...] Care Nurse Name: Diana Rabago MD Position: [facility] Physician - Primary Care Member Role: PCP Address: [address] [place] [address] Adult and Pediatric Medicine [address] Telecom: Name: Annette Morales RN Position: [...] Care Nurse Name: Jacqui Torre RN Position: [facility] OB RN Member Role: Primary Care Nurse Care Team Related Persons Name: LUCIAN GLEZ Name: LUCIAN GLEZ AND [place]QUIL[place] Name: CAROLYN CLINE Insurance Providers Guarantor name: EDWIN CLINE Health Plan Information #: 1 Payer: [facility] H61 Member Number: [id number] Policy Number: NA Group Number: [id number] Health Plan Information #: 2 Payer: [employer] H61 Member Number: [id number] Policy Number: NA Group Number: NA
--- OUTSIDE RECORDS SUMMARY | 2024-12-07 17:42 | XMS_ITS | Continuity of Care Document ---
Author Organization [facility] Address [address] [place] [address]- Care Team Providers Care Bacteriologist Food Name Role Phone Diana Rabago MD Primary Care Physician Encounter [facility] Date(s): 11/02/24 - 11/09/24 [facility] [address] [place] [place] [address] Encounter Diagnosis Viral respiratory infection(Discharge Diagnosis) - 11/02/24 Cough variant asthma(Discharge Diagnosis) - 11/02/24 Diabetes(Discharge Diagnosis) - 11/02/24 Constipation(Discharge Diagnosis) - 11/02/24 Attending Physician: Larry Edmond MD Encounter Type: Office Visit Allergies, Adverse Reactions, Alerts Substance Criticality Severity Reaction Reaction Severity Status doxycycline rash Active clindamycin Active Percocet itchy Active Seafood Itch Active oxyCODONE itchy Active [...] vaccine, inactivated 5 08/11/11 Gi queta SARS-CoV-2(COVID-19)mRNA-LNP vac([id number]) 08/05/23 Recorded pneumococcal 20-valent conjugate vaccine 10/19/22 Given [id number] 12y+ bivalent booster vax 06/26/22 Recorded SARS-CoV-2 (COVID-19) mRNA BNT-162b2 vac 08/26/21 Recorded SARS-CoV-2 (COVID-19) mRNA BNT-162b2 vac 01/20/21 Recorded SARS-CoV-2 (COVID-19) mRNA BNT-162b2 vac 12/30/20 Recorded Influenza Virus Vaccine (oldterm) 07/19/19 Recorde d Influenza Virus Vaccine (oldterm) 6 08/09/08 Given tetanus/diphtheria/pertussis, acel(Tdap) 7 10/25/15 Given FluLaval (oldterm) 07/30/10 Given tetanus-diphtheria toxoids (Td) 11/16/05 Given Pneumococcal Vaccine (oldterm) 01/26/05 Given 1Result Comment: [facility] [phone] 2Result Comment: [08/24/2017] [facility] [phone] 3Result Comment: [07/11/2013] given w/o incidense...mh 4Admin [...] Diagnosis Diagnosis Type Effective Dates Health Status Clinical Service Informant Viral respiratory infection Discharge Diagnosis 11/02/24 Cough variant asthma Discharge Diagnosis 11/02/24 Diabetes Discharge Diagnosis 11/02/24 Constipation Discharge Diagnosis 11/02/24 Social History Social History Type Response Smoking Status Former smoker; Tobac co user in household: No; Other: 2-3 cigs a dayquit may 2017; entered on: 08/24/17 Sex Sex Representation Female (finding) Patient Care team information Care Team Personnel Name: Juliette North RN Position: [facility] RN Member Role: Primary Care Nurse Name: Diana Rabago MD Position: [facility] Physician - Primary Care Member Role: PCP Address: [address] [place] [address] Adult and Pediatric [address] Telecom: Name: Annette Morales RN Position: [facility] RN Member Role: Primary Care [...] Care Nurse Name: Jacqui Torre RN Position: [facility] OB RN Member Role: Primary Care Nurse Care Team Related Persons Name: LUCIAN GLEZ Name: LUCIAN GLEZ AND SHAQUILLE Name: CAROLYN CLINE Insurance Providers Guarantor name: EDWIN CLINE [facility] Information #: 1 Payer: [facility] H61 Member Number: [id number] Policy Number: DIANA Group Number: [id number] Health Plan Information #: 2 Payer: R H61 Member Number: [id number] Policy Number: DIANA Group Number: NA
--- OUTSIDE RECORDS SUMMARY | 2024-12-07 17:42 | XMS_ITS | Continuity of Care Document ---
Author Organization [facility] Address [address] [place] [address]- Care Team Providers Care Generator Assembler Name Role Phone Diana Rabago MD Primary Care Physician Encounter [facility] Date(s): 10/09/24 - 11/08/[address] [address] Attending Physician: Denise Delacruz Admitting Physician: Denise Delacruz Referring Physician: Denise Delacruz Encounter Type: Triage Allergies, Adverse Reactions, Alerts Substance Criticality Severity Reaction Reaction Severity Status doxycycline rash Active clindamycin Active Levaquin rash Active oxyCODONE itchy Active erythromycin rash Active amoxicillin rash Active angiotensin converting enzym e inhibitors COUGH Active Percocet itchy Active Bactrim rash Active [...] vaccine, inactivated 5 08/11/11 Gi queta SARS-CoV-2(COVID-19)mRNA-LNP vac([id number]) 08/05/23 Recorded pneumococcal 20-valent conjugate vaccine 10/19/22 Given [id number] 12y+ bivalent booster vax 06/26/22 Recorded SARS-CoV-2 [...] 1Result Comment: [facility] [phone] 2Result Comment: [08/24/2017] [facility] [phone] 3Result Comment: [07/11/2013] given w/o incidense...mh 4Admin [...] Team Personnel Name: Juliette North RN Position: [facility] RN Member Role: Primary Care Nurse Name: Diana Rabago MD Position: [facility] Physician - Primary Care Member Role: PCP Address: [address] [place] [address] Adult and Pediatric Medicine [address] Telecom: Name: Annette Morales RN Position: [...] Care Nurse Name: Jacqui Torre RN Position: [facility] OB RN Member Role: Primary Care Nurse Care Team Related Persons Name: LUCIAN GLEZ Name: LUCIAN GLEZ AND SHAQUILLE Name: CAROLYN CLINE Insurance Providers Guarantor name: EDWIN CLINE Health Plan Information #: 1 Payer: [facility] H61 Member Number: NA Policy Number: NA Group Number: NA
--- OUTSIDE RECORDS SUMMARY | 2024-12-07 17:42 | XMS_ITS | Continuity of Care Document ---
Author Organization [facility] Address [address] [place] [address]- Care Team Providers Care Cardiac Exercise Specialist Name Role Phone Diana Rabago MD Primary Care Physician Encounter [facility] Date(s): 10/23/24 - 11/22/24 [facility] [address] [place], [place] [address] Encounter Type: Triage Allergies, Adverse Reactions, Alerts [...] vaccine, inactivated 5 08/11/11 Gi queta SARS-CoV-2(COVID-19)mRNA-LNP vac([id number]) 08/05/23 Recorded pneumococcal 20-valent conjugate vaccine 10/19/22 Given [id number] 12y+ bivalent booster vax 06/26/22 Recorded SARS-CoV-2 (COVID-19) mRNA BNT-162b2 vac 08/26/21 Recorded SARS-CoV-2 (COVID-19) mRNA BNT-162b2 vac 01/20/21 Recorded SARS-CoV-2 (COVID-19) mRNA BNT-162b2 vac 12/30/20 Recorded Influenza Virus Vaccine (oldterm) 07/19/19 Recorde d Influenza Virus Vaccine (oldterm) 6 08/09/08 Given tetanus/diphtheria/pertussis, acel(Tdap) 7 10/25/15 Given FluLaval (oldterm) 07/30/10 Given tetanus-diphtheria toxoids (Td) 11/16/05 Given Pneumococcal Vaccine (oldterm) 01/26/05 Given 1Result Comment: [facility] [phone] 2Result Comment: [08/24/2017] [facility] [phone] 3Result Comment: [07/11/2013] given w/o incidense...mh 4Admin [...] - Primary Care Member Role: PCP Address: [address] [place] [address] Adult and Pediatric Medicine [address] Telecom: Name: Annette Morales RN Position: [facility] RN Member [...] Insurance Providers Guarantor name: EDWIN CLINE [facility] Information #: 1 Payer: [facility] H61 Member Number: NA Policy Number: NA Group Number: NA
== END 2024-12-07 15:03 | disposition home or self-care (01) ==
PROVIDERS: PCP Internal Medicine; Visit Provider Orthopaedic Surgery
DX: M17.11 Unilateral primary osteoarthritis, right knee (principal)
CPT/HCPCS: 99213

== ENCOUNTER → 2024-12-07 14:28 | Outpatient (BNVA) | payer OTHER, SELFPAY | PROVIDERS: PCP Internal Medicine; Visit Provider Orthopaedic Surgery ==

== ENCOUNTER → 2025-03-30 07:59 | Outpatient (REF) | payer OTHER, SELFPAY ==
--- NOTE | ~2025-03-30 | NM_ITS ---
EXERCISE MYOCARDIAL PERFUSION STUDY INDICATION: Abnormal EKG, preoperative evaluation TECHNIQUE: The patient was brought in for an exercise perfusion study on 03/30/2025. Patient performed exercise as per Herbie protocol and was injected 35 mCi of sestamibi once target heart rate was achieved. Images were obtained using the SPECT gamma camera interlaced with the gating device. Images were obtained in supine position. Resting perfusion study was performed on 04/03/2025. Patient was administered 35 mCi of sestamibi intravenously at rest. Images were then obtained in supine position. Total DLP 130 mGy-cm. Images were processed with the software and compared side to side in short axis, horizontal long axis and vertical long axis views. FINDINGS: Raw aquisition reviewed. The stress perfusion study showed diminished tracer uptake in the basal part of inferior wall. There is improvement with CT attenuation correction suggestive of diaphragmatic attenuation artifact. The gated study shows normal LV systolic function with calculated LVEF of 47%, but visually in the normal range. LV cavity is normal in size. The gated study shows normal wall thickening and contraction of segments. Resting study shows diminished tracer uptake in the distal part of inferolateral wall. There is improvement with CT attenuation correction suggestive of diaphragmatic attenuation artifact. Gating at rest reveals normal wall motion with ejection fraction at 54%. The findings are consistent with no clear reversible or fixed perfusion abnormality. NM/NM kolton perf SPECT rest & str IMPRESSION: 1. Myocardial perfusion imaging study shows probably normal myocardial perfusion. 2. Gated LVEF is under estimated. Visually, appears normal. 3. Transient ischemic dilatation not present. EKG component of the test reported separately. Electronically signed by: Johnathan Mazariegos MD 04/03/2025 03:22 PM EDT
--- NOTE | 2025-03-30 08:01 | CA_ITS ---
Acquisition Time: 2025-03-30 08:12:59 Total Exercise Time: 00:06:15 Test Indications: Abnormal ECG,Pre-Op Evaluation Medications: SEE H&P Protocol: ELEANOR Max HR: 142 BPM 88% of Pred: 160 BPM Max BP: 172/70 mmHG Max Work Load: 7.3 METS Exercise stress test with exercise 6 mins 15 secs of Eleanor Protocol, achieving 88% MPHR, with reports of SOB, no chest pain, without any arrythmias, with normotensive response to exercise. Without any EKG changes meeting criteria for ischemia. In recovery, breathing quickly improved to baseline. Nuclear images pending. Test reviewed with Dr. Cook. Referred By: Danial Cowan Electronically Signed By: Trevin Ruiz
--- OUTSIDE RECORDS SUMMARY | 2025-03-30 08:02 | XMS_ITS | Patient Health Record ---
Author Organization [facility] Address [address] [place] [address] Care Team Providers Care State Attorney Name Role Phone Diana Rabago MD Primary Care Provider Unavailab Flash Li Unavailable [phone] Allergies Allergen (clinical drug ingredient) Drug/Non Drug Allergy documented on EMR Reaction Allergy Type Onset Date Status Biaxin itching Drug Allergy Active erythromycin Erythromycin itching Drug Allergy A ctive azithromycin Zithromax Z-Abdiel itching Drug Allergy Active Penicillin itching Drug Allergy Active Reason For Referral No Information Medications Medication SIG (Take, Route, Fr equency, Duration) Notes Start Date End Date Status Cyclobenzaprine HCl Active Calcium Active valACYclovir HCl Act cindi Avapro Active Vitamin D Active hydroCHLOROthiazide Active Urea 20 % as directed Externally Active Simvastatin Active Omeprazole Active Problems Problem Type SNOMED Code ICD Code Onset Dates Problem Status W/U Status Risk Notes Problem Achilles bursitis (996246805) Achilles Tendonitis Bursitis (726.71) Active confirmed Problem Onychomycosis (151716743) Onychomycosis (110.1) Active confirmed Problem Disorder of sebaceous gland (3212194) Xerosis (706.8) Active confirmed Plan Of Treatment Pending Test Test Name Order Date X ray : Foot, right 3V 07/06/2011 Insurance Providers Payer Name Payer Address Payer Phone Subscriber Number Group Number Insured Name Patient Relationship to Insured Coverage Start Date Coverage End Date [facility] [address] [place] [address] [phone] [id number] Lisa Villatoro Self - patient is the insured Medical (General) History Medical History History ICD Code Arthritis back, hip, knee pain cataracts lupus chicken pox CAD Surgical History Surgery Date(Month/Year) gall bladder 2004
== END ==
LOC: HO.CARD 07:59
PROVIDERS: Visit Provider Surgery
DX: R94.31 Abnormal electrocardiogram [ECG] [EKG] (principal)
CPT/HCPCS: 78452; 93017; A9500; J0280; J2785

== ENCOUNTER → 2025-03-30 08:01 | Outpatient (BNV) | payer OTHER, SELFPAY | DX: R06.02 Shortness of breath (principal) | CPT/HCPCS: 78452; 93016; 93018 ==

== ENCOUNTER 2025-04-05 14:47 | Outpatient (AMB) | payer OTHER, SELFPAY ==
--- NOTE | 2025-04-05 15:01 | MHC.OFFVIS ---
Intake Visit Reasons: Right Knee Durolane Intake Note: Lisa is a 60 year old female who presents today for a Right Knee Durolane Injection. Allergies acetaminophen (From Percocet) Allergy (Mild, Verified 09/18/24 11:50) Itching amoxicillin Allergy (Mild, Verified 09/27/24 08:06) Itching doxycycline Allergy (Mild, Verified 09/27/24 08:06) Itching oxycodone Allergy (Mild, Verified 09/18/24 11:50) Itching Erythromycin Allergy (Mild, Uncoded 09/27/24 08:06) Itching HPI HPI Right Knee Durolane: Details: Ms. Villatoro is a 60-year-old female who presents to the office today for right knee Durolane injection. [facility] Medical History Non-insulin dependent type 2 diabetes mellitus GERD (gastroesophageal reflux disease) Herpes Anxiety DJD (degenerative joint disease) Hyperlipidemia BMI 35.0-35.9,adult Obesity Arthritis Pre-diabetes HTN (hypertension) Surgical History History of back surgery Hx of tonsillectomy History of cholecystectomy History of appendectomy Family History Mother Cancer Hypertension Abdominal seizure Father Family history unknown Social History Alcohol intake: current Alcohol intake frequency: holidays/special occasions only Alcohol type: wine Patient Tobacco Use Status: Former Tobacco user Tobacco use type: Cigarette Substance Use Type: Marijuana Current occupational status: employed 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 Walking comfortably. Office Procedures AMB Joint Injection/Aspiration Joint Injection/Aspiration Primary Site: right knee Prep: site was prepped using aseptic technique, ethochloride spray was applied and injection warnings given Injected: other (Durolane injection) Approach Used: anterolateral Procedure: The patient tolerated the procedure well, but had some pain with the injection and there was some relief with the local anesthesia Coding 86341 - Large joint Procedure code (CPT) selection complete Assessment & Plan Assessment & Plan (1) Localized osteoarthritis of right knee: Code(s): M17.11 - Unilateral primary osteoarthritis, right knee Category: Medical Plan The patient was offered a drooling injection in the right knee. The patient was explained the risks, benefits, and alternatives to receiving this injection. After receiving consent for the injection, the patient had the procedure done while in the office today. The patient tolerated the procedure well with no complications. Follow-up will be PRN, or sooner if needed Coding Level of Care Code Procedure Only Diagnoses Localized osteoarthritis of right knee M17.11 CPT Codes Coding - 58212 Large joint: 31910 - Large joint ([id number])
--- OUTSIDE RECORDS SUMMARY | 2025-04-05 17:58 | XMS_ITS | Patient Health Record ---
[facility] Address [address] [place] [address] Care Team Providers Care Psychology Department Chair Name Role Phone Diana Rabago MD Primary Care Provider Unavailab Flash Li Unavailable [phone] Allergies Allergen (clinical drug ingredient) Drug/Non Drug [...] Status W/U Status Risk Notes Problem Achilles Tendonitis Bursitis (726.71) Active confirmed Problem Onychomycosis (340307356) Onychomycosis (110.1) Active confirmed Problem Disorder of sebaceous gland (9186734) Xerosis (706.8) Active confirmed Plan Of Treatment Pending Test Test Name Order Date X ray : Foot, right 3V 07/06/2011 Insurance Providers Payer Name Payer Address Payer Phone Subscriber Number Group Number Insured Name Patient Relationship to Insured Coverage Start Date Coverage End Date [facility] [address] [place] [address] [id number] Lisa Villatoro Self - patient is the insured Medical (General) History Medical History History ICD Code Arthritis back, hip, knee pain cataracts lupus chicken pox CAD Surgical History Surgery Date(Month/Year) gall bladder 2004
== END 2025-04-05 15:06 | disposition home or self-care (01) ==
PROVIDERS: PCP Internal Medicine; Visit Provider Physician Assistant
DX: M17.11 Unilateral primary osteoarthritis, right knee (principal)
CPT/HCPCS: 20610

== ENCOUNTER → 2025-04-05 14:47 | Outpatient (BNVA) | payer OTHER, SELFPAY | PROVIDERS: PCP Internal Medicine; Visit Provider Orthopaedic Surgery | DX: M17.11 Unilateral primary osteoarthritis, right knee (principal); E11.9 Type 2 diabetes mellitus without complications; K21.9 Gastro-esophageal reflux disease without esophagitis; F41.9 Anxiety disorder, unspecified; E78.5 Hyperlipidemia, unspecified; E66.9 Obesity, unspecified; I10 Essential (primary) hypertension; F12.90 Cannabis use, unspecified, uncomplicated; Z68.35 Body mass index [BMI] 35.0-35.9, adult; Z87.891 Personal history of nicotine dependence | CPT/HCPCS: 20610; J7318 ==

== ENCOUNTER 2025-06-05 08:31 | Outpatient (REF) | payer OTHER, SELFPAY ==
--- OUTSIDE RECORDS SUMMARY | 2025-06-07 09:10 | XMS_ITS | Patient Health Record ---
Author Organization [facility] Address [address] [place] [address] Care Team Providers Care Apron Trimmer Name Role Phone Diana Rabago MD Primary Care Provider Unavailab Flash Li Unavailable [phone] Allergies Allergen (clinical drug ingredient) Drug/Non Drug [...] W/U Status Risk Notes Problem Achilles bursitis (264458191) Achilles Tendonitis Bursitis (726.71) Active confirmed Problem Onychomycosis (981322169) Onychomycosis (110.1) Active confirmed Problem Disorder of sebaceous gland (8258398) Xerosis (706.8) Active confirmed Plan Of Treatment Pending Test Test Name Order Date X ray : Foot, right 3V 07/06/2011 Insurance Providers Payer Name Payer Address Payer Phone Subscriber Number Group Number Insured Name Patient Relationship to Insured Coverage Start Date Coverage End Date [facility] [address] [place] [address] [phone] [id number] Lisa Villatoro Self - patient is the insured Medical (General) History Medical History History ICD Code Arthritis back, hip, knee pain cataracts lupus chicken pox CAD Surgical History Surgery Date(Month/Year) gall bladder 2004
== END 2025-06-05 08:32 | disposition home or self-care (01) ==
LOC: HO.HOSX 08:31
PROVIDERS: Visit Provider Physician Assistant
DX: Z13.89 Encounter for screening for other disorder (principal)

== ENCOUNTER 2025-06-08 09:26 | Outpatient (AMB) | payer OTHER, SELFPAY ==
--- OUTSIDE RECORDS SUMMARY | 2025-06-08 10:15 | XMS_ITS | Patient Health Record ---
Author Organization [facility] Address [address] [facility] [address] Care Team Providers Care Doll Dresser Name Role Phone Diana Rabago MD Primary Care Provider Unavailab Flash Li Unavailable [phone] Allergies Allergen (clinical drug ingredient) Drug/Non Drug [...] W/U Status Risk Notes Problem Achilles bursitis (905042720) Achilles Tendonitis Bursitis (726.71) Active confirmed Problem Onychomycosis (649269433) Onychomycosis (110.1) Active confirmed Problem Disorder of sebaceous gland (8076955) Xerosis (706.8) Active confirmed Plan Of Treatment Pending Test Test Name Order Date X ray : Foot, right 3V 07/06/2011 Insurance Providers Payer Name Payer Address Payer Phone Subscriber Number Group Number Insured Name Patient Relationship to Insured Coverage Start Date Coverage End Date [facility] [address] [place] [address] [phone] [id number] Lisa Villatoro Self - patient is the insured Medical (General) History Medical History History ICD Code Arthritis back, hip, knee pain cataracts lupus chicken pox CAD Surgical History Surgery Date(Month/Year) gall bladder 2004
--- NOTE | 2025-06-08 10:57 | MHC.OFFVISWM ---
VS Expanded 06/08/25 11:12 Height 5 ft 7 in Weight 226 lb 4 oz BMI 35.4 Body Fat % 46.9 Body Fat Mass 106.1 Fat Free Mass 120.2 Visceral Fat Rating 17 Body Water % 36.4 Body Water Mass 82.4 Basal Metabolic Rate/Score 1,550 Intake Visit Reasons: TV Pre Op LSG 06/21/2025 Allergies amoxicillin Allergy (Mild, Verified 06/08/25 10:58) Itching doxycycline Allergy (Mild, Verified 06/08/25 10:58) Itching oxycodone Allergy (Mild, Verified 06/08/25 10:58) Itching Erythromycin Allergy (Mild, Uncoded 06/08/25 10:58) Itching Medication List - Last Reconciled 06/08/25 by Danial Cowan MD acetaminophen 1,000 mg PO Q6H PRN albuterol sulfate 90 mcg/actuation 1 inh inhalation Q4H PRN atorvastatin 80 mg PO BEDTIME azelastine 1 spray intranasal DAILY cholecalciferol (vitamin D3) 25 mcg PO DAILY diazepam 2 mg PO BID PRN docusate sodium 100 mg PO BID dulaglutide (Trulicity) 1.5 mg subcut .QWEEK ON WEDNESDAY fexofenadine 180 mg PO DAILY fluoxetine 40 mg PO DAILY fluticasone propion-salmeterol 500-50 mcg/dose 1 inh inhalation BID fluticasone propionate 50 mcg/actuation (Flonase Allergy Relief) 1 spray intranasal DAILY gabapentin 300 mg PO TID hydrochlorothiazide 25 mg PO DAILY irbesartan 300 mg PO BEDTIME metformin 500 mg PO BEDTIME montelukast 10 mg PO QPM naproxen 500 mg PO BID PRN omeprazole 20 mg PO BID ondansetron 4 mg PO Q12H pantoprazole 40 mg PO DAILY polyethylene glycol 3350 17 grams PO DAILY sucralfate 10 mL PO BID tramadol 50 mg PO DAILY PRN valacyclovir 500 mg PO DAILY HPI HPI TV Pre Op LSG 06/21/2025: Details: Start time: 10.40am, End time: 11.10am ?I spent 25 minutes speaking with the patient on the phone plus an additional 5 minutes reviewing and updating records for a total of 30 minutes HPI Comments Details: Overall weight loss: 23.4lbs, or 9.37% TBWL Is doing 2 Celebrate Rebuild protein shakes, 2-3 Celebrate protein bars and one meal (8 forks each) Exercise: is doing treadmill daily for 200 calories [facility] Medical History (Updated 06/07/25 @ 09:50 by Afua Patrick, SNEHA) MACARIO (generalized anxiety disorder) Back pain Respiratory tract congestion with cough Environmental allergies Seasonal allergies History of cardiac murmur as a child Non-insulin dependent type 2 diabetes mellitus GERD (gastroesophageal reflux disease) Herpes Anxiety DJD (degenerative joint disease) Hyperlipidemia BMI 35.0-35.9,adult Obesity Arthritis Pre-diabetes HTN (hypertension) Surgical History (Updated 06/07/25 @ 09:40 by Afua Patrick, SNEHA) History of esophagogastroduodenoscopy (EGD) (09/27/24) History of back surgery (06/14/24) Hx of tonsillectomy History of cholecystectomy History of appendectomy Family History Mother Cancer Hypertension Abdominal seizure Father Family history unknown Social History (Updated 06/07/25 @ 09:38 by Afua Patrick RN) Household Members: Spouse Housing: House Are you a primary associate director career services to a significant other at home: No Do you presently have visiting nurse or other home services: No Alcohol intake: current Alcohol intake frequency: holidays/special occasions only Alcohol type: wine Patient Tobacco Use Status: Former Tobacco user Tobacco use type: Cigarette Substance Use Type: Former Substance User and Marijuana Current occupational status: employed 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 , 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 Physical Exam Vital Signs: BMI result Body Mass Index 35.4 Telehealth Telehealth Telehealth Platform: Telephone Location of provider rendering services: practice address Location of patient: address on file Patient Identification confirmed using: Name, : Yes Telehealth method: voice only Patient verbally consented to treatment: Yes Patient verbally consented to billing insurance company: Yes Patient informed of any privacy concerns related to visit: Yes Minutes spent on Phone/Video with Pt.: 30 Assessment & Plan Assessment & Plan (1) Obesity: Code(s): E66.9 - Obesity, unspecified Category: Medical Qualifiers: Obesity type: due to excess calories Obesity classification: adult class 2 (BMI 35 - 39.9) Serious obesity comorbidity presence: with serious comorbidity Body mass index: BMI 35.0-35.9 Qualified Code(s): E66.812 - Obesity, class 2; E66.01 - Morbid (severe) obesity due to excess calories; Z68.35 - Body mass index [BMI] 35.0-35.9, adult Plan: 1. Plan for lap sleeve gastrectomy including upper GI endoscopy. All tests has been completed and reviewed and the patient is cleared for the surgery. ?If diaphragmatic or ventral hernias are present at time of surgery, these will be repaired laparoscopically as well. Risks and complications were discussed in detail including possible conversion to an open procedure, anastomotic leak, bleeding requiring transfusion, small bowel obstruction, , DVT and pulmonary embolism, cardiac, or pulmonary complications, as computer terminal operator complications such as anastomotic ulcer, insufficient weight loss and vitamin deficiencies. I emphasized the importance of close follow-up, adherence to instructions and good communication. So far she has proven to be an excellent communicator and very compliant with all our directions accomplishing a great weight loss. I believe that she is an excellent candidate and she is ready. 2. Preop prescriptions were provided and explained the purpose of each one. Need to be purchased preop. Start Pantoprazole now as you get it from the pharmacy, 1 pill per day. Sucralfate and Zofran are for after surgery as needed. 3. Bowel prep: please do 7 packets ?of Miralax mixing each one with a an 8oz glass of water, crystal light, gatorade zero, or propel ?on 06/19/25 and the same amount on 06/20/25. The Miralax you begin with one packet at a time in 8oz water or crystal light, gatorade zero, or propel ?as early in the day as you can and you do them back to back until you finish them. Continue the protein shakes during ?the bowel prep. 4. Needs to purchase 1oz medicine cups . 5. Needs to purchase Children's liquid Tylenol for postop pain control. 6. She needs to stop the Metformin and Naproxen as of tomorrow 06/09/25. She needs to stop the Gabapentin on 06/17/25 (last pill) and the last dose of Trulicity must be no later than 06/14/25. 7. Avoid aspirin, motrin, Advil, Aleve, Meloxicam, Excedrin, Ibuprofen, Naproxyn. Tylenol is OK. 8. She needs to purchase the Celebrate multivitamins from the hospital's gift shop, chewable or pills whatever you prefer. 9. Will do basic preop blood work-up any day between Wednesday06/12/25 and Wednesday06/15/25 fasting for 12 hours and is scheduled to see the Anesthesiologist prior to the day of surgery. 10. Importance of adherence to postop folllow-up and recommendations was underscored and she understands that. 11. Stop food and bars as of Wednesday06/10/25 and continue with TWO Celebrate Rebuild protein shakes (ONE scoop EACH in 8oz almond milk) at 7am-9am and 10am-12pm and three more Celebrate REBUILD protein shake with TWO scoops EACH in 8oz of almond milk at 1pm-3pm, 4pm-6pm and 7pm-9pm 12. No soups, broths or V8 13. The patient's?medical?history has been reviewed and they are considered low risk for post op DVT and therefore DVT prophylaxis is not considered necessary. Travel after surgery was reviewed. The patient has not disclosed any travel plans during the first 30 days after surgery and they have been advised that within the first 30 days after surgery any bus, plane, train or car travel over 2 hours in duration is contraindicated due to the possibility of developing blood clots from immobility. Any travel, needs to include periods of ambulation of 10 minutes in duration every 2 hours.? Patient was instructed to discuss any plans for travel during this period with their bariatric surgeon.? 14. As of tomorrow, please check your blood pressure daily in the morning. If your blood pressure is: Below 120/70: do not take the Hydrochorothiazide or the Irbesartan 121/71 to 135/85: take HALF Hydrochorothiazide and HALF Irbesartan Over 136/86: take the whole Hydrochorothiazide and the WHOLE Irbesartan 15. Please take at the day of surgery the following medications: Hydrochorothiazide and the Irbesartan if the blood pressure that day is high enough to justify it based on the parameters at the previous bullet point. 16. Stop any control pills and don't use them for one month after surgery 17. Absolutely no smoking or vaping, or marijuana until the surgery and for at least the first 4 weeks. Only nicotine patches are allowed. 18. Send me weight measurements on Wednesday06/15/25 and then on 06/21/25, the day of surgery before you go to the hospital. 19. Avoid any steroids by mouth for any reason. Let me know if someone prescribes them to you 20. These instructions supersede anything else you read in the handbook, anything you watched in videos or classes or you were told by any other provider. If there is any conflict, you follow the above instructions and nothing else. Orders: Orders Comprehensive Met. Panel Today E11.9 - Type 2 diabetes mellitus without complications, E66.01 - Morbid (severe) obesity due to excess calories, E66.812 - Obesity, class 2, E78.5 - Hyperlipidemia, unspecified, I10 - Essential (primary) hypertension, Z68.35 - Body mass index [BMI] 35.0-35.9, adult Lipid Panel Today E11.9 - Type 2 diabetes mellitus without complications, E66.01 - Morbid (severe) obesity due to excess calories, E66.812 - Obesity, class 2, E78.5 - Hyperlipidemia, unspecified, I10 - Essential (primary) hypertension, Z68.35 - Body mass index [BMI] 35.0-35.9, adult Partial Thromboplastin Time Today E11.9 - Type 2 diabetes mellitus without complications, E66.01 - Morbid (severe) obesity due to excess calories, E66.812 - Obesity, class 2, E78.5 - Hyperlipidemia, unspecified, I10 - Essential (primary) hypertension, Z68.35 - Body mass index [BMI] 35.0-35.9, adult Prothrombin Time INR Today E11.9 - Type 2 diabetes mellitus without complications, E66.01 - Morbid (severe) obesity due to excess calories, E66.812 - Obesity, class 2, E78.5 - Hyperlipidemia, unspecified, I10 - Essential (primary) hypertension, Z68.35 - Body mass index [BMI] 35.0-35.9, adult TSH reflex Free T4 Today E11.9 - Type 2 diabetes mellitus without complications, E66.01 - Morbid (severe) obesity due to excess calories, E66.812 - Obesity, class 2, E78.5 - Hyperlipidemia, unspecified, I10 - Essential (primary) hypertension, Z68.35 - Body mass index [BMI] 35.0-35.9, adult Insulin Today E11.9 - Type 2 diabetes mellitus without complications, E66.01 - Morbid (severe) obesity due to excess calories, E66.812 - Obesity, class 2, E78.5 - Hyperlipidemia, unspecified, I10 - Essential (primary) hypertension, Z68.35 - Body mass index [BMI] 35.0-35.9, adult Complete Blood Count Auto Diff Today E11.9 - Type 2 diabetes mellitus without complications, E66.01 - Morbid (severe) obesity due to excess calories, E66.812 - Obesity, class 2, E78.5 - Hyperlipidemia, unspecified, I10 - Essential (primary) hypertension, Z68.35 - Body mass index [BMI] 35.0-35.9, adult C Reactive Protein Today E11.9 - Type 2 diabetes mellitus without complications, E66.01 - Morbid (severe) obesity due to excess calories, E66.812 - Obesity, class 2, E78.5 - Hyperlipidemia, unspecified, I10 - Essential (primary) hypertension, Z68.35 - Body mass index [BMI] 35.0-35.9, adult Hemoglobin A1c Today E11.9 - Type 2 diabetes mellitus without complications, E66.01 - Morbid (severe) obesity due to excess calories, E66.812 - Obesity, class 2, E78.5 - Hyperlipidemia, unspecified, I10 - Essential (primary) hypertension, Z68.35 - Body mass index [BMI] 35.0-35.9, adult Type and Screen Today E11.9 - Type 2 diabetes mellitus without complications, E66.01 - Morbid (severe) obesity due to excess calories, E66.812 - Obesity, class 2, E78.5 - Hyperlipidemia, unspecified, I10 - Essential (primary) hypertension, Z68.35 - Body mass index [BMI] 35.0-35.9, adult Medications: New pantoprazole 40 mg PO DAILY 90 tabs 0RF K21.9 - Gastro-esophageal reflux disease without esophagitis sucralfate 10 mL PO BID 600 mL 2RF K21.9 - Gastro-esophageal reflux disease without esophagitis ondansetron Only take one every 12 hours as needed if you have nausea 4 mg PO Q12H 20 tabs 0RF nausea and vomiting R11.0 - Nausea polyethylene glycol 3350 Mix each measuring cup with 8oz of water, Crystal light, or Gatorade zero, or Propel and do 7 measuring cups on 06/19/25 and another 7 measuring cups on 06/20/25 17 grams PO DAILY 238 grams 0RF
[2025-06-08 11:12] VITALS: BMI 35.4
== END 2025-06-08 12:08 | disposition home or self-care (01) ==
LOC: HO.HBS 09:26
PROVIDERS: Visit Provider Surgery
DX: E66.812 Obesity, class 2 (principal); E66.01 Morbid (severe) obesity due to excess calories; Z68.35 Body mass index [BMI] 35.0-35.9, adult
CPT/HCPCS: 99214

== ENCOUNTER 2025-06-21 07:47 | Inpatient (IN) | payer OTHER, SELFPAY ==
--- OUTSIDE RECORDS SUMMARY | 2025-05-03 12:32 | XMS_ITS | Patient Health Record ---
Author Organization [facility] Address [address] [place] [address] Care Team Providers Care Weaving Inspector Name Role Phone Diana Rabago MD Primary Care Provider Unavailab Flash Li Unavailable [phone] Allergies Allergen (clinical drug ingredient) Drug/Non Drug [...] W/U Status Risk Notes Problem Achilles bursitis (261285469) Achilles Tendonitis Bursitis (726.71) Active confirmed Problem Onychomycosis (121108499) Onychomycosis (110.1) Active confirmed Problem Disorder of sebaceous gland (1403147) Xerosis (706.8) Active confirmed Plan Of Treatment Pending Test Test Name Order Date X ray : Foot, right 3V 07/06/2011 Insurance Providers Payer Name Payer Address Payer Phone Subscriber Number Group Number Insured Name Patient Relationship to Insured Coverage Start Date Coverage End Date [facility] [address] [facility] [place] [address] [phone] [id number] Lisa Villatoro Self - patient is the insured Medical (General) History Medical History History ICD Code Arthritis back, hip, knee pain cataracts lupus chicken pox CAD Surgical History Surgery Date(Month/Year) gall bladder 2004
[2025-06-07 09:34] VITALS: BMI 35.5
[2025-06-15 07:51] LABS: MANUAL DIFF FLAG NO
[2025-06-15 08:09] LABS: Hematocrit 35.2 % (37.0-47.0); Hemoglobin 11.5 g/dl (12.0-16.0); Imm Gran Abs Auto 0.01 X10*3/uL (0.00-0.03); Imm Gran Pct Auto 0.1 % (0.0-0.4); Lymphocytes Absolute Auto 3.2 X10*3/uL (1.2-4.9); Mean Corpuscular HGB Conc 32.7 g/dl (31.0-35.0); Mean Corpuscular Hemoglobin 29.4 pg (27.0-33.0); Mean Corpuscular Volume 90.0 fL (80.0-98.0); NRBC Abs Auto 0.000 X10*3/uL (0.0-0.012); NRBC Pct Auto 0.0 /100WBC (0.0-0.2); Platelet Count 289 X10*3/uL (160-400); Red Blood Count 3.91 X10*6/uL (4.20-5.50); White Blood Count 7.0 X10*3/uL (4.8-10.8)
[2025-06-15 08:17] LABS: Hemoglobin A1C 132.0220 umol/L; Total Hemoglobin (HGBA1C) 3007.8832 umol/L
[2025-06-15 08:19] LABS: INTERNATIONAL NORM RATIO 1.0 (0.9-1.1); Prothrombin Time 11.3 SEC (10.9-12.4)
[2025-06-15 08:21] LABS: Partial Thromboplastin Time 32.0 SEC (26.7-34.1)
[2025-06-15 08:42] LABS: Alanine Aminotransferase 60 U/L (0-31); Albumin Level 4.0 g/dL (3.5-5.0); Alkaline Phosphatase 87 U/L (39-117); Anion Gap 11 (12-20); Aspartate Amino Transferase 52 U/L (5-31); Blood Urea Nitrogen 17 mg/dL (9-16); Calcium 9.4 mg/dL (8.4-10.2); Carbon Dioxide 30 mmol/L (22-29); Chloride 103 mmol/L (96-108); Cholesterol 162 mg/dL (<200); Creatinine Clr Calc Pharmacy 111.8; Estimated Glomerular Filt Rate > 60; HDL Cholesterol 50 mg/dL (>40); Potassium 4.1 mmol/L (3.3-5.1); Sodium 140 mmol/L (135-145); Total Protein 7.2 g/dL (6.5-8.0); Triglycerides 55 mg/dL (<150)
--- NOTE | 2025-06-19 13:08 | HO.ANESPROP2 ---
Documented by User: Richelle Cardona NP 06/19/25 13:13 HPI - Anesthesia Eval Consult details Narrative: 60 yr old female for Gastrectomy Sleeve,EGD,possible Diaphragmatic Hernia,possible Ventral Hernia,possible Open Type 2 DM: A1C 6.2% Had negative cardiac stress test 03/2025 for abnormal EKG 09/2024 Anesthesia Pre-Procedure Meds Is the patient on any of the following meds?: GLP1/DPP4 PMFSH Active Problems Active Problems: All Active Problems (Updated 06/07/25 @ 09:50 by Afua Patrick, SNEHA) Abnormal EKG (Acute) Localized osteoarthritis of right knee (Acute) Numbness and tingling in right hand (Acute) Trigger thumb, left thumb (Acute) Trigger thumb, right thumb (Acute) Osteoarthritis of left knee (Acute) Non-insulin dependent type 2 diabetes mellitus (Acute) GERD (gastroesophageal reflux disease) (Acute) Herpes (Acute) Anxiety (Acute) DJD (degenerative joint disease) (Acute) HTN (hypertension) (Acute) Hyperlipidemia (Acute) BMI 35.0-35.9,adult (Acute) Obesity (Acute) Past Medical History Medical History MACARIO (generalized anxiety disorder) Back pain Respiratory tract congestion with cough Environmental allergies Seasonal allergies History of cardiac murmur as a child Non-insulin dependent type 2 diabetes mellitus GERD (gastroesophageal reflux disease) Herpes Anxiety DJD (degenerative joint disease) Hyperlipidemia BMI 35.0-35.9,adult Obesity Arthritis Pre-diabetes HTN (hypertension) Family History Family History Mother Cancer Hypertension Abdominal seizure Father Family history unknown Family history of problems with anesthesia: No Surgical History Surgical History History of esophagogastroduodenoscopy (EGD) (09/27/24) History of back surgery (06/14/24) Hx of tonsillectomy History of cholecystectomy History of appendectomy History of Problems with Anesthesia: No Social History Social History Household Members: Spouse Housing: House Are you a primary care manager to a significant other at home: No Do you presently have visiting nurse or other home services: No Alcohol intake: current Alcohol intake frequency: holidays/special occasions only Alcohol type: wine Patient Tobacco Use Status: Former Tobacco user Tobacco use type: Cigarette Smoked in Last 30 Days: No Use of substances other than those prescribed or required for medical reasons: No Substance Use Type: Former Substance User and Marijuana Have you been hit, kicked, punched, or otherwise hurt by someone within the past year? 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 Meds Allergies Allergy/AdvReac Type Severity Reaction Status Date / Time amoxicillin Allergy Mild Itching Verified 06/13/25 16:20 doxycycline Allergy Mild Itching Verified 06/13/25 16:20 oxycodone Allergy Mild Itching Verified 06/13/25 16:20 Erythromycin Allergy Mild Itching Uncoded 06/08/25 10:58 Home Medications ?Medication ?Instructions ?Recorded ?Confirmed ?Last Taken ?Type fluticasone propionate 50 1 spray intranasal DAILY 02/14/21 06/21/25 06/20/25 History mcg/actuation nasal spray,suspension (Flonase Allergy Relief) hydrochlorothiazide 25 mg tablet 25 mg PO DAILY 02/14/21 06/08/25 06/21/25 History omeprazole 20 mg capsule,delayed 20 mg PO BID@0630,1630 02/14/21 06/21/25 06/20/25 History release atorvastatin 80 mg tablet 80 mg PO BEDTIME 07/15/22 06/21/25 06/20/25 History irbesartan 300 mg tablet 300 mg PO BEDTIME 07/15/22 06/21/25 06/20/25 History metformin 500 mg tablet 500 mg PO BEDTIME 11/17/23 06/08/25 06/07/25 History acetaminophen 500 mg capsule 1,000 mg PO Q6H PRN Pain 09/01/24 06/21/25 06/20/25 History diazepam 2 mg tablet 2 mg PO BID PRN Muscle Spasm 09/01/24 06/08/25 06/18/25 History montelukast 10 mg tablet 10 mg PO QPM 09/01/24 06/21/25 06/20/25 History dulaglutide 1.5 mg/0.5 mL 1.5 mg subcut .QWEEK ON Wednesday09/18/24 06/08/25 06/10/25 History subcutaneous pen injector (Trulicity) tramadol 50 mg tablet 50 mg PO DAILY PRN Pain 09/18/24 06/21/25 Unknown History albuterol sulfate 90 mcg/actuation 1 inh inhalation Q4H PRN wheezing 06/07/25 06/21/25 06/20/25 History aerosol inhaler azelastine 137 mcg (0.1 %) nasal 1 spray intranasal DAILY 06/07/25 06/21/25 06/20/25 History spray cholecalciferol (vitamin D3) 25 25 mcg PO DAILY 06/07/25 06/21/25 06/20/25 History mcg (1,000 unit) tablet docusate sodium 100 mg capsule 100 mg PO BID 06/07/25 06/08/25 06/18/25 History fexofenadine 180 mg tablet 180 mg PO DAILY 06/07/25 06/21/25 06/20/25 History fluoxetine 40 mg capsule 40 mg PO DAILY 06/07/25 06/21/25 06/20/25 History fluticasone 500 mcg-salmeterol 50 1 inh inhalation BID 06/07/25 06/21/25 06/20/25 History mcg/dose blistr powdr for inhalation gabapentin 300 mg capsule 300 mg PO TID 06/07/25 06/08/25 06/19/25 History naproxen 500 mg tablet 500 mg PO BID PRN Pain 06/07/25 06/08/25 06/07/25 History valacyclovir 500 mg tablet 500 mg PO DAILY 06/07/25 06/21/25 06/20/25 History Exam Height,Weight and Vital Signs: Height 5 ft 7 in Weight 102.965 kg Pertinent Lab Results Pertinent Lab Results: Laboratory Tests 06/15/25 06/15/25 07:19 07:48 WBC 7.0 RBC 3.91 L Hgb 11.5 L Hct 35.2 L MCV 90.0 MCH 29.4 MCHC 32.7 RDW 14.9 Plt Count 289 MPV 9.6 Immature Gran % (Auto) 0.1 Neut % (Auto) 45.2 Lymph % (Auto) 45.9 H [place] % (Auto) 8.1 Eos % (Auto) 0.4 Baso % (Auto) 0.3 Lymph # (Auto) 3.2 [place] # (Auto) 0.6 Eos # (Auto) 0.0 Baso # (Auto) 0.0 Abs Immat Gran (auto) 0.01 Absolute Neuts (auto) 3.2 Absolute Nucleated RBC 0.000 Nucleated RBC % (auto) 0.0 PT 11.3 INR 1.0 APTT 32.0 Sodium 140 Potassium 4.1 Chloride 103 Carbon Dioxide 30 H Anion Gap 11 L BUN 17 H Creatinine 0.66 Estim Creat Clear Calc 111.8 Estimated GFR > 60 Random Glucose 109 Estimat Average Glucose 131 Hemoglobin A1c % 6.2 H Insulin Level 12 Calcium 9.4 Total Bilirubin 0.3 AST 52 H ALT 60 H Alkaline Phosphatase 87 C-Reactive Protein 0.15 Total Protein 7.2 Albumin 4.0 Triglycerides 55 Cholesterol 162 LDL Cholesterol, Calc 101 H HDL Cholesterol 50 TSH 2.20 Blood Type O Positive Antibody Screen NEGATIVE Narrative Narrative: EKG 09/2024 Vent. Rate : 068 BPM Atrial Rate : 068 BPM P-R Int : 168 ms QRS Dur : 072 ms QT Int : 396 ms P-R-T Axes : 048 -04 013 degrees QTc Int : 421 ms Normal sinus rhythm Low voltage QRS Cannot rule out Inferior infarct , age undetermined Abnormal ECG No previous ECGs available ECHO 09/2024 Conclusions: - Mildly enlarged left atrium otherwise normal study Nuclear stress test 03/2025 IMPRESSION: 1. Myocardial perfusion imaging study shows probably normal myocardial perfusion. 2. Gated LVEF is under estimated. Visually, appears normal. 3. Transient ischemic dilatation not present. Assessment and Plan Final Anesthetic Review Family History of Problems with Anesthesia: No History of Problems with Anesthesia: No Documented by User: Eliza Underwood MD 06/21/25 10:34 REPLACED BY [facility] Past Medical History Medical History MACARIO (generalized anxiety disorder) Back pain Respiratory tract congestion with cough Environmental allergies Seasonal allergies History of cardiac murmur as a child Non-insulin dependent type 2 diabetes mellitus GERD (gastroesophageal reflux disease) Herpes Anxiety DJD (degenerative joint disease) Hyperlipidemia BMI 35.0-35.9,adult Obesity Arthritis Pre-diabetes HTN (hypertension) Family History Family History Mother Cancer Hypertension Abdominal seizure Father Family history unknown Surgical History Surgical History History of esophagogastroduodenoscopy (EGD) (09/27/24) History of back surgery (06/14/24) Hx of tonsillectomy History of cholecystectomy History of appendectomy Social History Social History Household Members: Spouse Housing: House Are you a primary care manager to a significant other at home: No Do you presently have visiting nurse or other home services: No Alcohol intake: current Alcohol intake frequency: holidays/special occasions only Alcohol type: wine Patient Tobacco Use Status: Former Tobacco user Tobacco use type: Cigarette Smoked in Last 30 Days: No Use of substances other than those prescribed or required for medical reasons: No Substance Use Type: Former Substance User and Marijuana Have you been hit, kicked, punched, or otherwise hurt by someone within the past year? 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 Meds Allergies Allergy/AdvReac Type Severity Reaction Status Date / Time amoxicillin Allergy Mild Itching Verified 06/13/25 16:20 doxycycline Allergy Mild Itching Verified 06/13/25 16:20 oxycodone Allergy Mild Itching Verified 06/13/25 16:20 Erythromycin Allergy Mild Itching Uncoded 06/08/25 10:58 Home Medications ?Medication ?Instructions ?Recorded ?Confirmed ?Last Taken ?Type fluticasone propionate 50 1 spray intranasal DAILY 02/14/21 06/21/25 06/20/25 History mcg/actuation nasal spray,suspension (Flonase Allergy Relief) hydrochlorothiazide 25 mg tablet 25 mg PO DAILY 02/14/21 06/08/2525 History omeprazole 20 mg capsule,delayed 20 mg PO BID@0630,1630 02/14/21 06/21/25 06/20/25 History release atorvastatin 80 mg tablet 80 mg PO BEDTIME 07/15/22 06/21/25 06/20/25 History irbesartan 300 mg tablet 300 mg PO BEDTIME 07/15/22 06/21/25 06/20/25 History metformin 500 mg tablet 500 mg PO BEDTIME 11/17/23 06/08/25 06/07/25 History acetaminophen 500 mg capsule 1,000 mg PO Q6H PRN Pain 09/01/24 06/21/25 06/20/25 History diazepam 2 mg tablet 2 mg PO BID PRN Muscle Spasm 09/01/24 06/08/25 06/18/25 History montelukast 10 mg tablet 10 mg PO QPM 09/01/24 06/21/25 06/20/25 History dulaglutide 1.5 mg/0.5 mL 1.5 mg subcut .QWEEK ON Wednesday09/18/24 06/08/25 06/10/25 History subcutaneous pen injector (Trulicity) tramadol 50 mg tablet 50 mg PO DAILY PRN Pain 09/18/24 06/21/25 Unknown History albuterol sulfate 90 mcg/actuation 1 inh inhalation Q4H PRN wheezing 06/07/25 06/21/25 06/20/25 History aerosol inhaler azelastine 137 mcg (0.1 %) nasal 1 spray intranasal DAILY 06/07/25 06/21/25 06/20/25 History spray cholecalciferol (vitamin D3) 25 25 mcg PO DAILY 06/07/25 06/21/25 06/20/25 History mcg (1,000 unit) tablet docusate sodium 100 mg capsule 100 mg PO BID 06/07/25 06/08/25 06/18/25 History fexofenadine 180 mg tablet 180 mg PO DAILY 06/07/25 06/21/25 06/20/25 History fluoxetine 40 mg capsule 40 mg PO DAILY 06/07/25 06/21/25 06/20/25 History fluticasone 500 mcg-salmeterol 50 1 inh inhalation BID 06/07/25 06/21/25 06/20/25 History mcg/dose blistr powdr for inhalation gabapentin 300 mg capsule 300 mg PO TID 06/07/25 06/08/25 06/19/25 History naproxen 500 mg tablet 500 mg PO BID PRN Pain 06/07/25 06/08/25 06/07/25 History valacyclovir 500 mg tablet 500 mg PO DAILY 06/07/25 06/21/25 06/20/25 History Exam Airway Mallampati Class: III TM Dist: >3cm Neck ROM: Full Loose/Missing/Broken Teeth: No Heart: RRR Lungs: CTA Assessment and Plan Assessment Anesthesia Assessment: Anesthesia Plan Discussed and Chart Reviewed Final Anesthetic Review NPO: Yes ASA Class: II Final Preanesthetic Review: Meds/Allgs Chart Reviewed, Consent Obtained/Reviewed and Anes Risks/Benef Reviewed Patient Risk: Low Procedure Risk: Intermediate Anesthetic Plan Anesthetic Plan: GA Disposition: Standard PACU
[2025-06-21] VITALS (14 sets, daily range): BP systolic 114–141; BP diastolic 64–91; PULSE 66–96; RESP 16–18; TEMP 36.1–36.8; O2SAT 95–100; BMI 34.6
[2025-06-21] MEDS: Lactated Ringers 1,000 ML 999 ML IV (08:46)
[2025-06-21] MEDS: Aprepitant 32 MG/4.4 ML VIAL IVPUSH (08:46)
[2025-06-21 08:51] LABS: Glucose, Whole Blood 107 mg/dL (60-115)
--- NOTE | 2025-06-21 09:24 | PHA.MEDREC ---
Pharmacy Consult ? Medication Reconciliation Pharmacy has reviewed the medication reconciliation completed by nursing. Pt confirmed Trulicity (form mail order) 1.5mg on Sundays. Pt Will continue omperazole post op, and pt states they finished the courses of PEG and sucralfate.
--- NOTE | 2025-06-21 09:49 | PM.OP ---
Brief Operative Note Date of Service: 06/21/25 Pre-op diagnosis: Severe obesirt with comorbidities (see below) Post-op diagnosis: same (& abdominal adhesions) Procedure: INITIAL PATIENT BMI ON PRESENTATION AT OUR OFFICE: 39.2 LAST BMI BEFORE SURGERY: 34.6 kg/m2 COMORBIDITIES: Hyperlipidemia, GERD, asthma, DJD, Herpes, non-insulin dependent diabetes, hypertension, liver steatosis, left atrium dilation ?The patient presented to the Weight Management Program with significant obesity that was negatively impacting the patient's comorbidities as listed above.? The program is a phased program with a special focus on preoperative medical weight management to promote substantial weight loss and prepare the patients for the second phase of the program: bariatric surgery. The patient participated in an intensive weekly lifestyle ?intervention and exercise program during which the patient ?has lost between the initial office visit and the last preoperative visit 28.8 lbs, or 11.53% of initial actual body weight. It was deemed appropriate for the patient to now have bariatric surgery. In light of the current Covid-19 pandemic and the well documented strong association of obesity and increased risk of worse outcomes if infected with Covid-19 (REFERENCES:https://pubmed.ncbi.nlm.nih.gov/21921105/,?https://pubmed.ncbi.nlm.nih.gov/20353388/), any delay in undergoing bariatric surgery may lead to the patient's worsening health condition and increased?risk of more severe Covid-19 disease if infected. In addition a recent?study from [facility] published in [facility] on 10/06/2021 ([email or web address]) found that, among patients with obesity, substantial weight loss achieved with surgery was associated with improved outcomes of COVID-19 infection. The findings suggest that obesity can be a modifiable risk factor for the severity of COVID-19 infection. In addition, the patient met the BMI-criteria for bariatric surgery based on the BMI on initial presentation. The patient should not be penalized for achieving such weight loss because ?it is not sustainable long-term without surgical intervention and it was achieved in preparation for bariatric surgery ?under my direction and based on my published research ([email or web address] and?https://www.soard.org/article/[email or web address](35)10788-X/pdf) ?that a 10% preoperative weight loss improves long-term weight loss after surgery and reduces perioperative complications.? Insurance carriers such as [facility] have endorsed my recommendations ?and have included in their policies criteria to include a 10% preoperative weight loss requirement. PROCEDURE: Esophago-gastroscopy,, laparoscopic lysis of adhesions, laparoscopic sleeve gastrectomy and laparoscopic gastropexy INDICATIONS: This is a 60 year-old female who was electively scheduled for laparoscopic, possibly open sleeve gastrectomy. The risks and complications of the procedure were discussed with the patient in advance, particularly the possibility of ; pulmonary embolism; staple line leak; bleeding; GERD; cardiac, pulmonary, or renal complications; as well as long-term problems such as insufficient weight loss, vitamin deficiency, strictures, or ulcers. The patient understood all the risks, and was in agreement to proceed with surgery. DESCRIPTION OF PROCEDURE: After informed consent was obtained from the patient, the patient was given preoperative antibiotics, and was transferred to the operating room. After successful induction of general anesthesia, pneumatic compression devices were placed on both lower extremities. An upper endoscopy was performed next. The oropharynx and esophagus appeared to be within normal limits. There was no diaphragmatic hernia present. The stomach was entered. Then after all fluid and air were suctioned and the stomach was fully decompressed, the scope was withdrawn and secured in the mid esophagus. The patient was then prepped and draped in the usual sterile manner, and abdominal access was established at the right upper quadrant with the Chet technique. A 12 mm blunt port was inserted, and the abdomen was insufflated with CO2 to a pressure of 15 mmHg. Under direct visualization, additional ports were placed, specifically two 5 mm Versi-step ports to the left upper quadrant, and a 5 mm Versi-Step port to the right upper quadrant. 1% lidocaine plain was used to infiltrate all port sites as well as all fascia defects. Following that, the patient was placed in a steep reverse Trendelenburg position. An additional 5 mm port was placed to the right flank for the Mediflex retractor that was used to retract the left lobe of the liver. The gastro-esophageal fat pad was opened with the ultrasonic device (Thunderbeat, Olympus) and the anterior esophagus and hiatus were exposed. The angle of His was opened with the ultrasonic device the fundus of the stomach from any diaphragmatic and splenic attachments. I then opened the gastrocolic ligament between the transverse colon and the greater curvature of the stomach with the ultrasonic device to enter the lesser sac and facilitate the ligation of the short gastric vessels. I started at a mid-point along the greater curvature and using the Thunderbeat, all short gastric vessels were divided all the way to the angle of His until the left jayashree was completely dissected at its entirety. I then divided the gastro-colic ligament distally to a distance of about 3-4 cm proximal to the pylorus. There were extensive congenital adhesions between the pancreas and posterior gastric wall. Those were lysed completely with the ultrasonic device. Adhesiolysis took approximately 45 min to complete. ? The stomach was then divided transversely with four Endo CHACE-45 purple and three CHACE-60 articulating orange loads using the [employer] stapler and loads. Every effort was made that the gastric sleeve had a tubular shape and an even caliber throughout. Once the sleeve resection was completed, the staple line of the gastric sleeve was reinforced with Hemoclips. The resected stomach was retrieved without difficulty from the Chet port. A gastropexy was then performed in order to prevent postoperative GERD and partial gastric volvulus. Several interrupted 2.0 Surgidac sutures were placed between the sleeve's staple line and the previously divided greater omentum and gastro-colic ligament using the Endo-Stitch device. ?An upper endoscopy was performed. There was no narrowing at the GE junction. The scope was easily advanced all the way to the pylorus which was clearly visualized. There was no narrowing anywhere and the sleeve's caliber was even throughout. The sleeve's staple line was inspected and there was no evidence of ischemia, bleeding or dehiscence. At that point the gastroscope was withdrawn from the patient?s mouth while we were decompressing the bowel and the stomach from any remaining air. I looked into the lesser sac to see how the sleeve was situating and it was situating well. There was no bleeding from the staple line, spleen, or short gastric vessels. The Mediflex retractor was removed, and the undersurface of the liver was inspected and there was no bleeding. The patient was placed in supine position. I closed the fascial defect of the 12 mm port site with a figure of eight #1 Polysorb suture. Then 30cc Ropivacaine plain with 10 mg of Dexamethasone were used to infiltrate the fascial closure as well as all skin incisions. At this point, the abdomen was deflated, all ports were removed under direct vision, and no bleeding was noted from any of the port sites. The skin incisions were irrigated with saline and were closed with 4-0 absorbable monofilament sutures. Steri-Strips and OpSites were used to cover all incisions. The patient was extubated and was transferred in stable condition to the recovery room for further care. I was present and performed all drew parts of the procedure. Ms. Hanson was the assistant front office manager. There were no residents to assist with this case. Ferdinand Cowan MD, PhD, FACS Surgeon: Danial Cowan MD Anesthesia: GETA, local and other (TAP block) Was an Assembler Truck Trailer used for this Procedure?: No Assembler Truck Trailer: Yudelka Hanson Estimated blood loss (mL): 10 IV fluids (mL): 2,400 Urine output (mL): 0 (No Connelly to record output) Pathology: other (1) Stomach, 2) gastro-esophageal fat pad) Condition: stable Disposition: PACU
--- NOTE | 2025-06-21 09:50 | P.HPSUR_ITS ---
Pre-Procedural Eval Section A - 24 Hr Update-Section A only Date of Service: 06/21/25 The patient is an INPATIENT: No The patient has been examined within 24 hours of the surgical procedure. The History & Physical has been completed within 30 days and I have reviewed it.: Yes Section B - Complete if H&P > 30 days Chief Complaint: obesity Relevant Family History (Specify if Yes): No Relevant Social History: None Present Medications: None Medical History: No relevant PMH History of Previous Operations: No relevant previous surgery Allergies: Allergies Allergy/AdvReac Type Severity Reaction Status Date / Time amoxicillin Allergy Mild Itching Verified 06/13/25 16:20 doxycycline Allergy Mild Itching Verified 06/13/25 16:20 oxycodone Allergy Mild Itching Verified 06/13/25 16:20 Erythromycin Allergy Mild Itching Uncoded 06/08/25 10:58 Review of Systems Sugical H&P ROS: Negative: Constitution, Cardiovascular, Respiratory, Neurological, Psychiatric, Hem-Onc, Allergic/Immunologic, Gastrointestinal, Gen itourinary, Musculoskeletal, Integumentary, Endocrine and Eyes/Ears/Nose/Throat Exam Surgical H&P Exam: Normal: HEENT, Normal: Heart, Normal: Lungs, Normal: Extremities, Normal: Abdomen, Normal: Skin and Normal: Neurological Plan Diagnosis/Plan: Unchanged I have reviewed the history and physical and performed a pertinent physical examination on my patient. No changes have occurred unless specified. Time Spent With Patient Time: Total time managing care of this patient today ____ minutes.
--- NOTE | 2025-06-21 12:46 | PM.DS ---
DS: Providers Provider Date of Service: 06/22/25 Date of admission: 06/21/25 07:47 Date of discharge: 06/22/25 Primary care physician: Diana Rabago MD DS: Summary Hospital Course Hospital Course: ADMITTING DIAGNOSIS: obesity, OA, NIDDM, GERD, anxiety, HTN, HLD DISCHARGE DIAGNOSIS: same, s/p laparoscopic sleeve gastrectomy and gastropexy PAST SURGICAL HISTORY:? History of esophagogastroduodenoscopy (EGD) (09/27/24) History of back surgery (06/14/24) Hx of tonsillectomy History of cholecystectomy History of appendectomy PROCEDURE: upper endoscopy, laparoscopic sleeve gastrectomy and gastropexy DISCHARGE SUMMARY: History of Present Illness: The patient is a?60 year-old woman with a BMI of?34.6 kg/m2 and associated co-morbidities as described above. The patient had extensive work-up, lost?28.8 lbs preoperatively and was electively scheduled for laparoscopic, possible open sleeve gastrectomy and gastropexy. Risks and complications of the surgery were discussed with the patient in advance, particularly the possibility of , pulmonary embolism, anastomotic leak, bleeding, bowel injury, GERD, cardiac, renal or pulmonary complications. The patient understood all the risks and was in agreement with the surgical plan. Hospital Course: The patient underwent an uneventful laparoscopic sleeve gastrectomy with gastropexy on the day of admission. Postoperatively, the patient was transferred to the surgical floor. The patient received IV acetaminophen and IV Dilaudid for pain control. Patient was started on bariatric phase 1 diet POD #0. On postoperative day one, the patient was feeling well without nausea, vomiting, fevers, or tachycardia. The patient had some mild incisional pain and the abdomen was soft.? ? On the morning of postoperative day one, the patient was continued on 1 ounce of water or ice every half hour. During the day, the patient did fairly well, having some incisional pain, but able to ambulate adequately and to tolerate liquids well. Since the patient is doing well, we decided that the patient was ready to be discharged. The patient was given instructions to follow-up in office next week and to call the office for any fever over 101, persistent abdominal pain, nausea, vomiting, GERD, symptoms of DVT such as calf tenderness, or leg swelling, or pulmonary embolism such as chest pain or shortness of breath.? The patient was also instructed to drink 40-60 ounces of liquids per day using the 1-ounce cups. The patient had been given prescriptions for Tylenol for pain, Zofran prn for nausea, and pantoprazole and carafate previously. The patient was encouraged to ambulate and use the incentive spirometer. The patient was allowed to shower, but no baths, and encouraged to stay active at home. All of these instructions were given to the patient personally. All questions were answered and the patient understood all instructions, the instructions were also given to the patient in print. Time Attestation Discharge Coordination Time (in mins): 30 Quality: Safe Use of Opioids Does Pt have an Active Cancer Diagnosis on the Problem List?: No Quality: Stroke Does the patient have a stroke diagnosis?: No Physical Exam Vital Signs: Vital Signs: Last Vital Signs Temp 97.9 F 06/21/25 08:35 Pulse 75 06/21/25 08:35 Resp 16 06/21/25 08:35 BP 117/77 06/21/25 08:35 Pulse Ox 99 06/21/25 08:35 O2 Del Method Room Air 06/21/25 08:35 BMI result Body Mass Index 34.6 DS: Data Data Completed and Pending Pending studies at discharge: Pending at discharge 06/21/25 11:52 Surgical [PTH] Routine Labs on day of discharge: Laboratory Results - last 24 hr 06/21/25 08:47 POC Glucose 107 Discharge Plan Discharge Anticipated Discharge Date/Time: 06/21/25 12:42 Patient Disposition: Home, Self-Care Discharge Diagnosis: s/p laparoscopic sleeve gastrectomy with gastropexy Referrals: Diana Rabago MD [Primary Care Provider, Internal Medicine] - 1 Week Discharge Medications: Continued fluoxetine 40 mg capsule 40 mg PO DAILY fexofenadine 180 mg Tablet 180 mg PO DAILY fluticasone propion-salmeterol 500-50 mcg/dose blister with device 1 inh INHALATION BID docusate sodium 100 mg capsule 100 mg PO BID azelastine 137 mcg (0.1 %) spray,non-aerosol 1 spray intranasal DAILY albuterol sulfate 90 mcg/actuation HFA aerosol inhaler 1 inh INHALATION Q4H PRN (Reason: wheezing) fluticasone propionate [Flonase Allergy Relief] 50 mcg/actuation spray,suspension 1 spray intranasal DAILY Rx Instructions: administer into each nostril atorvastatin 80 mg tablet 80 mg PO BEDTIME montelukast 10 mg tablet 10 mg PO QPM diazepam 2 mg tablet 2 mg PO BID PRN (Reason: Muscle Spasm) ondansetron 4 mg tablet,disintegrating 4 mg PO Q12H Qty: 20 0RF Rx Instructions: Only take one every 12 hours as needed if you have nausea Held valacyclovir 500 mg tablet 500 mg PO DAILY Hold Instructions: Resume on 06/27/25. gabapentin 300 mg capsule 300 mg PO TID Hold Instructions: Resume on 06/27/25. hydrochlorothiazide 25 mg tablet 25 mg PO DAILY Hold Instructions: Resume on 06/22/25. Only resume according to parameters given by Dr. Cowan irbesartan 300 mg tablet 300 mg PO BEDTIME Hold Instructions: Resume on 06/22/25. Only resume according to parameters given by Dr. Cowan tramadol 50 mg tablet 50 mg PO DAILY PRN (Reason: Pain) Hold Instructions: Resume on 06/27/25. Discontinued naproxen 500 mg tablet 500 mg PO BID PRN (Reason: Pain) cholecalciferol (vitamin D3) 25 mcg (1,000 unit) tablet 25 mcg PO DAILY omeprazole 20 mg capsule,delayed release(/EC) 20 mg PO BID@0630,1630 acetaminophen 500 mg capsule 1,000 mg PO Q6H PRN (Reason: Pain) Trulicity 1.5 mg/0.5 mL pen injector 1.5 mg subcut .QWEEK ON WEDNESDAY metformin 500 mg tablet 500 mg PO BEDTIME Discharge Orders: Discharge Order (Routine); Ordered 06/22/25 Ordered By: Yudelka Hanson Activity on Discharge: No heavy lifting Stand Alone Forms: Patient Portal Discharge page Print Language: Kiswahili Care Plan Goals: weight loss Health Concerns: obesity Plan of Treatment: No tub baths, sex or returning to work until discussed at first post op appointment. No alcohol, tobacco or illegal drug use. Continue to use incentive spirometer hourly while awake. Walk in home for 5- 10 minutes every 2 hours during the first week. Wear abdominal binder with activity. Follow all meal plan instructions from your bariatric surgeon. Review bariatric handbook and call with any questions. Discharge Instructions 1. Please call your doctor or come back to the emergency room should any new symptoms arise. 2. Activity: abstain from alcohol,? limited stair climbing, no bending, no driving, no exercise, no illicit substances, no lifting, no sex, no tub bath, no work. 4. Diet: follow your bariatric surgeon's recommendations for advancing diet. 5. Dressing Change/Wound Care: Your incisions are covered with waterproof dressings. You can shower with these and pat dry. Do not rub over dressings or incisions. If the area is tender, you may apply an ice pack for short intervals (no more than 20 minutes on, followed by at least 20 minutes off). Do not apply heat. Do not use creams, lotions, or topical antibiotics unless instructed to do so by your surgeon. 6. Call your doctor if: - Your temperature exceeds 101.5 F - You experience excessive pain or swelling - You have an unexpected reaction to medication - You have excessive bleeding - You experience continued vomiting/nausea - Your incision begins to separate - Your incision shows signs of infection such as increased redness, swelling, excessive pain, heat, or drainage (light blood or clear fluid is normal) General instructions: No lifting greater than 10 lbs for the next 6 weeks. No driving within 24 hours of taking narcotic pain medications. If you do not move your bowels in the next 2 days, please take milk of magnesia over the counter. Please follow the post op diet and do not advance your diet until instructed by your surgeon or until you are seen in the office in about 1 week. Please walk around your home every hour or two to prevent blood clots from forming in your legs. You do not need to wake from sleeping to walk. Please sleep in a bed or couch to prevent kinking at the hips and knees. Please take your incentive spirometer (your lung round up ring hand) home with you and use it for the next few days to prevent pneumonias. You may shower; no hot tubs, baths or swimming pools. Please make sure you are consuming 40-60 ounces of total fluids per day. Avoid all carbonation. Please call the office with any questions or concerns such as increasing abdominal pain, fever, chills, shortness of breath, chest pain, leg pain or swelling, or redness or drainage from your incisions. Do not hesitate to contact the office with any questions at . The patient's medical history has been reviewed and they are considered low risk for post op DVT and therefore DVT prophylaxis is not considered necessary. Travel after surgery was reviewed. The patient has not disclosed any travel plans during the first 30 days after surgery and they have been advised that within the first 30 days after surgery any bus, plane, train or car travel over 2 hours in duration is contraindicated due to the possibility of developing blood clots from immobility. Any travel, needs to include periods of ambulation of 10 minutes in duration every 2 hours.? The patient was instructed to discuss any plans for travel during this period with their bariatric surgeon. Assessment: s/p laparoscopic sleeve gastrectomy with gastropexy
[2025-06-21 13:17] LABS: Hematocrit 32.1 % (37.0-47.0); Hemoglobin 10.8 g/dl (12.0-16.0)
[2025-06-21 13:28] LABS: Anion Gap 10 (12-20); Blood Urea Nitrogen 9 mg/dL (9-16); Calcium 9.7 mg/dL (8.4-10.2); Carbon Dioxide 27 mmol/L (22-29); Chloride 104 mmol/L (96-108); Creatinine Clr Calc Pharmacy 110.2; Estimated Glomerular Filt Rate > 60; Potassium 3.6 mmol/L (3.3-5.1); Sodium 137 mmol/L (135-145)
[2025-06-21] MEDS: Lactated Ringers 1,000 ML 100 ML IVCONT (15:00)
[2025-06-21 16:19] LABS: Glucose, Whole Blood 132 mg/dL (60-115)
[2025-06-21] MEDS: 0.9 % Sodium Chloride Flush 3 ML SYRINGE IVFLUSH (19:17)
[2025-06-21 20:38] LABS: Glucose, Whole Blood 133 mg/dL (60-115)
[2025-06-22] MEDS: Lactated Ringers 1,000 ML 100 ML IVCONT (00:55)
[2025-06-22 02:59] VITALS: BP 123/60; PULSE 64; RESP 18; TEMP 36.5; O2SAT 97
[2025-06-22 05:44] LABS: MANUAL DIFF FLAG NO
[2025-06-22 05:50] LABS: Hematocrit 30.8 % (37.0-47.0); Hemoglobin 10.5 g/dl (12.0-16.0); Imm Gran Abs Auto 0.02 X10*3/uL (0.00-0.03); Imm Gran Pct Auto 0.3 % (0.0-0.4); Lymphocytes Absolute Auto 1.2 X10*3/uL (1.2-4.9); Mean Corpuscular HGB Conc 34.1 g/dl (31.0-35.0); Mean Corpuscular Hemoglobin 30.2 pg (27.0-33.0); Mean Corpuscular Volume 88.5 fL (80.0-98.0); NRBC Abs Auto 0.000 X10*3/uL (0.0-0.012); NRBC Pct Auto 0.0 /100WBC (0.0-0.2); Platelet Count 245 X10*3/uL (160-400); Red Blood Count 3.48 X10*6/uL (4.20-5.50); White Blood Count 7.9 X10*3/uL (4.8-10.8)
[2025-06-22 06:10] LABS: Anion Gap 10 (12-20); Blood Urea Nitrogen 11 mg/dL (9-16); Calcium 9.0 mg/dL (8.4-10.2); Carbon Dioxide 27 mmol/L (22-29); Chloride 104 mmol/L (96-108); Creatinine Clr Calc Pharmacy 113.6; Estimated Glomerular Filt Rate > 60; Potassium 4.1 mmol/L (3.3-5.1); Sodium 137 mmol/L (135-145)
[2025-06-22 07:33] LABS: Glucose, Whole Blood 105 mg/dL (60-115)
[2025-06-22 07:50] VITALS: BP 119/59; PULSE 64; RESP 16; TEMP 36.4; O2SAT 97
[2025-06-22] MEDS: 0.9 % Sodium Chloride Flush 3 ML SYRINGE IVFLUSH (09:10)
--- NOTE | 2025-06-22 10:52 | MHC.CM.PN ---
PT TO [facility] HOME TODAY WITH NO SERVICES VIA PRIVATE TRANSPORT
[2025-06-22 11:23] LABS: Glucose, Whole Blood 101 mg/dL (60-115)
[2025-06-22] MEDS: Fluticasone/Vilanterol 200/25 BLST.W.DEV 1 PUFF INHALE (11:40)
[2025-06-22 11:41] VITALS: PULSE 64; RESP 16
[2025-06-22] MEDS: Azelastine HCl Nasal 137 MCG/Spray 30 ML 1 SPRAY NOSTRIL-B (11:41)
[2025-06-22 11:45] VITALS: BP 131/69; PULSE 75; RESP 16; TEMP 36; O2SAT 96
--- NOTE | 2025-06-22 12:10 | PM.PNGS ---
Subjective Subjective Date of Service: 06/22/25 Interval history: Pt feels well. Minimal pain at incisions. Denies nausea, tolerating bariatric stage 1 diet. Has ambulated and voided. Physical Exam Vital Signs: Vital Signs: Last Vital Signs Temp 96.8 F 06/22/25 11:45 Pulse 75 06/22/25 11:45 Resp 16 06/22/25 11:45 BP 131/69 06/22/25 11:45 Pulse Ox 96 06/22/25 11:45 O2 Del Method Room Air 06/22/25 11:45 O2 Flow Rate 8 06/21/25 12:32 BMI result Body Mass Index 34.6 Const: General: cooperative, comfortable and no acute distress Orientation/consciousness: patient oriented x3 GI: Other: soft, appropriately tender, nondistended, dressings c/d/i Neuro: General: patient oriented x3 Objective Data Active Medications Albuterol Sulfate (Albuterol Sulfate 90 Mcg 8 Gm Inhaler) 1 puff INHALE Q4H PRN PRN Reason: Wheezing Atorvastatin Calcium (Atorvastatin Calcium 80 Mg Tablet) 80 mg PO BEDTIME [facility] Last Admin: 06/21/25 19:17 Dose: 80 mg Documented By: JOHN Azelastine HCl (Azelastine Hcl Nasal 137 Mcg/[place] 30 Ml) 1 spray NOSTRIL-B DAILY [facility] Last Admin: 06/22/25 11:41 Dose: 1 spray Documented By: DAVID Comments: med not available at scheduled time. Dextrose (Dextrose 50 % 25 Gm/50 Ml Syringe) 25 gm IVPUSH Q15M PRN; Protocol PRN Reason: per Hypoglycemia Standing Ord. Diazepam (Diazepam 2 Mg Tablet) 2 mg PO BID PRN PRN Reason: Muscle Spasm Famotidine (Famotidine/Pf 20 Mg/2 Ml Vial) 20 mg IVPUSH BID [facility] Last Admin: 06/22/25 09:08 Dose: 20 mg Documented By: DAVID Fluoxetine HCl (Fluoxetine Hcl 20 Mg Capsule) 40 mg PO DAILY [facility] Last Admin: 06/22/25 09:08 Dose: 40 mg Documented By: DAVID Fluticasone Propionate (Fluticasone Propionate Nasal 16 Gm [place]) 1 spray NOSTRIL-B DAILY [facility] Last Admin: 06/22/25 11:41 Dose: 1 spray Documented By: DAVID Comments: med not available at scheduled time Fluticasone/Vilanterol (Fluticasone/Vilanterol 200/25 Blst.W.Dev) 1 puff INHALE RDAILY [facility] Last Admin: 06/22/25 11:40 Dose: 1 puff Documented By: LUKAS Glucose (Glucose Gel 15 Gm Gel..Gram.) 15 gm PO Q15M PRN; Protocol PRN Reason: per Hypoglycemia Standing Ord. Hydromorphone HCl (Hydromorphone Hcl 0.5 Mg/0.5 Ml Syringe) 0.25 mg IVPUSH Q4H PRN; Protocol PRN Reason: Pain, Severe (Pain Scale 7-10) Last Admin: 06/22/25 02:47 Dose: 0.25 mg Documented By: JOHN Lactated Ringer's (Lr) 1,000 mls @ 100 mls/hr IVCONT .Q10H [facility] Last Admin: 06/22/25 11:30 Dose: Not Given Documented By: DAVID Non-Admin Reason: patient being discharged Acetaminophen (Ofirmev) 1,000 mg in 100 mls @ 16.7 mls/hr IV .Q6H [facility] Last Infusion: 06/22/25 11:31 Dose: Infused Documented By: DAVID Insulin Human Lispro (Insulin Lispro 100 Unit/Ml 3 Ml Vial) 0 unit SUBCUT QIDACHS [facility]; Protocol Last Admin: 06/22/25 11:31 Dose: Not Given Documented By: DAVID Non-Admin Reason: No Insulin Coverage Loratadine (Loratadine 10 Mg Tablet) 10 mg PO DAILY [facility] Last Admin: 06/22/25 09:08 Dose: 10 mg Documented By: DAVID Metoclopramide HCl (Metoclopramide Hcl 10 Mg/2 Ml Vial) 10 mg IVPUSH Q6H PRN PRN Reason: Nausea Montelukast Sodium (Montelukast Sodium 10 Mg Tablet) 10 mg PO BEDTIME [facility] Last Admin: 06/21/25 19:17 Dose: 10 mg Documented By: JOHN Ondansetron HCl (Ondansetron Hcl 4 Mg/2 Ml Vial) 4 mg IVPUSH Q8H PRN PRN Reason: Nausea Sodium Chloride (0.9 % Sodium Chloride Flush 3 Ml Syringe) 3 ml IVFLUSH QSHIFT LEIDY Last Admin: 06/22/25 09:10 Dose: 3 ml Documented By: DAVID Labs 06/22/25 05:37 06/22/25 05:37 Labs: Laboratory Results - last 24 hr 06/21/25 06/21/25 06/21/25 13:02 16:12 20:32 MCV MCH MCHC RDW Plt Count MPV Immature Gran % (Auto) Neut % (Auto) Lymph % (Auto) [place] % (Auto) Eos % (Auto) Baso % (Auto) Lymph # (Auto) [place] # (Auto) Eos # (Auto) Baso # (Auto) Abs Immat Gran (auto) Absolute Neuts (auto) Absolute Nucleated RBC Nucleated RBC % (auto) Anion Gap 10 L Estim Creat Clear Calc 110.2 Estimated GFR > 60 POC Glucose 132 H 133 H Random Glucose 141 H Calcium 9.7 06/22/25 06/22/25 06/22/25 05:37 07:23 11:20 MCV 88.5 MCH 30.2 MCHC 34.1 RDW 15.0 Plt Count 245 MPV 9.3 L Immature Gran % (Auto) 0.3 Neut % (Auto) 77.7 H Lymph % (Auto) 15.8 L [place] % (Auto) 6.2 Eos % (Auto) 0.0 Baso % (Auto) 0.0 Lymph # (Auto) 1.2 [place] # (Auto) 0.5 Eos # (Auto) 0.0 Baso # (Auto) 0.0 Abs Immat Gran (auto) 0.02 Absolute Neuts (auto) 6.1 Absolute Nucleated RBC 0.000 Nucleated RBC % (auto) 0.0 Anion Gap 10 L Estim Creat Clear Calc 113.6 Estimated GFR > 60 POC Glucose 105 101 Random Glucose 111 Calcium 9.0 D Procedures Date of Service Date of Service: 06/22/25 Progress Note: A&P Assessment and plan (1) Obesity: Status: Acute (2) Status post sleeve gastrectomy: Status: Acute Plan s/p laparosopic sleeve gastrectomy with gastropexy Doing well, tolerating BS1 diet, communicated with Dr Cowan and indicates understanding of all instructions. Labs reviewed. Discharge today Time Spent With Patient Time: Total time managing care of this patient today __30__ minutes. Quality Stroke Does the patient have a stroke diagnosis?: No VTE Prior VTE?: No VTE Risk Level:: Surgical - low VTE Device Contraindication: N/A - Device Ordered VTE Drug Contraindication: Treatment Not Indicated
== END 2025-06-22 12:22 | disposition home or self-care (01) | DRG 403 ==
LOC: HO.SSSA 08:12 → HO.S3 14:00
PROVIDERS: Physician Assistant Surgical; Admitting Provider Surgery; PCP Internal Medicine; Visit Provider Surgery
PROC: 0DB64Z3 Excision of Stomach, Percutaneous Endoscopic Approach, Vertical (ICD-10-PCS; CPT 43845; principal; 2025-06-21 10:20)
DX: E66.01 Morbid (severe) obesity due to excess calories (principal); Q43.3 Congenital malformations of intestinal fixation; E11.9 Type 2 diabetes mellitus without complications; I11.9 Hypertensive heart disease without heart failure; J45.909 Unspecified asthma, uncomplicated; Z68.34 Body mass index [BMI] 34.0-34.9, adult; K21.9 Gastro-esophageal reflux disease without esophagitis; K76.0 Fatty (change of) liver, not elsewhere classified; Z87.891 Personal history of nicotine dependence; Z79.51 Long term (current) use of inhaled steroids; Z79.899 Other long term (current) drug therapy
CPT/HCPCS: 43775; 43659; 36415; 80048; 80053; 80061; 82947; 83036; 83525; 84443; 85014; 85018; 85025; 85610; 85730; 86140; 86850; 86900; 86901; 88304; 88305; 88307; 88342; 94640; A4649; C9145; J0131; J0690; J1100; J1171; J1308; J1956; J2003; J2250; J2405; J2704; J2795; J3010; J7120

== ENCOUNTER → 2025-06-21 07:47 | Outpatient (BNV) | payer OTHER, SELFPAY | PROVIDERS: Admitting Provider Surgery; PCP Internal Medicine; Visit Provider Surgery | DX: E66.9 Obesity, unspecified (principal); Z68.34 Body mass index [BMI] 34.0-34.9, adult | CPT/HCPCS: 43659; 43775 ==

== ENCOUNTER 2025-06-27 09:39 | Outpatient (AMB) | payer OTHER, SELFPAY ==
--- NOTE | 2025-06-27 09:38 | MHC.OFFVISWM ---
VS Expanded 06/27/25 09:52 BP 100/62 Blood Pressure Location Rt brachial Blood Pressure Position Sitting Pulse 87 Pulse Source Pulse Oximeter Temp 95.3 F L Temperature Source Temporal Artery Scan Pulse Oximetry 97 Oxygen Delivery Method Room Air Height 5 ft 7 in Weight 216 lb 9.6 oz BMI 33.9 Body Fat % 46.6 Body Fat Mass 101.0 Fat Free Mass 115.6 Visceral Fat Rating 13.0 Body Water % 37.8 Body Water Mass 81.8 Muscle Mass/Score 109.6 Basal Metabolic Rate/Score 1,623 Intake Visit Reasons: OV PO LSG 06/21/2025 Allergies amoxicillin Allergy (Mild, Verified 06/27/25 09:44) Itching doxycycline Allergy (Mild, Verified 06/27/25 09:44) Itching oxycodone Allergy (Mild, Verified 06/27/25 09:44) Itching Erythromycin Allergy (Mild, Uncoded 06/08/25 10:58) Itching Medication List - Last Reconciled 06/27/25 by PEREZ Lau albuterol sulfate 90 mcg/actuation 1 inh inhalation Q4H PRN atorvastatin 80 mg PO BEDTIME azelastine 1 spray intranasal DAILY diazepam 2 mg PO BID PRN docusate sodium 100 mg PO BID fexofenadine 180 mg PO DAILY fluoxetine 40 mg PO DAILY fluticasone propion-salmeterol 500-50 mcg/dose 1 inh inhalation BID fluticasone propionate 50 mcg/actuation (Flonase Allergy Relief) 1 spray intranasal DAILY gabapentin 300 mg PO TID Held on 06/22/25. Instructions: Resume on 06/27/25. hydrochlorothiazide 25 mg PO DAILY Held on 06/22/25. Instructions: Resume on 06/22/25. Only resume according to parameters given by Dr. Cowan irbesartan 300 mg PO BEDTIME Held on 06/22/25. Instructions: Resume on 06/22/25. Only resume according to parameters given by Dr. Cowan montelukast 10 mg PO QPM ondansetron 4 mg PO Q12H tramadol 50 mg PO DAILY PRN Held on 06/22/25. Instructions: Resume on 06/27/25. valacyclovir 500 mg PO DAILY Held on 06/22/25. Instructions: Resume on 06/27/25. HPI Comments Details: Pt is s/p LSG --. No pain. No nausea. Tolerating 3 Celebrate Rebuild shakes (10-12, 2-4 and 6-8), 1 scoop each in 8oz liquid. Hydration is adequate- has Gatorade zero and shake in office with her today. She did purchase vitamins but did not start yet. Has needed BP meds occasionally, sometimes half a pill and sometimes none. [facility] Medical History MACARIO (generalized anxiety disorder) Back pain Respiratory tract congestion with cough Environmental allergies Seasonal allergies History of cardiac murmur as a child Non-insulin dependent type 2 diabetes mellitus GERD (gastroesophageal reflux disease) Herpes Anxiety DJD (degenerative joint disease) Hyperlipidemia BMI 35.0-35.9,adult Obesity Arthritis Pre-diabetes HTN (hypertension) Surgical History (Updated 06/27/25 @ 09:46 by Mili Myrick CMA) Status post sleeve gastrectomy History of esophagogastroduodenoscopy (EGD) (09/27/24) History of back surgery (06/14/24) Hx of tonsillectomy History of cholecystectomy History of appendectomy Family History Mother Cancer Hypertension Abdominal seizure Father Family history unknown Social History Household Members: Spouse Housing: House Are you a primary clinical care manager to a significant other at home: No Do you presently have visiting nurse or other home services: No Alcohol intake: current Alcohol intake frequency: holidays/special occasions only Alcohol type: wine Patient Tobacco Use Status: Former Tobacco user Tobacco use type: Cigarette Second Hand Smoke Exposure: No Substance Use Type: Former Substance User and Marijuana Current occupational status: employed 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 , 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 Physical Exam Const General: cooperative, comfortable and no acute distress Orientation/consciousness: patient oriented x3 GI Other: soft, nontender, nondistended, steri-strips c/d/i Neuro General: patient oriented x3 Assessment & Plan Assessment & Plan (1) Status post sleeve gastrectomy: Code(s): Z90.3 - Acquired absence of stomach [part of] Category: Surgical (2) Obesity: Code(s): E66.9 - Obesity, unspecified Category: Medical Qualifiers: Obesity type: due to excess calories Obesity classification: adult class 2 (BMI 35 - 39.9) Serious obesity comorbidity presence: with serious comorbidity Body mass index: BMI 35.0-35.9 Qualified Code(s): E66.812 - Obesity, class 2; E66.01 - Morbid (severe) obesity due to excess calories; Z68.35 - Body mass index [BMI] 35.0-35.9, adult Plan May shower tomorrow but no bath or submersion of abdomen in water. May start exercise in tomorrow.? No abdominal exercises x 6 weeks. Work note provided for pt to be restricted in heavy lifting until 6w postop. Abdominal binder for the next 2 weeks with activity or exercise. Continue meal plan per Dr Ro until next f/u in 5 weeks. Reviewed pantoprazole and carafate dosing. Reminded of the pace of drinking 2 mL/min or 1oz per 15 min. Will be emailed link for post op video for review. Reviewed pt's home meds with her- continue to dose BP meds according to Dr Ro's parameters, hold metformin and Trulicity.
[2025-06-27 09:52] VITALS: BP 100/62; PULSE 87; TEMP 35.2; O2SAT 97; BMI 33.9
--- OUTSIDE RECORDS SUMMARY | 2025-06-27 11:24 | XMS_ITS | Patient Health Record ---
Author Organization [facility] Address [address] [place] [address] Care Team Providers Care Education General Manager Name Role Phone Diana Rabago MD Primary Care Provider Unavailab Flash Li Unavailable [phone] Allergies Allergen (clinical drug ingredient) Drug/Non Drug [...] W/U Status Risk Notes Problem Achilles bursitis (904834024) Achilles Tendonitis Bursitis (726.71) Active confirmed Problem Onychomycosis (274194666) Onychomycosis (110.1) Active confirmed Problem Disorder of sebaceous gland (6993088) Xerosis (706.8) Active confirmed Plan Of Treatment Pending Test Test Name Order Date X ray : Foot, right 3V 07/06/2011 Insurance Providers Payer Name Payer Address Payer Phone Subscriber Number Group Number Insured Name Patient Relationship to Insured Coverage Start Date Coverage End Date [facility] [address] [place] [address] [phone] [id number] Lisa Villatoro Self - patient is the insured Medical (General) History Medical History History ICD Code Arthritis back, hip, knee pain cataracts lupus chicken pox CAD Surgical History Surgery Date(Month/Year) gall bladder 2004
== END 2025-06-27 10:31 | disposition home or self-care (01) ==
PROVIDERS: PCP Internal Medicine; Visit Provider Physician Assistant Surgical
DX: E66.9 Obesity, unspecified (principal); Z68.33 Body mass index [BMI] 33.0-33.9, adult; Z90.3 Acquired absence of stomach [part of]; Z98.84 Bariatric surgery status
CPT/HCPCS: 99024

== ENCOUNTER 2025-06-28 10:09 | Outpatient (AMB) | payer OTHER, SELFPAY ==
--- NOTE | 2025-06-28 10:00 | MHC.WMTHER ---
Intake Intake Visit Reasons: TV PO LSG 06/21/2025 Allergies amoxicillin Allergy (Mild, Verified 06/27/25 09:44) Itching doxycycline Allergy (Mild, Verified 06/27/25 09:44) Itching oxycodone Allergy (Mild, Verified 06/27/25 09:44) Itching Erythromycin Allergy (Mild, Uncoded 06/08/25 10:58) Itching PFSH Medical History MACARIO (generalized anxiety disorder) Back pain Respiratory tract congestion with cough Environmental allergies Seasonal allergies History of cardiac murmur as a child Non-insulin dependent type 2 diabetes mellitus GERD (gastroesophageal reflux disease) Herpes Anxiety DJD (degenerative joint disease) Hyperlipidemia BMI 35.0-35.9,adult Obesity Arthritis Pre-diabetes HTN (hypertension) Surgical History (Updated 06/27/25 @ 09:46 by Mili Myrick CMA) Status post sleeve gastrectomy History of esophagogastroduodenoscopy (EGD) (09/27/24) History of back surgery (06/14/24) Hx of tonsillectomy History of cholecystectomy History of appendectomy Family History Mother Cancer Hypertension Abdominal seizure Father Family history unknown Social History Household Members: Spouse Housing: House Are you a primary career resource specialist to a significant other at home: No Do you presently have visiting nurse or other home services: No Alcohol intake: current Alcohol intake frequency: holidays/special occasions only Alcohol type: wine Patient Tobacco Use Status: Former Tobacco user Tobacco use type: Cigarette Second Hand Smoke Exposure: No Substance Use Type: Former Substance User and Marijuana Current occupational status: employed 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 Weight on the day of surgery was 216 lbs; current weight is 214 lbs. Patient denies pain or any difficulties with recovery. She reports tolerating the liquid diet well, with a goal of 40?60 oz per day; currently consuming 3 shakes plus additional liquids, totaling 43 oz daily. Mood is good. She has support from her . Denies hunger, though notes occasional food-related thoughts. Objective: Patient presented for a behavioral health post-operative follow-up. A guided emotional check-in was completed to assess current functioning, recovery, mood, and emotional state. Psychoeducation was provided regarding the emotional and psychological adjustments following bariatric surgery. The session included discussion on differentiating hunger from cravings or food thoughts, exploring underlying triggers, and developing strategies to support a positive mindset. Mindfulness techniques were reviewed to help the patient remain attuned to physical and emotional needs while maintaining adherence to post-operative guidelines. The PHQ-9 was administered to screen for depressive symptoms and no concerns were identified. The importance of following Weight Management Program (WMP) recommendations?including appropriate pacing of fluid intake, adherence to meal and exercise plans?was reinforced. Long-term success strategies and available program resources were discussed. The patient was encouraged to join the program?s Facebook group for ongoing support and engagement with community events. Assessment/Response: Mental status: WNL Risk reported/identified: None Questionnaires PHQ-9 Over the last 2 weeks, how often have you been bothered by any of the following problems? 1. Little interest or pleasure in doing things: not at all 2. Feeling down, depressed, or hopeless: not at all 3. Trouble falling or staying asleep, or sleeping too much: not at all 4. Feeling tired or having little energy: not at all 5. Poor appetite or overeating: not at all 6. Feeling bad about yourself - or that you are a failure or have let yourself or your family down: not at all 7. Trouble concentrating on things, such as reading the newspaper or watching television: not at all 8. Moving or speaking so slowly that other people could have noticed. Or the opposite - being so fidgety or restless that you have been moving around a lot more than usual: not at all 9. Thoughts that you would be better off or of hurting yourself in some way: not at all Total score: 0 Depression Screening Interpretation: Negative Depression Screening Done: Yes 84232 - PHQ-9 Billing: Yes Source: Developed by Drs. Wang Prado, Shivani Alvarez, Giacomo Ladd and colleagues, with an educational evelyn from [employer]. Assessment & Plan Assessment & Plan (1) Adjustment disorder, unspecified: Code(s): F43.20 - Adjustment disorder, unspecified Plan No safety concerns or issues were identified that would necessitate behavioral health monitoring. The patient declined further visits but is aware of the available behavioral health support if needed in the future. Telehealth Telehealth Telehealth Platform: zanda Location of provider rendering services: other (Home office. [place], [place]) Location of patient: address on file Patient Identification confirmed using: Name, : Yes Telehealth method: voice only Patient verbally consented to treatment: Yes Patient verbally consented to billing insurance company: Yes Patient informed of any privacy concerns related to visit: Yes Minutes spent on Phone/Video with Pt.: 25 Coding Level of Care Code Established Pt Tele Psytx 30 mins (62521) Patient Type Established Diagnoses Adjustment disorder, unspecified F43.20 Additional Codes PHQ-9 - 93953 - PHQ-9 Billing: Yes ([id number]) Time Spent (min) 25
--- OUTSIDE RECORDS SUMMARY | 2025-06-28 12:00 | XMS_ITS | Patient Health Record ---
Author Organization [facility] Address [address] [place] [address] Care Team Providers Care Script Girl Name Role Phone Diana Rabago MD Primary Care Provider Unavailab Flash Li Unavailable [phone] Allergies Allergen (clinical drug ingredient) Drug/Non Drug [...] W/U Status Risk Notes Problem Achilles bursitis (977047173) Achilles Tendonitis Bursitis (726.71) Active confirmed Problem Onychomycosis (351487381) Onychomycosis (110.1) Active confirmed Problem Disorder of sebaceous gland (5512971) Xerosis (706.8) Active confirmed Plan Of Treatment Pending Test Test Name Order Date X ray : Foot, right 3V 07/06/2011 Insurance Providers Payer Name Payer Address Payer Phone Subscriber Number Group Number Insured Name Patient Relationship to Insured Coverage Start Date Coverage End Date [facility] [address] [place] [address] [phone] [id number] Lisa Villatoro Self - patient is the insured Medical (General) History Medical History History ICD Code Arthritis back, hip, knee pain cataracts lupus chicken pox CAD Surgical History Surgery Date(Month/Year) gall bladder 2004
== END 2025-06-28 10:35 | disposition home or self-care (01) ==
LOC: HO.HBST 10:09
PROVIDERS: PCP Internal Medicine; Visit Provider Counselor Mental Health
DX: F43.20 Adjustment disorder, unspecified (principal)
CPT/HCPCS: 90832

== ENCOUNTER 2025-08-17 09:18 | Outpatient (AMB) | payer OTHER, SELFPAY ==
--- NOTE | 2025-08-17 09:03 | A.OFFVIS_ITS ---
VS Expanded 08/17/25 09:05 Height 5 ft 7 in Weight 208 lb 8 oz BMI 32.7 Intake Visit Reasons: TV PO LSG 06/21/2025 Allergies amoxicillin Allergy (Mild, Verified 06/27/25 09:44) Itching doxycycline Allergy (Mild, Verified 06/27/25 09:44) Itching oxycodone Allergy (Mild, Verified 06/27/25 09:44) Itching Erythromycin Allergy (Mild, Uncoded 06/08/25 10:58) Itching Medication List - Last Reconciled 08/17/25 by PEREZ Lau albuterol sulfate 90 mcg/actuation 1 inh inhalation Q4H PRN atorvastatin 80 mg PO BEDTIME azelastine 1 spray intranasal DAILY diazepam 2 mg PO BID PRN docusate sodium 100 mg PO BID fexofenadine 180 mg PO DAILY fluoxetine 40 mg PO DAILY fluticasone propion-salmeterol 500-50 mcg/dose 1 inh inhalation BID fluticasone propionate 50 mcg/actuation (Flonase Allergy Relief) 1 spray intranasal DAILY gabapentin 300 mg PO TID Held on 06/22/25. Instructions: Resume on 06/27/25. hydrochlorothiazide 25 mg PO DAILY Held on 06/22/25. Instructions: Resume on 06/22/25. Only resume according to parameters given by Dr. Cowan irbesartan 300 mg PO BEDTIME Held on 06/22/25. Instructions: Resume on 06/22/25. Only resume according to parameters given by Dr. Cowan montelukast 10 mg PO QPM ondansetron 4 mg PO Q12H tramadol 50 mg PO DAILY PRN Held on 06/22/25. Instructions: Resume on 06/27/25. valacyclovir 500 mg PO DAILY Held on 06/22/25. Instructions: Resume on 06/27/25. HPI Comments Details: This?is a?60?yo F who is s/p LSG 06/21/2025. Presents for 7 week post op visit. Weight at last visit on 06/27/2025 was 216.6 pounds; weight today is 208.8 pounds, representing a 9.8 pound weight loss with a BMI today of 32.7.? No complaints of nausea, emesis, abdominal pain or reflux, or constipation. Has been taking half her BP pill, sometimes none. Present meal plan includes: 2-3 Celebrate protein shakes 1 protein bar 1 meal of 3f chicken, 3f broccoli has tried cottage cheese and tolerated Exercise routine includes: treadmill (despite having some back pain)- 6-7x/week for 30 min [facility] Medical History (Updated 06/30/25 @ 00:00 by Background Daemon) MACARIO (generalized anxiety disorder) Back pain Respiratory tract congestion with cough Environmental allergies Seasonal allergies History of cardiac murmur as a child Non-insulin dependent type 2 diabetes mellitus GERD (gastroesophageal reflux disease) Herpes Anxiety DJD (degenerative joint disease) Hyperlipidemia BMI 35.0-35.9,adult Obesity Arthritis Pre-diabetes HTN (hypertension) Surgical History (Updated 06/27/25 @ 09:46 by Mili Myrick CMA) Status post sleeve gastrectomy History of esophagogastroduodenoscopy (EGD) (09/27/24) History of back surgery (06/14/24) Hx of tonsillectomy History of cholecystectomy History of appendectomy Family History Mother Cancer Hypertension Abdominal seizure Father Family history unknown Social History Household Members: Spouse Housing: House Are you a primary home care physical therapist to a significant other at home: No Do you presently have visiting nurse or other home services: No Alcohol intake: current Alcohol intake frequency: holidays/special occasions only Alcohol type: wine Patient Tobacco Use Status: Former Tobacco user Tobacco use type: Cigarette Second Hand Smoke Exposure: No Substance Use Type: Former Substance User and Marijuana Current occupational status: employed 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 , 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 Telehealth Telehealth Telehealth Platform: Telephone Location of provider rendering services: other Location of patient: address on file Patient Identification confirmed using: Name, : Yes Telehealth method: voice only Patient verbally consented to treatment: Yes Patient verbally consented to billing insurance company: Yes Patient informed of any privacy concerns related to visit: Yes Minutes spent on Phone/Video with Pt.: 12 Assessment & Plan Assessment & Plan (1) Status post sleeve gastrectomy: Code(s): Z90.3 - Acquired absence of stomach [part of] Category: Surgical (2) Obesity: Code(s): E66.9 - Obesity, unspecified Category: Medical Qualifiers: Obesity type: due to excess calories Obesity classification: adult class 2 (BMI 35 - 39.9) Serious obesity comorbidity presence: with serious comorbidity Body mass index: BMI 35.0-35.9 Qualified Code(s): E66.812 - Obesity, class 2; E66.01 - Morbid (severe) obesity due to excess calories; Z68.35 - Body mass index [BMI] 35.0-35.9, adult Plan Pt to continue meal plan per Dr Ro, we discussed not introducing foods like oatmeal which she asked about- continue high protein meal plan, don't make smoothies with avocado, only take in what is prescribed. No restrictions on exer cise, does not need to wear binder. Continue PPI and carafate for 1 more month, can d/c all reflux meds at that point and monitor symptoms (she was previously on omeprazole). RTC in Nov for previously scheduled visit.
[2025-08-17 09:05] VITALS: BMI 32.7
--- OUTSIDE RECORDS SUMMARY | 2025-08-17 10:27 | XMS_ITS | Patient Health Record ---
Author Organization [facility] Address [address] [place] [address] Care Team Providers Care Facilities Supervisor Name Role Phone Diana Rabago MD Primary Care Provider Unavailab Flash Li Unavailable [phone] Allergies Allergen (clinical drug ingredient) Drug/Non Drug [...] W/U Status Risk Notes Problem Achilles bursitis (417398742) Achilles Tendonitis Bursitis (726.71) Active confirmed Problem Onychomycosis (869822278) Onychomycosis (110.1) Active confirmed Problem Disorder of sebaceous gland (1696494) Xerosis (706.8) Active confirmed Plan Of Treatment Pending Test Test Name Order Date X ray : Foot, right 3V 07/06/2011 Insurance Providers Payer Name Payer Address Payer Phone Subscriber Number Group Number Insured Name Patient Relationship to Insured Coverage Start Date Coverage End Date [facility] [address] [place] [address] [phone] [id number] iLsa Villatoro Self - patient is the insured Medical (General) History Medical History History ICD Code Arthritis back, hip, knee pain cataracts lupus chicken pox CAD Surgical History Surgery Date(Month/Year) gall bladder 2004
--- OUTSIDE RECORDS SUMMARY | 2025-08-17 10:28 | XMS_ITS ---
Author Organization [facility] Care Team Providers Care Shipping Weigher Name Role Phone Anderson, Darlene Unavailable Unavailable Tanja Lemus Unavailable Unavailable Trina Arias Unavailable Unavailable Jennifer Lynch Unavailable Unavailable Alyssa Mahajan Unavailable Unavailable Tatyana Lewis Unavailable Unavailable Ian Fitch Unavailable Unavailable Allergies and adverse reactions Code CodeSystem Substance Reaction Severity StartDate Concern Status 723 RXNORM Amoxicillin Unknown 06/29/2024 active angiotensin converting enzyme inhibitors Unknown 06/29/2024 active Bactrim Unknown 06/29/2024 active 2582 RXNORM Clindamycin Unknown 06/29/2024 active 3640 RXNORM Doxycycline Unknown 06/29/2024 active 4053 RXNORM Erythromycin Unknown 06/29/2024 active 25899 RXNORM Levaquin Unknown 06/29/2024 active 7804 RXNORM oxyCODONE Unknown 06/29/[address] Peanuts Unknown 06/29/2024 active Percocet Unknown 06/29/[address] Seafood Unknown 06/29/2024 active Care Team Name Role Address Phone Organization Dates Tanja Lemus PCP [address], [place], [address], [facility] (Office): [facility] 06/29/2024 - 07/07/2024 Darlene Anderson [address], [place], [address], [facility] (Office): [facility] 06/29/2024 - 07/07/2024 Trina Arias [address] [place], [address], [place] (Office): : [facility] 06/29/2024 - 07/07/2024 Jennifer Lynch [address], [place], [address], [place] (Office): [facility] 06/29/2024 - 07/07/2024 Alyssa Mahajan [address] [place], [address], [place] (Office): : [facility] 06/29/2024 - 07/07/2024 Tatyana Lewis [address] [place] [address], [address], [place] (Office): [facility] 06/29/2024 - 07/07/2024 aIn Fitch [address] [place], [address], [place] (Office): : [facility] 06/29/2024 - 07/07/2024 Immunizations Immunization Status Vaccine Details Vaccine Code CodeSystem Date Notes SARS-COV-2 (COVID-19) completed SARS-COV-2 (COVID-19) vaccine, mRNA, spike protein, LNP, preservative free, 30 mcg/0.3mL dose, xin-sucrose formulation Step 1 of Multi-step with next step required 217 CVX created date: 07/04/2024 administere d date: 01/20/2021 SARS-COV-2 (COVID-19) completed SARS-COV-2 (COVID-19) vaccine, mRNA, spike protein, LNP, preservative free, 30 mcg/0.3mL dose, xin-sucrose formulation Step 1 of Multi-step with next step required 217 CVX created date: 07/04/2024 administere d date: 12/30/2020 Prevnar 20 Pneumococcal conjugate (PCV20) completed Pneumococcal conjugate vaccine 20-valent (PCV20), polysaccharide [id number] conjugate, adjuvant, preservative free 216 CVX created date: 07/04/2024 administere d date: 10/19/2022 SARS-COV-2 (COVID-19 BOOSTER) completed SARS-COV-2 (COVID-19) vaccine, mRNA, spike protein, LNP, bivalent, preservative free, 10 mcg/0.2 mL dose 230 CVX created date: 07/04/2024 administere d date: 08/05/2023 SARS-COV-2 (COVID-19 BOOSTER) completed SARS-COV-2 (COVID-19) vaccine, mRNA, spike protein, LNP, bivalent, preservative free, 30 mcg/0.3 mL dose, xin-sucrose formulation 300 CVX created date: 07/04/2024 administere d date: 06/26/2022 SARS-COV-2 (COVID-19 BOOSTER) completed SARS-COV-2 (COVID-19) vaccine, mRNA, spike protein, LNP, preservative free, 30 mcg/0.3mL dose 208 CVX created date: 07/04/2024 administere d date: 08/26/2021 influenza, unspecified formulation completed influenza virus vaccine, unspecified formulation 88 CVX created date: 07/04/2024 administere d date: 08/05/2023 Mental Status Section Date Assessment Total Score Description 07/07/2024 BIMS 15 cognitively int act CAM 0 No delirium ind icated PHQ-9 00 07/05/2024 BIMS 15 cognitively int act CAM 0 No delirium ind icated PHQ-9 00 Insurance Providers Problems Problem # Description Date of onset Resolved Date Code CodeSystem Concern Status 1 MUSCLE WEAKNESS (GENERALIZED) [address] active 2 UNSTEADINESS ON FEET [address] active 3 ANEMIA, UNSPECIFIED [address] active 4 ENCOUNTER FOR SURGICAL AFTERCARE FOLLOWING SURGERY ON THE NERVOUS SYSTEM [address] active 5 ESSENTIAL (PRIMARY) HYPERTENSION [address] active 6 GASTRO-ESOPHAGEAL REFLUX DISEASE WITHOUT ESOPHAGITIS [address] active 7 GENERALIZED ANXIETY DISORDER [address] active 8 HERPESVIRAL INFECTION, UNSPECIFIED [address] active 9 HYPERLIPIDEMIA, UNSPECIFIED [address] active 10 INTERVERTEBRAL DISC DISORDERS WITH RADICULOPATHY, LUMBAR REGION [address] active 11 OBSTRUCTIVE SLEEP APNEA (ADULT) (PEDIATRIC) [address] active 12 SPONDYLOLISTHESIS, LUMBAR REGION [address] active 13 TYPE 2 DIABETES MELLITUS WITH DIABETIC NEUROPATHY, UNSPECIFIED [address] active 14 TYPE 2 DIABETES MELLITUS WITHOUT COMPLICATIONS [address] active 15 UNSPECIFIED ASTHMA, UNCOMPLICATED [address] active Reason for Referral No Reasons for Referral Entered Social History Social History Observation Description Start Date End Date Code Code System Current Smoking Status Tobacco smoking consumption unknown 033475553 SNOMED CT Sex Assigned At Female 1965 [address]42-5 [facility] Gender Identity Sexual Orientation Vital Signs Code Code System Vitals Name Values and Units Timing Information 72353-8 LOINC Pain Level Value=0.0 07/07/2024 2339-0 LOINC Blood Sugar Kfcam=209.0 Units=mg/dL 07/07/2024 9279-[facility] Respiratory Rate Value=18.0 Units=/m in 07/06/2024 8462-4 LOINC Blood Pressure-Diastolic Value=62 Un its=mmHg 07/06/2024 8480-6 LOINC Blood Pressure-Systolic Zcvgq=355 Un its=mmHg 07/06/2024 8310-5 LOINC Body Temperature Value=97.0 Units= F 07/06/2024 8867-4 [facility] Heart rate Value=78.0 Units=/min 33281-4 [facility] O2 % dC Oximetry Value=97.0 Units= % 07/06/2024 31643-1 [facility] Weight Rjxlg=199.0 Units=Lbs 8302-2 [facility] Height Value=67.0 Units=Inches 07/03/2024
== END 2025-08-17 09:19 | disposition home or self-care (01) ==
LOC: HO.HBS 09:18
PROVIDERS: PCP Internal Medicine; Visit Provider Physician Assistant Surgical
DX: E66.9 Obesity, unspecified (principal); Z68.32 Body mass index [BMI] 32.0-32.9, adult; Z90.3 Acquired absence of stomach [part of]; Z98.84 Bariatric surgery status
CPT/HCPCS: 99024

== ENCOUNTER 2025-09-19 13:05 | Outpatient (REF) | payer OTHER, SELFPAY ==
--- NOTE | ~2025-09-19 | XR_ITS ---
XR KNEE ADRIANO 3V HISTORY: Bilateral knee pain. COMPARISON: Left knee 02/14/2021. TECHNIQUE: AP view bilateral knees standing, lateral, tunnel, and patellofemoral views bilateral knees. FINDINGS: RIGHT KNEE: No fracture, dislocation, or suspicious bone lesion. Tricompartmental osteoarthrosis, moderate in the lateral compartment, and milder in the medial and patellofemoral compartments. Spurring of the lateral tibial spine. Normal patellar alignment. No abnormal patellar tilt. Mild superior patellar enthesopathy. No evidence of joint effusion. Soft tissues demonstrate vascular calcifications but are otherwise normal. LEFT KNEE: No fracture, dislocation, or suspicious bone lesion. Tricompartmental osteoarthrosis, moderate in the medial compartment, and milder in the lateral and patellofemoral compartments. Spurring of the lateral tibial spine. Normal patellar alignment. No abnormal patellar tilt. Mild superior patellar enthesopathy. No evidence of joint effusion. Soft tissues demonstrate vascular calcifications but are otherwise normal. XR/XR Knee Adriano 4V IMPRESSION: RIGHT KNEE: 1. No acute bony or soft tissue abnormalities. No joint effusion. 2. 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 LEFT KNEE: 1. No acute bony or soft tissue abnormalities. No joint effusion. 2. Tricompartmental osteoarthritis, moderate in the medial compartment. Electronically signed by: Chon Lafleur MD 09/19/2025 01:56 PM JAYLYN
--- OUTSIDE RECORDS SUMMARY | 2025-09-19 20:15 | XMS_ITS | Patient Health Record ---
Author Organization [facility] Address [address] [place] [address] Care Team Providers Care Medical Research Tech Name Role Phone Diana Rabago MD Primary Care Provider Unavailab Flash Li Unavailable [phone] Allergies Allergen (clinical drug ingredient) Drug/Non Drug [...] W/U Status Risk Notes Problem Achilles bursitis (684105864) Achilles Tendonitis Bursitis (726.71) Active confirmed Problem Onychomycosis (333506960) Onychomycosis (110.1) Active confirmed Problem Disorder of sebaceous gland (0590575) Xerosis (706.8) Active confirmed Plan Of Treatment Pending Test Test Name Order Date X ray : Foot, right 3V 07/06/2011 Insurance Providers Payer Name Payer Address Payer Phone Subscriber Number Group Number Insured Name Patient Relationship to Insured Coverage Start Date Coverage End Date [facility] [address] [place] [address] [phone] [id number] Lisa Villatoro Self - patient is the insured Medical (General) History Medical History History ICD Code Arthritis back, hip, knee pain cataracts lupus chicken pox CAD Surgical History Surgery Date(Month/Year) gall bladder 2004
== END 2025-09-19 13:06 | disposition home or self-care (01) ==
LOC: HO.XRAY 13:05
PROVIDERS: PCP Internal Medicine; Visit Provider Nurse Practitioner
DX: M25.561 Pain in right knee (principal); M25.562 Pain in left knee
CPT/HCPCS: 73564

== ENCOUNTER → 2025-09-19 13:09 | Outpatient (BNV) | payer OTHER, SELFPAY | PROVIDERS: PCP Internal Medicine; Visit Provider Radiology Diagnostic Radiology | DX: M17.0 Bilateral primary osteoarthritis of knee (principal) | CPT/HCPCS: 73564 ==

== ENCOUNTER 2025-09-24 13:53 | Outpatient (AMB) | payer OTHER, SELFPAY ==
--- OUTSIDE RECORDS SUMMARY | 2025-09-18 23:59 | XMS_ITS | Continuity of Care Document ---
Author Organization 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 [address] [place], [place] [address] Attending Physician: Luis Miguel Lawler MD Referring Physician: Diana Rabago MD Encounter Type: Office Visit Allergies, Adverse Reactions, Alerts Substance Criticality Severity Reaction Reaction Severity Status doxycycline rash Active clindamycin Active erythromycin rash Active amoxicillin rash Active angiotensin converting enzym e inhibitors COUGH Active Percocet itchy Active Levaquin rash Active Bactrim rash Active Peanuts Itch Active Seafood Itch Active oxyCODONE itchy Active Functional Status Functional Status Assessment Assessment Assessment Component Result Effecti ve Date Disability status [CUBS] I'm Building Capacity - I have an asymptomatic condition controlled by services or medication 09/11/25 Do you have serious difficulty walking or climbing stairs Yes 09/11/25 Do you need any additional assistance or accommodations during your visit No 09/11/25 Do you have difficul ty dressing or bathing Yes 09/11/25 Because of a physica l, mental, or emotional condition, do you have difficulty doing errands alone such as visiting a physician's office or shopping No 09/11/25 Are you deaf, or do you have serious difficulty hearing No 09/11/25 Difficulty communica ting in usual language No 09/11/25 Are you blind, or do you have serious difficulty seeing, even when wearing glasses Yes 09/11/25 Difficulty Reading O r Writing No 09/11/25 Because of a physica l, mental, or emotional condition, do you have serious difficulty concentrating, remembering, or making decisions No 09/11/25 Immunizations Given and Recorded Vaccine Date Status Refusal Reason influenza virus vaccine, inactivated 1 07/17/25 Gi queta influenza virus vaccine, inactivated 07/18/24 Give n influenza virus vaccine, inactivated 08/05/23 Hi rded influenza virus vaccine, inactivated 06/26/22 Hi rded influenza virus vaccine, inactivated 2 09/08/21 Gi queta influenza virus vaccine, inactivated 07/30/20 Give n influenza virus vaccine, inactivated 07/05/18 Give n influenza virus vaccine, inactivated 3 08/24/17 Gi queta influenza virus vaccine, inactivated 08/25/16 Give n influenza virus vaccine, inactivated 4 07/11/13 Gi queta influenza virus vaccine, inactivated 5 04/12/13 Gi queta influenza virus vaccine, inactivated 6 08/11/11 Gi queta SARS-CoV-2(COVID-19)mRNA-LNP vac([id number]) 08/05/23 Recorded pneumococcal 20-valent conjugate vaccine 10/19/22 Given [id number] 12y+ bivalent booster vax 06/26/22 Recorded SARS-CoV-2 (COVID-19) mRNA BNT-162b2 vac 08/26/21 Recorded SARS-CoV-2 (COVID-19) mRNA BNT-162b2 vac 01/20/21 Recorded SARS-CoV-2 (COVID-19) mRNA BNT-162b2 vac 12/30/20 Recorded Influenza Virus Vaccine (oldterm) 07/19/19 Recorde d Influenza Virus Vaccine (oldterm) 7 08/09/08 Given tetanus/diphtheria/pertussis, acel(Tdap) 8 10/25/15 Given FluLaval (oldterm) 07/30/10 Given tetanus-diphtheria toxoids (Td) 11/16/05 Given Pneumococcal Vaccine (oldterm) 01/26/05 Given 1Result Comment: [facility] [id number] 2Result Comment: [facility] [id number] 3Result Comment: [08/24/2017] [facility] [id number] 4Result Comment: [07/11/2013] given w/o incidense...mh 5Admin Note: per pt 6Admin Note: @ work 7Admin Note: cata posadas, pt denies allergies and cold symptoms, inj given w/o incident 8Result Comment: [10/25/2015] givin with out incident Medications acetaminophen 500 mg oral tablet 2 tablet, By Mouth, 3 times a day, # 180 tablet, 4 Refills, Maintenance, 01/04/25 8:56:00 AM EDT, [facility] #[id number], 170.18, cm, 01/04/25 8:36:00 EDT, Height, 106, kg, 01/04/25 8:36:00 EDT, Dry Weight Start Date: 01/04/25 Status: Ordered Medication Dispense Status: Completed Quantity: 180.0 Unit: tablet Total Allowed Fills: 5 Fills Dispensed: 0 albuterol 0.083% inhalation solution 3 mL = 2.5 mg, Neb, Every 6 hours, PRN as needed for wheezing, # 180 mL, 6 Refills, Maintenance, 05/21/25 4:16:00 PM EDT, [place], [facility] #[id number], Partial fill upon patient request if the prescription is for a schedule II opioid drug., 170, cm, 05/21/25 15:49:00 EDT, Height, 105.9, kg,05/08/25 15:25:00 EDT, Dry Weight Start Date: 05/21/25 Status: Ordered Medication Dispense Status: Completed Quantity: 180.0 Unit: mL Total Allowed Fills: 7 Fills Dispensed: 0 atorvastatin 80 mg oral tablet 1 tablet, By Mouth, Daily, # 30 tablet, 5 Refills, Maintenance, 07/18/25 5:12:00 PM EDT, [facility] #[id number], 170, cm, 07/17/25 12:49:00 EDT, Height, 105.9, kg, 05/08/25 15:25:00 EDT, Dry Weight Start Date: 07/18/25 Status: Ordered Medication Dispense Status: Completed Quantity: 30.0 Unit: tablet Total Allowed Fills: 1 Fills Dispensed: 0 azelastine nasal 0.15% spray 2 sprays = 411 mcg, Nares, Both, 2 times a day, PRN as needed for allergy symptoms, # 30 mL, 2 Refills, Maintenance, 04/16/25 11:36:00 AM EDT, [place], [facility] #[id number], Partial fill upon patient request if the prescription is for a schedule II opioid drug., 2 sprays Nares, Both 2 times a day,PRN:as needed for allergy symptoms, 170, cm, 04/16/25 11:19:00 EDT, Height, 105.5, kg, 04/16/25 11:19:00 EDT, Dry Weight Start Date: 04/16/25 Status: Ordered Medication Dispense Status: Completed Quantity: 30.0 Unit: mL Total Allowed Fills: 3 Fills Dispensed: 0 docusate sodium 100 mg oral capsule 1 capsule, By Mouth, 2 times a day, # 60 capsule, 5 Refills, Maintenance, 02/13/25 9:30:00 PM EDT, [facility] #[id number], 170.18, cm, 02/08/25 11:15:00 EDT, Height, 105, kg, 02/08/25 11:15:00 EDT, Dry Weight Start Date: 02/13/25 Status: Ordered Medication Dispense Status: Completed Quantity: 60.0 Unit: capsule Total Allowed Fills: 1 Fills Dispensed: 0 fexofenadine 180 mg oral tablet 1 tablet = 180 mg, By Mouth, Daily, # 90 tablet, 3 Refills, Maintenance, 04/16/25 11:33:00 AM EDT, Tablet, [facility] #[id number], Partial fill upon patient request if the prescription is for a schedule II opioid drug., 170, cm, 04/16/25 11:19:00 EDT, Height, 105.5, kg, 04/16/25 11:19:00 EDT, Dry Weight Start Date: 04/16/25 Status: Ordered Medication Dispense Status: Completed Quantity: 90.0 Unit: tablet Total Allowed Fills: 4 Fills Dispensed: 0 FLUoxetine 40 mg oral capsule 1 capsule, By Mouth, Daily, # 30 capsule, 6 Refills, Maintenance, 02/21/25 3:37:00 PM EDT, [facility] #[id number], 170.18, cm, 02/21/25 15:31:00 EDT, Height, 108.4, kg, 02/21/25 15:31:00 EDT, DryWeight Start Date: 02/21/25 Status: Ordered Medication Dispense Status: Completed Quantity: 30.0 Unit: capsule Total Allowed Fills: 7 Fills Dispensed: 0 fluticasone-salmeterol 500 mcg-50 mcg inhalation powder 1, puffs, Inhalation, 2 times a day, RINSE MOUTH AND THROAT AFTER USE, # 60 each, Refills 5, Maintenance, 05/28/25 11:33:00 AM EDT, Route to Pharmacy Electronically, [id number], [facility] #[id number], 170, cm, 05/21/25 15:49:00 EDT, Height, 105.9, kg, 05/08/25 15:25:00 EDT, Dry Weight Start Date: 05/28/25 Status: Ordered Medication Dispense Status: Completed Quantity: 60.0 Unit: each Total Allowed Fills: 1 Fills Dispensed: 0 gabapentin 300 mg oral capsule 2, capsule, By Mouth, 3 times a day, # 180 capsule, Refills 5, Tot. Refills 5, Maintenance, 08/08/25 3:18:00 PM EDT, Route to Pharmacy Electronically, [facility] #[id number], 170, cm, 08/08/25 15:01:00 EDT, Height, 99.6, kg, 08/08/25 15:01:00 EDT, Dry Weight Start Date: 08/08/25 Status: Ordered Medication Dispense Status: Completed Quantity: 180.0 Unit: capsule Total Allowed Fills: 6 Fills Dispensed: 0 hydrochlorothiazide 25 mg oral tablet 1, tablet, By Mouth, Daily, # 90 tablet, Refills 3, Tot. Refills 3, 05/08/25 3:43:00 PM EDT, Route to Pharmacy Electronically, [facility] #[id number], 170, cm, 05/08/25 15:25:00 EDT, Height, 105.9, kg, 05/08/25 15:25:00 EDT, Dry Weight Start Date: 05/08/25 Status: Ordered Medication Dispense Status: Completed Quantity: 90.0 Unit: tablet Total Allowed Fills: 4 Fills Dispensed: 0 irbesartan 300 mg oral tablet 1 tablet, By Mouth, Daily, # 30 tablet, 6 Refills, 08/08/25 3:19:00 PM EDT, [facility] #[id number], 170, cm, 08/08/25 15:01:00 EDT, Height, 99.6, kg, 08/08/25 15:01:00 EDT, Dry Weight Start Date: 08/08/25 Status: Ordered Medication Dispense Status: Completed Quantity: 30.0 Unit: tablet Total Allowed Fills: 7 Fills Dispensed: 0 montelukast 10 mg oral tablet 1, tablet, By Mouth, Daily, IN THE PM., # 90 tablet, Refills 1, Tot. Refills 1, Maintenance, 08/08/25 3:18:00 PM EDT, Route to Pharmacy Electronically, [facility] #[id number], 170, cm, 08/08/25 15:01:00 EDT, Height, 99.6, kg, 08/08/25 15:01:00 EDT, Dry Weight Start Date: 08/08/25 Status: Ordered Medication Dispense Status: Completed Quantity: 90.0 Unit: tablet Total Allowed Fills: 2 Fills Dispensed: 0 Nebulizer/Compressor See Instructions, # 1 each, Refills 11, Tot. Refills 11, Maintenance, Nebulizer Machine A7003 Neb Disp Set A7014 Neb non-Disp Filter A7005 Neb Non-Disp set A7015 Aerosol Mask A7013 Neb Disp Filter length of need lifetime 99 months for home use Dx J45.909, 05/22/25 10:22:00 AM EDT, Supply Start Date: 05/22/25 Status: Ordered Medication Dispense Status: Completed Quantity: 1.0 Unit: each Total Allowed Fills: 12 Fills Dispensed: 0 omeprazole 20 mg oral enteric coated capsule 1 capsule, By Mouth, 2 times a day, # 180 capsule, 1 Refills, Maintenance, 01/03/25 2:54:00 PM EDT, [facility] #[id number], 170.18, cm, 12/11/24 14:55:00 EST, Height, 113.5, kg, 08/17/24 15:07:00EST, Dry Weight Start Date: 01/03/25 Status: Ordered Medication Dispense Status: Completed Quantity: 180.0 Unit: capsule Total Allowed Fills: 2 Fills Dispensed: 0 ONE TOUCH ULTRA METER ONE TOUCH ULTRA METER, See Instructions, # 1 kit, Refills 0, Tot. Refills 0, Maintenance, USE TO TEST BLOOD SUGAR ONCE DAILY FOR E11.9., 12/27/20 8:36:00 AM EDT, Supply Start Date: 12/27/20 Status: Ordered Medication Dispense Status: Completed Quantity: 1.0 Unit: kit Total Allowed Fills: 1 Fills Dispensed: 0 ONE TOUCH ULTRA TEST STRIPS ONE TOUCH ULTRA TEST STRIPS, See Instructions, # 100 each, Refills 6, Tot. Refills 6, Maintenance, USE TO TEST BLOOD SUGAR ONCE DAILY FOR E11.9., 01/04/25 9:11:00 AM EDT, Supply, 170.18, cm, 01/04/25 8:36:00 EDT, Height, 106, kg, 01/04/25 8:36:00 EDT, Dry Weight Start Date: 01/04/25 Status: Ordered Medication Dispense Status: Completed Quantity: 100.0 Unit: each Total Allowed Fills: 7 Fills Dispensed: 0 Proventil HFA 90 mcg/inh inhalation aerosol with adapter 90 mcg, 1, inhalation, Inhalation, Every 4 hours, PRN, # 3 each, Refills 2, Tot. Refills 2, Maintenance, 05/08/25 3:51:00 PM EDT, Aerosol, Route to Pharmacy Electronically, [id number], [facility] #[id number], 170, cm, 05/08/25 15:25:00 EDT, Height, 105.9, kg, 05/08/25 15:25:00 EDT, Dry Weight Start Date: 05/08/25 Status: Ordered Medication Dispense Status: Completed Quantity: 3.0 Unit: each Total Allowed Fills: 3 Fills Dispensed: 0 Spacer Spacer, See Instructions, # 1 each, Refills 3, Tot. Refills 3, Maintenance, To be used with MDI as directed. ICD_10 J45.909, 05/21/25 4:14:00 PM EDT, Supply, 170, cm, 05/21/25 15:49:00 EDT, Height, 105.9, kg, 05/08/25 15:25:00 EDT, Dry Weight Start Date: 05/21/25 Status: Ordered Medication Dispense Status: Completed Quantity: 1.0 Unit: each Total Allowed Fills: 4 Fills Dispensed: 0 traMADol 50 mg oral tablet 1 tablet = 50 mg, By Mouth, Daily, PRN for pain, # 30 tablet, 0 Refills, Maintenance, 08/08/25 3:25:00 PM EDT, Tablet, [facility] #[id number], Partial fill upon patient request if the prescription is for a schedule II opioid drug., 170, cm, 08/08/25 15:01:00 EDT, Height, 99.6, kg, 08/08/25 15:0 1:00 EDT, Dry Weight Start Date: 08/08/25 Status: Ordered Medication Dispense Status: Completed Quantity: 30.0 Unit: tablet Total Allowed Fills: 1 Fills Dispensed: 0 Valtrex 500 mg oral tablet 2 tablet = 1,000 mg, By Mouth, Every 24 hours, # 30 tablet, 1 Refills, Maintenance, 02/10/11 3:53:53 PM EDT Start Date: 02/10/11 Stop Date: 03/12/11 Status: Ordered Medication Dispense Status: Completed Quantity: 30.0 Unit: tablet Total Allowed Fills: 1 Fills Dispensed: 0 Vitamin D3 1000 intl units oral tablet 1 tablet, By Mouth, Daily, # 30 tablet, 4 Refills, Maintenance, 08/08/25 3:19:00 PM EDT, [facility] #[id number], 170, cm, 08/08/25 15:01:00 EDT, Height, 99.6, kg, 08/08/25 15:01:00 EDT, Dry Weight Start Date: 08/08/25 Status: Ordered Medication Dispense Status: Completed Quantity: 30.0 Unit: tablet Total Allowed Fills: 5 Fills Dispensed: 0 Mental Status Mental Status Assessment Assessment Assessment Component Result Effecti ve Date Patient Health Questionnaire 2 item (PHQ-2) total score [Reported] 2 09/11/25 Problem List Condition Confirmation Course Effective Dates [...] Active Myofascial pain syndrome Confirmed 03/01/06 Active Obese class I Confirmed Active Lower extremity pain Confirmed Active Shoulder pain Confirmed Active Smoker Confirmed Active Low back pain Confirmed Active 1HPV positive Vital Signs Most recent to oldest [Reference Range]: 1 Height 170 cm (09/11/25 10:30 AM) Weight 97.3 kg (09/11/25 10:30 AM) Oxygen Saturation [94-100 %] 100 % (09/11/25 10:30 AM) Pulse Rate [55-90 bpm] 71 bpm (09/11/25 10:30 AM) Body Mass Index [18.5-24.99 kg/m2] 33.67 kg/m2 *H* (09/11/25 10:30 AM) Blood Pressure [90-138/55-84 mm Hg] 126/ 76mm Hg (09/11/25 10:30 AM) Temperature [96.8-100.4 DegF] 97.0 DegF (09/11/25 10:30 AM) Mode of Delivery (Oxygen) Room air (09/11/25 10:30 AM) Blood pressure sites Arm, left (09/11/25 10:30 AM) Weight Obtained Via Standing scale (09/11/25 10:30 AM) Social History Social History Type Response Smoking Status Former smoker, quit more than 30 days ago entered on: 05/21/25 Sexual Orientation Self described orien tation: ; Straight or heterosexual Sex Sex Representation Female (finding) Note * Lisbet Patterson: PERFORM Event Display: Patient Education/Instruction Authored Date: [id number] Ambulatory Adult Visit Summary [facility] [address] [place] [address] Name: EDWIN CLINE : 1965?? Visit: 09/11/2025 10:20?? Ambulatory Visit Instructions ?? Your Care Team Primary Care Provider Diana Rabago MD? This Visit Provider Luis Miguel Lawler MD Your Diagnosis Allergic reaction Vitals Signs Pulse Rate: 71 bpm Height: 170 cm Systolic Blood Pressure: 126 mm Hg Weight: 97.3 kg Diastolic Blood Pressure: 76 mm Hg Body Mass Index:??33.67 kg/m2??High Oxygen Saturation: 100 % Body surface area: 2.14 What to do next Scheduled Follow-Up Appointments 2025 2:40 PM EST ?? Type: Return With: Diana Rabago MD Where: [facility] [address] [place] [address]- Status: Pending Future Orders Hepatic Function Panel (7) - Routine, Once, 08/11/25 21:56:00 EDT, Order for Today, [facility], Blood?? Medications The list below reflects the information in our records and provided by you today along with any changes made during this visit. Please continue your medications until treatment is completed or stopped by your provider. If this is different from the information you have or there are other questions,please contact the prescribing provider. What How Much When Instructions Unchanged Acetaminophen (acetaminophen 500 mg oral tablet) 2 tab(s) Oral 3 times a day Ordering Physician: Diana Rabago MD Unchanged Albuterol (albuterol 0.083% inhalation solution) 3 Milliliter Nebulized inhalation Every 6 hours as needed for as needed for wheezing Ordering Physician: Ashley Christopher MD Unchanged Albuterol (Proventil HFA 90 mcg/ inh inhalation aerosol with adapter) 1 inhalation Inhalation Every 4 hours as needed for as needed for shortness of breath or wheezing Ordering Physician: Diana Rabago MD Unchanged Atorvastatin (atorvastatin 80 mg oral tablet) 1 tab(s) Oral Daily Ordering Physician: Diana Rabago MD Unchanged Azelastine Nasal (azelastine nasal 0.15% spray) 2 spray(s) Nares, Both Twice a day as needed for as needed for allergy symptoms Ordering Physician: Francisco Javier Martinez MD Unchanged Cholecalciferol (Vitamin D3 1000 intl units oral tablet) 1 tab(s) Oral Daily Ordering Physician: Diana Rabago MD Unchanged Docusate (docusate sodium 100 mg oral capsule) 1 capsule Oral Twice a day Ordering Physician: Diana Rabago MD Unchanged Durable Medical Equipment (Nebulizer/ Compressor) See instructions Special Instructions: Nebulizer Machine A7003 Neb Disp Set ??A7014 Neb non-Disp Filter ??A7005 Neb Non-Disp set A7015 Aerosol Mask A7013 Neb Disp Filter ??length of need lifetime 99 months ??for homeuse ??Dx J45.909 Ordering Physician: Ashley Christopher MD ?? Unchanged Durable Medical Equipment (Spacer) See instructions Special Instructions: To be used with MDI as directed. ICD_10 J45.909 Ordering Physician: Ashley Christopher MD ?? Unchanged Fexofenadine (fexofenadine 180 mg oral tablet) 1 tab(s) Oral Daily Ordering Physician: Francisco Javier Martinez MD Unchanged Fluoxetine (FLUoxetine 40 mg oral capsule) 1 capsule Oral Daily Ordering Physician: Diana Rabago MD Unchanged Fluticasone-Salmeterol (fluticasone-salmeterol 500 mcg-50 mcg inhalation powder) 1 puff(s) Inhalation Twice a day Special Instructions: RINSE MOUTH AND THROAT AFTER USE Ordering Physician: Diana Rabago MD ?? Unchanged Gabapentin (gabapentin 300 mg oral capsule) 2 capsule Oral 3 times a day Ordering Physician: Diana Rabago MD Unchanged Hydrochlorothiazide (hydrochlorothiazide 25 mg oral tablet) 1 tab(s) Oral Daily Ordering Physician: Diana Rabago MD Unchanged Irbesartan (irbesartan 300 mg oral tablet) 1 tab(s) Oral Daily Ordering Physician: Diana Rabago MD Unchanged Miscellaneous Rx (ONE TOUCH ULTRA METER) See instructions Special Instructions: USE TO TEST BLOOD SUGAR ONCE DAILY FOR E11.9. Ordering Physician: Diana Rabago MD ?? Unchanged Miscellaneous Rx (ONE TOUCH ULTRA TEST STRIPS) See instructions Special Instructions: USE TO TEST BLOOD SUGAR ONCE DAILY FOR E11.9. Ordering Physician: Diana Rabago MD ?? Unchanged Montelukast (montelukast 10 mg oral tablet) 1 tab(s) Oral Daily Special Instructions: IN THE PM. Ordering Physician: Diana Rabago MD ?? Unchanged Omeprazole (omeprazole 20 mg oral enteric coated capsule) 1 capsule Oral Twice a day Ordering Physician: Diana Rabago MD Unchanged Tramadol (traMADol 50 mg oral tablet) 1 tab(s) Oral Daily as needed for for pain Ordering Physician: Diana Rabago MD Unchanged ValACYclovir (Valtrex 500 mg oral tablet) 2 tab(s) Oral Every 24 hours Duration: 30 Days Medications and Immunizations Administered Medications Given During Visit No medications given during this visit.?? Allergies (NKA means No Known Allergies) Bactrim??rash Levaquin??rash Peanuts??Itch Percocet??itchy Seafood??Itch amoxicillin??rash angiotensin converting enzyme inhibitors??COUGH clindamycin doxycycline??rash erythromycin??rash oxyCODONE??itchy Common Emergency Awareness Tips IS IT A [...] are strongly encouraged to quit. Please call [employer] at [phone] or [phone]) or log in to [email or web address] for referrals to smoking cessation programs. ?? The National Suicide Prevention Hotline is available 03/05 if you or someone you know needs to find a reason to keep living. By calling 9-783-432-cqcb (7704) you'll be connected to a skilled, trained counselor at a crisis center in your area. [facility] [employer] Portal You can view and manage your care through the patient portal or by using a health care angle of your choosing. [employer] is a website that allows you to securely view your medical information including your hospital discharge summary, office visit summaries, medications and follow-up visits. You can also request appointments, renew medications, and request access to your medical information using a health care angel of your choosing, or just ask a question. You can enroll at [email or web address] or register during your next office visit. [facility], in keeping with [facility] guidance, no longer requires face masks for [...] care provider, you may find a [facility] provider by calling [facility] [employer] at [phone]. Patient Care team information Care Team Personnel Name: Juliette North RN Position: NICHOLAS RN Member Role: Primary Care Nurse Name: Diana Rabago MD Position: [place] Physician - Primary Care Member Role: PCP Address: [address] [place] [address] Adult and Pediatric [address] Telecom: Name: Annette Morales RN Position: S RN Member Role: Primary Care Nurse Name: Ivett Arroyo RN Position: S RN Member Role: Primary Care Nurse Name: Steve Ibarra Position: S RN Member Role: Primary Care Nurse Name: Delbert Shelton RN Position: S RN Member Role: Primary Care Nurse Care Team Related Persons Name: LUCIAN GELZ Name: LUCIAN GLEZ AND SHAQUILLE Name: CAROLYN CLINE Insurance Providers Guarantor name: EDWIN [facility] Information #: 1 Payer: [facility] Payer Identifier: NA Member Number: [id number] Group Number: [id number] Subscriber Identifier: [id number] Relationship to Subscriber: self Coverage Type: NA Coverage Verification Date: NA Telecom: Address:
--- OUTSIDE RECORDS SUMMARY | 2025-09-22 23:59 | XMS_ITS | Continuity of Care Document ---
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 [employer] Name Role Phone Diana Rabago MD Primary Care Physician En[place] [facility] [place](s): 08/23/25 - 09/22/25 [facility] [address] [place] [id number] Encounter Type: Triage Allergies, Adverse [...] vaccine, inactivated 6 08/11/11 Gi queta SARS-CoV-2(COVID-19)mRNA-LNP vac([id number]) 08/05/23 Recorded pneumococcal 20-valent conjugate vaccine 10/19/22 Given [id number] 12y+ bivalent booster vax 06/26/22 Recorded SARS-CoV-2 (COVID-19) mRNA BNT-162b2 vac 08/26/21 Recorded SARS-CoV-2 (COVID-19) mRNA BNT-162b2 vac 01/20/21 Recorded SARS-CoV-2 (COVID-19) mRNA BNT-162b2 vac 12/30/20 Recorded Influenza Virus Vaccine (oldterm) 07/19/19 Recorde d Influenza Virus Vaccine (oldterm) 7 08/09/08 Given tetanus/diphtheria/pertussis, acel(Tdap) 8 10/25/15 Given FluLaval (oldterm) 07/30/10 Given tetanus-diphtheria toxoids (Td) 11/16/05 Given Pneumococcal Vaccine (oldterm) 01/26/05 Given 1Result Comment: [facility] [id number] 2Result Comment: [facility] [id number] 3Result Comment: [08/24/2017] [facility] [id number] 4Result Comment: [07/11/2013] given w/o incidense...mh 5Admin Note: per pt 6Admin Note: @ work 7Admin Note: sonofi pasteur, pt denies allergies and cold symptoms, inj given w/o incident 8Result Comment: [10/25/2015] givin with out incident Medications acetaminophen 500 mg oral tablet 2 tablet, By Mouth, 3 times a day, # 180 tablet, 4 Refills, Maintenance, 01/04/25 8:56:00 AM EDT, [facility] #[id number], 170.18, cm, 01/04/25 8:36:00 EDT, Height, 106, kg, 01/04/25 8:36:00 EDT, Dry Weight Start Date: 01/04/25 Status: Ordered Medication Dispense Status: Completed Quantity: 180.0 Unit: tablet Total Allowed Fills: 5 Fills Dispensed: 0 albuterol 0.083% inhalation solution 3 mL = 2.5 mg, Neb, Every 6 hours, PRN as needed for wheezing, # 180 mL, 6 Refills, Maintenance, 05/21/25 4:16:00 PM EDT, Solution, [facility] #[id number], Partial fill upon patient request if the [...] 5 Refills, Maintenance, 07/18/25 5:12:00 PM EDT, [facility] #[id number], 170, cm, 07/17/25 12:49:00 EDT, Height, 105.9, [...] 2 Refills, Maintenance, 04/16/25 11:36:00 AM EDT, [place], [id number], Partial fill upon patient request if the [...] 5 Refills, Maintenance, 02/13/25 9:30:00 PM EDT, [facility] #[id number], 170.18, cm, 02/08/25 11:15:00 EDT, Height, 105, kg, 02/08/25 11:15:00 EDT, Dry Weight Start Date: 02/13/25 Status: Ordered Medication Dispense Status: Completed Quantity: 60.0 Unit: capsule Total Allowed Fills: 1 Fills Dispensed: 0 fexofenadine 180 mg oral tablet 1 tablet = 180 mg, By Mouth, Daily, # 90 tablet, 3 Refills, Maintenance, 04/16/25 11:33:00 AM EDT, Tablet, [facility] #[id number], Partial fill upon patient request if the [...] 6 Refills, Maintenance, 02/21/25 3:37:00 PM EDT, [facility] #[id number], 170.18, cm, 02/21/25 15:31:00 EDT, Height, 108.4, [...] 11:33:00 AM EDT, Route to Pharmacy Electronically, [id number], [facility] #[id number], 170, cm, 05/21/25 15:49:00 EDT, Height, 105.9, kg, 05/08/25 15:25:00 EDT, Dry Weight Start Date: 05/28/25 Status: Ordered Medication Dispense Status: Completed Quantity: 60.0 Unit: each Total Allowed Fills: 1 Fills Dispensed: 0 gabapentin 300 mg oral capsule 2, capsule, By Mouth, 3 times a day, # 180 capsule, Refills 5, Tot. Refills 5, Maintenance, 08/08/25 3:18:00 PM EDT, Route to Pharmacy Electronically, [id number], 170, cm, 08/08/25 15:01:00 EDT, Height, 99.6, kg, 08/08/25 15:01:00 EDT, Dry Weight Start Date: 08/08/25 Status: Ordered Medication Dispense Status: Completed Quantity: 180.0 Unit: capsule Total Allowed Fills: 6 Fills Dispensed: 0 hydrochlorothiazide 25 mg oral tablet 1, tablet, By Mouth, Daily, # 90 tablet, Refills 3, Tot. Refills 3, 05/08/25 3:43:00 PM EDT, Route to Pharmacy Electronically, [id number], 170, cm, 05/08/25 15:25:00 EDT, Height, 105.9, kg, 05/08/25 15:25:00 EDT, Dry Weight Start Date: 05/08/25 Status: Ordered Medication Dispense Status: Completed Quantity: 90.0 Unit: tablet Total Allowed Fills: 4 Fills Dispensed: 0 irbesartan 300 mg oral tablet 1 tablet, By Mouth, Daily, # 30 tablet, 6 Refills, 08/08/25 3:19:00 PM EDT, [id number], 170, cm, 08/08/25 15:01:00 EDT, Height, 99.6, kg, 08/08/25 15:01:00 EDT, Dry Weight Start Date: 08/08/25 Status: Ordered Medication Dispense Status: Completed Quantity: 30.0 Unit: tablet Total Allowed Fills: 7 Fills Dispensed: 0 montelukast 10 mg oral tablet 1, tablet, By Mouth, Daily, IN THE PM., # 90 tablet, Refills 1, Tot. Refills 1, Maintenance, 08/08/25 3:18:00 PM EDT, Route to Pharmacy Electronically, [facility][id number], 170, cm, 08/08/25 15:01:00 EDT, Height, 99.6, [...] 1 Refills, Maintenance, 01/03/25 2:54:00 PM EDT, [facility] #[id number], 170.18, cm, 12/11/24 14:55:00 EST, Height, 113.5, [...] PM EDT, Aerosol, Route to Pharmacy Electronically, [id number], [facility] #[id number], 170, cm, 05/08/25 15:25:00 EDT, Height, 105.9, [...] Refills, Maintenance, 08/08/25 3:25:00 PM EDT, Tablet, [facility] #[id number], Partial fill upon patient request if the [...] 4 Refills, Maintenance, 08/08/25 3:19:00 PM EDT, [facility] #[id number], 170, cm, 08/08/25 15:01:00 EDT, Height, 99.6, kg, 08/08/25 15:01:00 EDT, Dry Weight Start Date: 08/08/25 Status: Ordered Medication Dispense Status: Completed Quantity: 30.0 Unit: tablet Total Allowed Fills: 5 Fills Dispensed: 0 Problem List Condition Confirmation Course Effective Dates [...] or heterosexual Sex Sex Representation Female (finding) Patient Care team information Care Team Personnel Name: Juliette North RN Position: S RN Member Role: Primary Care Nurse Name: Diana Rabago MD Position: [facility] Physician - Primary Care Member Role: PCP Address: [address] [place] [address] Adult and Pediatric Medicine [place], [place] [id number] Telecom: Name: Annette Morales RN Position: S [...] CLINE Insurance Providers Guarantor name: EDWIN CLINE [facility] Plan Information #: 1 Payer: [facility] Payer Identifier: DIANA Member Number: [id number] Group Number: [id number] Subscriber Identifier: DIANA Relationship to Subscriber: self Coverage Type: NA Coverage Verification Date: NA Telecom: NA Address: NA
--- NOTE | 2025-09-24 14:24 | MHC.OFFVIS ---
Intake Visit Reasons: Inj-Right knee cortisone-last 10/02/24 Intake Note: Lisa is a 60 year old female who presents today for a repeat injection for her right knee, last injection was on 10/02/24. Patient reports her last injection gave her mild relief but still would like to repeat. Allergies amoxicillin Allergy (Mild, Verified 09/24/25 14:26) Itching doxycycline Allergy (Mild, Verified 09/24/25 14:26) Itching oxycodone Allergy (Mild, Verified 09/24/25 14:26) Itching Erythromycin Allergy (Mild, Uncoded 06/08/25 10:58) Itching HPI HPI Inj-Right knee cortisone-last 10/02/24: Details: Ms. Villatoro is a 60-year-old female who presents to the office today for chronic right knee pain due to osteoarthritis. Last cortisone injection was 10/02/2024. She is looking to repeat injection while in the office today. [facility] Medical History (Updated 09/13/25 @ 16:15 by Trina Grimes CNP) MACARIO (generalized anxiety disorder) Back pain Respiratory tract congestion with cough Environmental allergies Seasonal allergies History of cardiac murmur as a child Non-insulin dependent type 2 diabetes mellitus GERD (gastroesophageal reflux disease) Herpes Anxiety DJD (degenerative joint disease) Hyperlipidemia BMI 35.0-35.9,adult Obesity Arthritis Pre-diabetes HTN (hypertension) Surgical History (Updated 06/27/25 @ 09:46 by Mili Myrick CMA) Status post sleeve gastrectomy History of esophagogastroduodenoscopy (EGD) (09/27/24) History of back surgery (06/14/24) Hx of tonsillectomy History of cholecystectomy History of appendectomy Family History Mother Cancer Hypertension Abdominal seizure Father Family history unknown Social History Household Members: Spouse Housing: House Are you a primary acute care occupational therapist to a significant other at home: No Do you presently have visiting nurse or other home services: No Alcohol intake: current Alcohol intake frequency: holidays/special occasions only Alcohol type: wine Patient Tobacco Use Status: Former Tobacco user Tobacco use type: Cigarette Second Hand Smoke Exposure: No Substance Use Type: Former Substance User and Marijuana Current occupational status: employed 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 Walking comfortably. Psych Appearance: grossly normal Mental Status: mental status grossly normal Attitude: cooperative Office Procedures AMB Joint Injection/Aspiration Joint Injection/Aspiration Primary Site: Right Knee Prep: site was prepped using aseptic technique, ethochloride spray was applied and injection warnings given Injected: 40 mg of, Decadron, with 3 mL of, 1% plain Lidocaine, 0.25% Bupivacaine and in the joint Approach Used: anterolateral Procedure: The patient tolerated the procedure well, but had some pain with the injection and there was some relief with the local anesthesia Coding 41752 - Large joint Procedure code (CPT) selection complete Assessment & Plan Assessment & Plan (1) Localized osteoarthritis of right knee: Code(s): M17.11 - Unilateral primary osteoarthritis, right knee Category: Medical Plan The patient was offered a cortisone injection in right knee. The patient was explained the risks, benefits, and alternatives to receiving this injection. After receiving consent for the injection, the patient had the procedure done while in the office today. The patient tolerated the procedure well with no complications. The risks, benefits, and alternatives to a corticosteroid injection were discussed with the patient, including the potential benefits of decreased inflammation and pain, improved function, and diagnostic value. Risks were reviewed, including post-injection flare, skin or fat atrophy, transient facial flushing, temporary elevation in blood glucose, bruising, and rare but serious complications such as infection, tendon weakening or rupture, and cartilage damage with repeated injections. Procedure-related discomfort and possible vasovagal symptoms were also explained. Alternatives were reviewed, including NSAIDs, physical therapy, activity modification, bracing, ice/heat, weight management, hyaluronic acid injections when appropriate, PRP or other orthobiologics, oral steroids, surgery depending on pathology, and observation. The patient verbalized understanding and elected to proceed. After receiving consent for the injection, the patient had the procedure done while in the office today. The patient tolerated the procedure well with no complications. Follow-up will be PRN, or sooner if needed X-rays of the right knee which were obtained while in the office today and were reviewed by me, Gaby Aly PA-C, revealed osteoarthritis. No acute fracture or dislocation. Coding Level of Care Code Est Pt Level 3 (66995) Add On Problem Visit Only Diagnoses Localized osteoarthritis of right knee M17.11 CPT Codes Coding - 28162 Large joint: 38340 - Large joint ([id number])
--- OUTSIDE RECORDS SUMMARY | 2025-09-24 20:06 | XMS_ITS | Patient Health Record ---
Author Organization [facility] Address [address] [place] [address] Care Team Providers Care Copper Tapper Name Role Phone Diana Rabago MD Primary Care Provider Unavailab Flash Li Unavailable [phone] Allergies Allergen (clinical drug ingredient) Drug/Non Drug [...] W/U Status Risk Notes Problem Achilles bursitis (000496747) Achilles Tendonitis Bursitis (726.71) Active confirmed Problem Onychomycosis (709527419) Onychomycosis (110.1) Active confirmed Problem Disorder of sebaceous gland (9693012) Xerosis (706.8) Active confirmed Plan Of Treatment Pending Test Test Name Order Date X ray : Foot, right 3V 07/06/2011 Insurance Providers Payer Name Payer Address Payer Phone Subscriber Number Group Number Insured Name Patient Relationship to Insured Coverage Start Date Coverage End Date [facility] [address] [facility] [place] [address] [phone] [id number] Lisa Villatoro Self - patient is the insured Medical (General) History Medical History History ICD Code Arthritis back, hip, knee pain cataracts lupus chicken pox CAD Surgical History Surgery Date(Month/Year) gall bladder 2004
== END 2025-09-24 14:44 | disposition home or self-care (01) ==
LOC: HO.HOS 13:53
PROVIDERS: PCP Internal Medicine; Visit Provider Physician Assistant
DX: M17.11 Unilateral primary osteoarthritis, right knee (principal)
CPT/HCPCS: 20610; 99213

== ENCOUNTER → 2025-09-24 13:53 | Outpatient (BNVA) | payer OTHER, SELFPAY | PROVIDERS: PCP Internal Medicine; Visit Provider Physician Assistant | DX: M17.11 Unilateral primary osteoarthritis, right knee (principal) | CPT/HCPCS: 20610; J0665; J1100; J2003 ==